=== PATIENT | male | born 1950 | race Caucasian/White ===

== ENCOUNTER 2019-09-28 06:20 | Day surgery (SDC) | payer MEDICARE, SELFPAY | END 2019-09-28 09:30 | disposition home or self-care (01) | LOC: CHSSURGERY 06:24 | PROVIDERS: PCP Family Medicine; Visit Provider Surgery | DX: Z12.11 Encounter for screening for malignant neoplasm of colon (principal); Z86.010 Personal history of colon polyps; D12.5 Benign neoplasm of sigmoid colon; K57.90 Diverticulosis of intestine, part unspecified, without perforation or abscess without bleeding | CPT/HCPCS: 45385; 812; 88305; J2370; J2704; J7120 ==

== ENCOUNTER 2019-10-30 07:08 | Outpatient (CLI) | payer MEDICARE, SELFPAY ==
[2019-10-30 07:25] LABS: Basophils Absolute Auto 0.02 K/mm3 (0.00-0.10); Basophils Percent Auto 0.5 % (0.0-1.0); Eosinophils Absolute Auto 0.07 K/mm3 (0.02-0.50); Eosinophils Percent Auto 1.6 % (1.0-6.0); Hematocrit 42.8 % (37.0-46.0); Immature Granulocyte Absolute 0.01 K/mm3 (0.00-0.00); Immature Granulocyte Percent A 0.2 % (0.0-0.0); Lymphocytes Absolute Auto 1.52 K/mm3 (1.10-4.50); Lymphocytes Percent Auto 34.5 % (18.0-42.0); Mean Corpuscular Hemoglobin 32.3 pg (27.0-31.0); Mean Corpuscular Volume 92.2 fL (78.0-102.0); Mean Platelet Volume 10.4 fl (8.7-11.0); Monocytes Absolute Auto 0.46 K/mm3 (0.10-0.90); Monocytes Percent Auto 10.5 % (2.0-11.0); Neutrophils Absolute Auto 2.3 K/mm3 (1.7-7.2); Neutrophils Percent Auto 52.7 % (50.0-70.0); Platelet Count Result 164 K/mm3 (150-420); Red Blood Count 4.64 M/mm3 (4.70-6.10); Red Cell Distribution Width 13.2 % (11.6-14.4); White Blood Count 4.4 K/mm3 (4.8-10.8)
[2019-10-30 08:24] LABS: Albumin Level 3.8 g/dL (3.4-5.0); Anion Gap 11.9 mmol/L (7-16); Blood Urea Nitrogen 24 mg/dL (7-18); Calcium 8.7 mg/dL (8.5-10.1); Carbon Dioxide 29 mmol/L (21-32); Chloride 106 mmol/L (98-108); Estimated Glomerular Filt Rate 55; Glucose 98 mg/dL (70-99); Osmolality Calculated 300 mOsm/kg (285-295); Potassium 3.9 mmol/L (3.5-5.1); Sodium 143 mmol/L (136-145)
[2019-10-30 08:34] LABS: Phosphorus 3.4 mg/dL (2.6-4.7)
[2019-11-01 11:46] LABS: Parathyroid Intact 49 pg/mL (14-64)
[2019-11-01 19:09] LABS: Vitamin D 25 Hydroxy 38 ng/mL (30-100)
== END 2019-10-30 07:09 | disposition home or self-care (01) ==
PROVIDERS: PCP Family Medicine
DX: N18.3 Chronic kidney disease, stage 3 (moderate) (principal)
CPT/HCPCS: 36415; 80069; 82306; 83970; 85025

== ENCOUNTER 2020-06-07 08:38 | Outpatient (CLI) | payer MEDICARE, SELFPAY ==
--- NOTE | ~2020-06-07 | XR_ITS ---
EXAMINATION: XR lumbar spine 2-3V DATE: 06/07/2020 09:17 INDICATION: Dorsalgia. TECHNIQUE: 3 views of lumbar spine were obtained. COMPARISON: None. FINDINGS: There is 8 degrees levocurvature of lumbar spine. There are bilateral L5 pars defects. Ther e is 7 mm anterolisthesis of L5 on S1. Vertebral body heights are normal. There is mildly decreased d isc at L5-S1. There are endplate osteophytes at all levels. IMPRESSION: 1. Bilateral L5 pars defects with grade 1 anterolisthesis of L5 on S1. 2. Mild lumbar spondylosis. Reviewed, dictated and finalized at location A.
--- NOTE | ~2020-06-07 | XR_ITS ---
EXAMINATION: XR thoracic spine 3V DATE: 06/07/2020 09:18 INDICATION: Dorsalgia. TECHNIQUE: 3 views of thoracic spine were obtained. COMPARISON: Chest 2 views 06/09/2012 FINDINGS: Bone alignment is normal. Vertebral body heights and intervertebral disc heights are normal . There are endplate osteophytes at most levels. Median sternotomy wires are noted. IMPRESSION: 1. Mild thoracic spondylosis. Reviewed, dictated and finalized at location A.
== END 2020-06-07 08:39 | disposition home or self-care (01) ==
PROVIDERS: PCP Family Medicine; Visit Provider Family Medicine
DX: M54.6 Pain in thoracic spine (principal); M54.5 Low back pain
CPT/HCPCS: 72072; 72100

== ENCOUNTER 2020-06-11 12:50 | Outpatient (RCR) | payer MEDICARE, SELFPAY ==
--- NOTE | 2020-06-11 14:04 | PTOPEVAL ---
Thank you for referring Daniel Tatum to [facility].? The patient is scheduled to be seen for therapy? ____x/week for ___ weeks. Please review, sign, date and return this plan of care ANA. I agree with and certify that the following plan of care is medically necessary. Referring Physician Date Admitting Provider: Attending Provider: William Vicente MD Referring Provider: *PT Outpatient Evaluation Start: 06/11/20 13:05 Freq: Status: Active Protocol: Document 06/11/20 13:10 [facility] (Rec: 06/11/20 14:04 [facility] [id number]) Therapy Assessment Status Assessment Status Assessment Status Evaluation Outpatient Past Medical History Past Medical History Source of Past Medical History Patient Other Source of Past Medical History see patient intake form Evaluation Information Problem Diagnosis low back pain Onset 06/07/20 Additional Evaluation Detail oswestry = 58% functionally declined Subjective Information patient reports he is having Query Text:As Reported By Patient/ pain in the back. he reports Family he hurt his back several times in the past. however, he reports his most recent injury was about 2-3 weeks ago. he reports pain was only for about 24-48 hours. 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 he reports the pain was from his back to his navel. he reports he had x-rays of the lumbar spine and was given oral steroids. he reports these helped him a ton. he reports he is much better, but he has increased stiffness with sitting, twisting activities, avoiding lifting. he reports no NTB down the legs. he reports however, initially he did have burning from back to his navel. he reports majority of this sensation is gone. Prior Level of Function Comments Additional Prior Level of Function he reports prior to injury, he Comments was pretty active. he reports he is in the middle of building a house and may
== END 2020-06-20 13:47 | disposition home or self-care (01) ==
LOC: CHSPT 12:50
PROVIDERS: PCP Family Medicine; Visit Provider Family Medicine
DX: M54.9 Dorsalgia, unspecified (principal)
CPT/HCPCS: 97014; 97110; 97140; 97161; G0283

== ENCOUNTER 2020-10-07 08:01 | Outpatient (CLI) | payer MEDICARE, SELFPAY ==
[2020-10-07 08:19] LABS: Basophils Absolute Auto 0.04 K/mm3 (0.00-0.10); Basophils Percent Auto 0.8 % (0.0-1.0); Eosinophils Absolute Auto 0.12 K/mm3 (0.02-0.50); Eosinophils Percent Auto 2.4 % (1.0-6.0); Hematocrit 42.8 % (37.0-46.0); Hemoglobin 14.8 g/dL (12.4-15.3); Immature Granulocyte Absolute 0.01 K/mm3 (0.00-0.00); Immature Granulocyte Percent A 0.2 % (0.0-0.0); Lymphocytes Absolute Auto 1.32 K/mm3 (1.10-4.50); Lymphocytes Percent Auto 26.3 % (18.0-42.0); Mean Corpuscular HGB Conc 34.6 g/dL (32.0-36.0); Mean Corpuscular Hemoglobin 32.2 pg (27.0-31.0); Mean Platelet Volume 10.7 fl (8.7-11.0); Monocytes Absolute Auto 0.42 K/mm3 (0.10-0.90); Monocytes Percent Auto 8.4 % (2.0-11.0); Neutrophils Absolute Auto 3.1 K/mm3 (1.7-7.2); Neutrophils Percent Auto 61.9 % (50.0-70.0); Platelet Count Result 157 K/mm3 (150-420); Red Cell Distribution Width 13.3 % (11.6-14.4)
[2020-10-07 08:23] LABS: Creatinine Urine 194.28 mg/dL (40-278); Total Protein Urine Random 25.3 mg/dL (0.0-11.9); Ur Ttl Prot Creatinine Ratio 0.13 mg/mg (0-0.20)
[2020-10-07 08:24] LABS: Add Urine Microscopic? NO; Appearance Urine Clear (Clear); Bilirubin Urine Negative (Negative); Blood Urine Negative (Negative); Color Urine Yellow (Yellow); Glucose Urine UA Negative (Negative); Ketones Urine Negative (Negative); Leukocyte Esterase Ur Negative (Negative); Nitrate Urine Negative (Negative); Protein Urine Negative (Negative); Specific Grav Ur 1.025 (1.010-1.020); Urobilinogen Urine 0.2 mg/dL (0.2-1.0)
[2020-10-07 08:46] LABS: Albumin Level 3.7 g/dL (3.4-5.0); Anion Gap 8 mmol/L (8-16); Blood Urea Nitrogen 20 mg/dL (7-18); Calcium 9.6 mg/dL (8.5-10.1); Carbon Dioxide 30 mmol/L (21-32); Chloride 105 mmol/L (98-108); Estimated Glomerular Filt Rate 51; Glucose 107 mg/dL (70-99); Osmolality Calculated 298 mOsm/kg (285-295); Phosphorus 3.4 mg/dL (2.6-4.7); Potassium 3.9 mmol/L (3.5-5.1); Sodium 143 mmol/L (136-145)
[2020-10-09 12:22] LABS: Parathyroid Intact 34 pg/mL (14-64)
== END 2020-10-07 08:02 | disposition home or self-care (01) ==
PROVIDERS: PCP Family Medicine
DX: N18.30 Chronic kidney disease, stage 3 unspecified (principal)
CPT/HCPCS: 36415; 80069; 81003; 82570; 83970; 84156; 85025

== ENCOUNTER 2020-10-15 07:36 | Outpatient (CLI) | payer MEDICARE, SELFPAY ==
[2020-10-15 07:45] LABS: Basophils Absolute Auto 0.02 K/mm3 (0.00-0.10); Basophils Percent Auto 0.5 % (0.0-1.0); Eosinophils Absolute Auto 0.08 K/mm3 (0.02-0.50); Hematocrit 43.8 % (37.0-46.0); Hemoglobin 14.9 g/dL (12.4-15.3); Immature Granulocyte Absolute 0.01 K/mm3 (0.00-0.00); Immature Granulocyte Percent A 0.2 % (0.0-0.0); Lymphocytes Absolute Auto 1.27 K/mm3 (1.10-4.50); Mean Corpuscular Hemoglobin 31.7 pg (27.0-31.0); Mean Corpuscular Volume 93.2 fL (78.0-102.0); Mean Platelet Volume 10.5 fl (8.7-11.0); Monocytes Absolute Auto 0.41 K/mm3 (0.10-0.90); Neutrophils Absolute Auto 2.3 K/mm3 (1.7-7.2); Neutrophils Percent Auto 56.3 % (50.0-70.0); Platelet Count Result 164 K/mm3 (150-420); Red Cell Distribution Width 13.2 % (11.6-14.4); White Blood Count 4.1 K/mm3 (4.8-10.8)
[2020-10-15 08:08] LABS: Anion Gap 6 mmol/L (8-16); Blood Urea Nitrogen 17 mg/dL (7-18); Calcium 8.8 mg/dL (8.5-10.1); Carbon Dioxide 31 mmol/L (21-32); Chloride 104 mmol/L (98-108); Estimated Glomerular Filt Rate 52; Glucose 118 mg/dL (70-99); Osmolality Calculated 294 mOsm/kg (285-295); Sodium 141 mmol/L (136-145)
[2020-10-15 14:32] LABS: Hemoglobin A1C 5.7 % (<5.7)
== END 2020-10-15 07:37 | disposition home or self-care (01) ==
LOC: CHSLAB 07:37
PROVIDERS: PCP Family Medicine; Visit Provider Family Medicine
DX: I10 Essential (primary) hypertension (principal); R73.9 Hyperglycemia, unspecified
CPT/HCPCS: 36415; 80048; 83036; 85025

== ENCOUNTER 2021-03-31 14:52 | Outpatient (CLI) | payer MEDICARE, SELFPAY ==
[2021-03-31 15:40] LABS: SARS-CoV-2 Ag Negative (Negative)
== END 2021-03-31 14:53 | disposition home or self-care (01) ==
LOC: CHSIMG 14:54
PROVIDERS: PCP Family Medicine; Visit Provider Family Medicine
DX: J00 Acute nasopharyngitis [common cold] (principal); Z20.822 Contact with and (suspected) exposure to COVID-19
CPT/HCPCS: 87426; C9803

== ENCOUNTER 2021-04-17 07:00 | Outpatient (CLI) | payer MEDICARE, SELFPAY ==
[2021-04-17 08:36] LABS: Alanine Aminotransferase 33 U/L (16-63); Albumin Level 3.5 g/dL (3.4-5.0); Alkaline Phosphatase 78 U/L (46-116); Anion Gap 8 mmol/L (8-16); Aspartate Amino Transferase 17 U/L (15-37); Bilirubin,Total 0.8 mg/dL (0.00-1.00); Blood Urea Nitrogen 16 mg/dL (7-18); Calcium 8.9 mg/dL (8.5-10.1); Carbon Dioxide 29 mmol/L (21-32); Chloride 106 mmol/L (98-108); Cholesterol 132 mg/dL (0-200); Estimated Glomerular Filt Rate 59; Glucose 108 mg/dL (70-99); HDL Direct 50 mg/dL (40-60); LDL Cholesterol Calculated 67 mg/dL (<130); Osmolality Calculated 298 mOsm/kg (285-295); Potassium 3.8 mmol/L (3.5-5.1); Prostate Specific Antigen 2.5 ng/mL (< OR = 4.0); Sodium 143 mmol/L (136-145); Thyroid Stimulating Hormone 1.48 uIU/mL (0.36-3.74); Total Protein 7.1 g/dL (6.4-8.2); Triglycerides 75 mg/dL (0-150)
== END 2021-04-17 07:01 | disposition home or self-care (01) ==
LOC: CHSLAB 07:01
PROVIDERS: PCP Family Medicine; Visit Provider Family Medicine
DX: I10 Essential (primary) hypertension (principal); E78.2 Mixed hyperlipidemia; Z12.5 Encounter for screening for malignant neoplasm of prostate
CPT/HCPCS: 36415; 80053; 80061; 84153; 84443; G0103

== ENCOUNTER 2021-10-13 07:04 | Outpatient (CLI) | payer MEDICARE, SELFPAY ==
[2021-10-13 07:43] LABS: Basophils Absolute Auto 0.03 K/mm3 (0.00-0.10); Basophils Percent Auto 0.7 % (0.0-1.0); Eosinophils Absolute Auto 0.18 K/mm3 (0.02-0.50); Eosinophils Percent Auto 4.3 % (1.0-6.0); Hematocrit 45.7 % (37.0-46.0); Hemoglobin 15.6 g/dL (12.4-15.3); Immature Granulocyte Absolute 0.01 K/mm3 (0.00-0.00); Immature Granulocyte Percent A 0.2 % (0.0-0.0); Lymphocytes Absolute Auto 1.22 K/mm3 (1.10-4.50); Lymphocytes Percent Auto 29.4 % (18.0-42.0); Mean Corpuscular HGB Conc 34.1 g/dL (32.0-36.0); Mean Corpuscular Hemoglobin 32.2 pg (27.0-31.0); Mean Corpuscular Volume 94.2 fL (78.0-102.0); Monocytes Absolute Auto 0.38 K/mm3 (0.10-0.90); Monocytes Percent Auto 9.2 % (2.0-11.0); Neutrophils Absolute Auto 2.3 K/mm3 (1.7-7.2); Neutrophils Percent Auto 56.2 % (50.0-70.0); Platelet Count Result 174 K/mm3 (150-420); Red Blood Count 4.85 M/mm3 (4.70-6.10); Red Cell Distribution Width 13.2 % (11.6-14.4); White Blood Count 4.2 K/mm3 (4.8-10.8)
[2021-10-13 09:04] LABS: Creatinine Urine 128.34 mg/dL (40-278); MALB Creatinine Ratio 15.5 mg/g (0-30); Microalbumin Urine Random 19.9 mg/L; Total Protein Urine Random 22.3 mg/dL (0.0-11.9); Ur Ttl Prot Creatinine Ratio 0.17 mg/mg (0-0.20)
[2021-10-13 09:16] LABS: Alanine Aminotransferase 27 U/L (16-63); Albumin Level 3.7 g/dL (3.4-5.0); Alkaline Phosphatase 76 U/L (46-116); Anion Gap 10 mmol/L (8-16); Aspartate Amino Transferase 18 U/L (15-37); Bilirubin,Total 0.7 mg/dL (0.00-1.00); Blood Urea Nitrogen 16 mg/dL (7-18); Calcium 8.9 mg/dL (8.5-10.1); Carbon Dioxide 29 mmol/L (21-32); Chloride 105 mmol/L (98-108); Estimated Glomerular Filt Rate 53; Glucose 108 mg/dL (70-99); Osmolality Calculated 300 mOsm/kg (285-295); Phosphorus 3.1 mg/dL (2.6-4.7); Potassium 4.1 mmol/L (3.5-5.1); Prostate Specific Antigen 1.9 ng/mL (< OR = 4.0); Sodium 144 mmol/L (136-145); Total Protein 7.4 g/dL (6.4-8.2)
[2021-10-13 16:49] LABS: Add Urine Microscopic? NO; Appearance Urine Clear (Clear); Bilirubin Urine Negative (Negative); Blood Urine Negative (Negative); Color Urine Light Yellow (Yellow); Glucose Urine UA Negative (Negative); Ketones Urine Negative (Negative); Leukocyte Esterase Ur Negative (Negative); Nitrate Urine Negative (Negative); Protein Urine Negative (Negative); Urobilinogen Urine 0.2 mg/dL (0.2-1.0); pH Urine 7.5 (5.0-8.0)
== END 2021-10-13 07:05 | disposition home or self-care (01) ==
LOC: CHSLAB 07:10
PROVIDERS: PCP Family Medicine
DX: E78.2 Mixed hyperlipidemia (principal); I10 Essential (primary) hypertension; Z12.5 Encounter for screening for malignant neoplasm of prostate; N18.30 Chronic kidney disease, stage 3 unspecified
CPT/HCPCS: 36415; 80053; 81003; 82043; 82570; 84100; 84153; 84156; 85025; G0103

== ENCOUNTER 2022-04-24 07:16 | Outpatient (CLI) | payer MEDICARE, SELFPAY ==
[2022-04-24 07:26] LABS: Basophils Absolute Auto 0.04 K/mm3 (0.00-0.10); Basophils Percent Auto 0.9 % (0.0-1.0); Eosinophils Absolute Auto 0.19 K/mm3 (0.02-0.50); Eosinophils Percent Auto 4.3 % (1.0-6.0); Hematocrit 43.2 % (37.0-46.0); Hemoglobin 14.7 g/dL (12.4-15.3); Immature Granulocyte Absolute 0.01 K/mm3 (0.00-0.00); Immature Granulocyte Percent A 0.2 % (0.0-0.0); Lymphocytes Absolute Auto 1.35 K/mm3 (1.10-4.50); Lymphocytes Percent Auto 30.5 % (18.0-42.0); Mean Corpuscular Hemoglobin 31.7 pg (27.0-31.0); Mean Corpuscular Volume 93.3 fL (78.0-102.0); Mean Platelet Volume 10.8 fl (8.7-11.0); Monocytes Absolute Auto 0.45 K/mm3 (0.10-0.90); Monocytes Percent Auto 10.2 % (2.0-11.0); Neutrophils Absolute Auto 2.4 K/mm3 (1.7-7.2); Neutrophils Percent Auto 53.9 % (50.0-70.0); Platelet Count Result 154 K/mm3 (150-420); Red Blood Count 4.63 M/mm3 (4.70-6.10); Red Cell Distribution Width 13.7 % (11.6-14.4); White Blood Count 4.4 K/mm3 (4.8-10.8)
[2022-04-24 07:43] LABS: Alanine Aminotransferase 25 U/L (16-63); Albumin Level 3.7 g/dL (3.4-5.0); Alkaline Phosphatase 86 U/L (46-116); Anion Gap 9 mmol/L (8-16); Aspartate Amino Transferase 19 U/L (15-37); Bilirubin,Total 0.7 mg/dL (0.00-1.00); Blood Urea Nitrogen 15 mg/dL (7-18); Calcium 8.8 mg/dL (8.5-10.1); Carbon Dioxide 27 mmol/L (21-32); Chloride 102 mmol/L (98-108); Estimated Glomerular Filt Rate 51; Glucose 113 mg/dL (70-99); Osmolality Calculated 287 mOsm/kg (285-295); Potassium 3.5 mmol/L (3.5-5.1); Sodium 138 mmol/L (136-145); Total Protein 7.3 g/dL (6.4-8.2)
== END 2022-04-24 07:17 | disposition home or self-care (01) ==
LOC: CHSLAB 07:18
PROVIDERS: PCP Family Medicine; Visit Provider Family Medicine
DX: I10 Essential (primary) hypertension (principal)
CPT/HCPCS: 36415; 80053; 85025

== ENCOUNTER 2022-10-23 07:20 | Outpatient (CLI) | payer MEDICARE, SELFPAY ==
[2022-10-23 07:49] LABS: Appearance Urine Clear (Clear); Bilirubin Urine Negative (Negative); Blood Urine Negative (Negative); Color Urine Light Yellow (Yellow); Glucose Urine UA Negative (Negative); Ketones Urine Negative (Negative); Leukocyte Esterase Ur Negative (Negative); Nitrate Urine Negative (Negative); Protein Urine Negative (Negative); Specific Grav Ur <= 1.005 (1.010-1.020); Urobilinogen Urine 0.2 mg/dL (0.2-1.0); pH Urine 6.5 (5.0-8.0)
[2022-10-23 07:50] LABS: Basophils Absolute Auto 0.02 K/mm3 (0.00-0.10); Basophils Percent Auto 0.5 % (0.0-1.0); Eosinophils Absolute Auto 0.08 K/mm3 (0.02-0.50); Eosinophils Percent Auto 1.8 % (1.0-6.0); Hematocrit 47.5 % (37.0-46.0); Hemoglobin 16.5 g/dL (12.4-15.3); Immature Granulocyte Absolute 0.01 K/mm3 (0.00-0.00); Immature Granulocyte Percent A 0.2 % (0.0-0.0); Lymphocytes Absolute Auto 1.63 K/mm3 (1.10-4.50); Lymphocytes Percent Auto 37.1 % (18.0-42.0); Mean Corpuscular HGB Conc 34.7 g/dL (32.0-36.0); Mean Corpuscular Hemoglobin 32.5 pg (27.0-31.0); Mean Corpuscular Volume 93.7 fL (78.0-102.0); Monocytes Percent Auto 9.1 % (2.0-11.0); Neutrophils Absolute Auto 2.3 K/mm3 (1.7-7.2); Neutrophils Percent Auto 51.3 % (50.0-70.0); Platelet Count Result 157 K/mm3 (150-420); Red Blood Count 5.07 M/mm3 (4.70-6.10); Red Cell Distribution Width 13.2 % (11.6-14.4); White Blood Count 4.4 K/mm3 (4.8-10.8)
[2022-10-23 07:54] LABS: Add Urine Microscopic? NO
[2022-10-23 09:05] LABS: Creatinine Urine 24.03 mg/dL (40-278); Microalbumin Urine Random < 13.0 mg/L; Total Protein Urine Random < 6.0 mg/dL (0.0-11.9); Ur Ttl Prot Creatinine Ratio 0.25 mg/mg (0-0.20)
[2022-10-23 09:20] LABS: Albumin Level 4.1 g/dL (3.4-5.0); Alkaline Phosphatase 96 U/L (46-116); Anion Gap 13 mmol/L (8-16); Aspartate Amino Transferase 24 U/L (15-37); Bilirubin,Total 0.8 mg/dL (0.00-1.00); Blood Urea Nitrogen 15 mg/dL (7-18); Carbon Dioxide 26 mmol/L (21-32); Chloride 101 mmol/L (98-108); Osmolality Calculated 285 mOsm/kg (285-295); Phosphorus 3.8 mg/dL (2.6-4.7); Potassium 4.1 mmol/L (3.5-5.1); Sodium 140 mmol/L (136-145)
[2022-10-23 09:30] LABS: Alanine Aminotransferase 40 U/L (16-63); Calcium 9.7 mg/dL (8.5-10.1); Estimated Glomerular Filt Rate 49
[2022-10-23 09:53] LABS: Glucose 113 mg/dL (70-99); Thyroid Stimulating Hormone 1.35 uIU/mL (0.36-3.74)
== END 2022-10-23 07:21 | disposition home or self-care (01) ==
LOC: CHSLAB 07:26
PROVIDERS: PCP Family Medicine
DX: I10 Essential (primary) hypertension (principal); N18.30 Chronic kidney disease, stage 3 unspecified
CPT/HCPCS: 36415; 80053; 81003; 82043; 82570; 84100; 84156; 84443; 85025

== ENCOUNTER 2023-03-18 07:18 | Outpatient (CLI) | payer MEDICARE, SELFPAY ==
--- NOTE | ~2023-03-18 | MR_ITS ---
EXAMINATION: MR abdomen wo/w con DATE: 03/18/2023 09:03 INDICATION: Kidney mass. TECHNIQUE: Magnetic resonance imaging (MRI) of the abdomen was performed without and with 20 mL Multi Pawan intravenous contrast. COMPARISON: None. FINDINGS: The liver is normal. Calcifications in the spleen are consistent with old granulomatous disease. Ther e is a gallstone in the gallbladder, which is normal in size. The pancreas and adrenal glands are nor mal. There are cysts in the kidneys measuring up to 11 mm on the left. There are no dilated loops of bowel. There are no pathologically enlarged lymph nodes. There is no free intraperitoneal fluid. IMPRESSION: 1. Benign cysts in the kidneys. Reviewed, dictated and finalized at location L.
== END 2023-03-18 07:19 | disposition home or self-care (01) ==
LOC: CHSIMG 07:22
PROVIDERS: PCP Family Medicine
DX: N28.89 Other specified disorders of kidney and ureter (principal)
CPT/HCPCS: 74183; A9577

== ENCOUNTER 2023-04-26 07:17 | Outpatient (CLI) | payer MEDICARE, SELFPAY ==
[2023-04-26 07:35] LABS: Basophils Absolute Auto 0.03 K/mm3 (0.00-0.10); Basophils Percent Auto 0.7 % (0.0-1.0); Eosinophils Absolute Auto 0.11 K/mm3 (0.02-0.50); Eosinophils Percent Auto 2.5 % (1.0-6.0); Hematocrit 43.6 % (37.0-46.0); Hemoglobin 14.8 g/dL (12.4-15.3); Immature Granulocyte Absolute 0.01 K/mm3 (0.00-0.00); Immature Granulocyte Percent A 0.2 % (0.0-0.0); Lymphocytes Percent Auto 29.7 % (18.0-42.0); Mean Corpuscular HGB Conc 33.9 g/dL (32.0-36.0); Mean Corpuscular Hemoglobin 32.1 pg (27.0-31.0); Mean Corpuscular Volume 94.6 fL (78.0-102.0); Mean Platelet Volume 10.6 fl (8.7-11.0); Monocytes Absolute Auto 0.35 K/mm3 (0.10-0.90); Neutrophils Absolute Auto 2.6 K/mm3 (1.7-7.2); Neutrophils Percent Auto 58.9 % (50.0-70.0); Platelet Count Result 157 K/mm3 (150-420); Red Blood Count 4.61 M/mm3 (4.70-6.10); Red Cell Distribution Width 13.4 % (11.6-14.4); White Blood Count 4.4 K/mm3 (4.8-10.8)
[2023-04-26 08:36] LABS: Alanine Aminotransferase 25 U/L (16-63); Albumin Level 3.8 g/dL (3.4-5.0); Alkaline Phosphatase 86 U/L (46-116); Anion Gap 8 mmol/L (8-16); Aspartate Amino Transferase 26 U/L (15-37); Bilirubin,Total 0.8 mg/dL (0.00-1.00); Blood Urea Nitrogen 18 mg/dL (7-18); Calcium 9.1 mg/dL (8.5-10.1); Carbon Dioxide 28 mmol/L (21-32); Chloride 105 mmol/L (98-108); Cholesterol 159 mg/dL (0-200); Estimated Glomerular Filt Rate 50; Glucose 113 mg/dL (70-99); HDL Direct 55 mg/dL (40-60); LDL Cholesterol Calculated 63 mg/dL (<130); Osmolality Calculated 294 mOsm/kg (285-295); Potassium 4.1 mmol/L (3.5-5.1); Sodium 141 mmol/L (136-145); Thyroid Stimulating Hormone 1.89 uIU/mL (0.36-3.74); Total Protein 7.2 g/dL (6.4-8.2); Triglycerides 203 mg/dL (0-150); Uric Acid 5.5 mg/dL (3.5-7.2)
== END 2023-04-26 07:18 | disposition home or self-care (01) ==
LOC: CHSLAB 07:20
PROVIDERS: PCP Family Medicine; Visit Provider Family Medicine
DX: I10 Essential (primary) hypertension (principal); E78.2 Mixed hyperlipidemia
CPT/HCPCS: 36415; 80053; 80061; 84443; 84550; 85025

== ENCOUNTER 2023-07-12 07:12 | Outpatient (CLI) | payer MEDICARE, SELFPAY ==
[2023-07-12 07:42] LABS: Appearance Urine Clear (Clear); Bilirubin Urine Negative (Negative); Blood Urine Negative (Negative); Color Urine Yellow (Yellow); Glucose Urine UA Negative (Negative); Ketones Urine Negative (Negative); Leukocyte Esterase Ur Negative (Negative); Nitrate Urine Negative (Negative); Protein Urine Negative (Negative); Specific Grav Ur 1.015 (1.010-1.020); Urobilinogen Urine 0.2 mg/dL (0.2-1.0)
[2023-07-12 07:43] LABS: Basophils Absolute Auto 0.03 K/mm3 (0.00-0.10); Basophils Percent Auto 0.7 % (0.0-1.0); Eosinophils Absolute Auto 0.09 K/mm3 (0.02-0.50); Eosinophils Percent Auto 2.2 % (1.0-6.0); Hematocrit 43.6 % (37.0-46.0); Hemoglobin 14.6 g/dL (12.4-15.3); Immature Granulocyte Absolute 0.01 K/mm3 (0.00-0.00); Immature Granulocyte Percent A 0.2 % (0.0-0.0); Lymphocytes Percent Auto 29.1 % (18.0-42.0); Mean Corpuscular HGB Conc 33.5 g/dL (32.0-36.0); Mean Corpuscular Hemoglobin 31.9 pg (27.0-31.0); Mean Corpuscular Volume 95.4 fL (78.0-102.0); Monocytes Absolute Auto 0.35 K/mm3 (0.10-0.90); Monocytes Percent Auto 8.5 % (2.0-11.0); Neutrophils Absolute Auto 2.4 K/mm3 (1.7-7.2); Neutrophils Percent Auto 59.3 % (50.0-70.0); Platelet Count Result 157 K/mm3 (150-420); Red Blood Count 4.57 M/mm3 (4.70-6.10); Red Cell Distribution Width 13.3 % (11.6-14.4); White Blood Count 4.1 K/mm3 (4.8-10.8)
[2023-07-12 07:49] LABS: Creatinine Urine 112.38 mg/dL (40-278); Total Protein Urine Random 20.3 mg/dL (0.0-11.9); Ur Ttl Prot Creatinine Ratio 0.18 mg/mg (0-0.20)
[2023-07-12 07:51] LABS: Add Urine Microscopic? NO
[2023-07-12 08:33] LABS: Alanine Aminotransferase 31 U/L (16-63); Albumin Level 3.5 g/dL (3.4-5.0); Alkaline Phosphatase 88 U/L (46-116); Anion Gap 5 mmol/L (8-16); Aspartate Amino Transferase 13 U/L (15-37); Bilirubin,Total 0.6 mg/dL (0.00-1.00); Blood Urea Nitrogen 19 mg/dL (7-18); Calcium 8.8 mg/dL (8.5-10.1); Carbon Dioxide 32 mmol/L (21-32); Chloride 104 mmol/L (98-108); Creatine Kinase 61 U/L (39-308); Estimated Glomerular Filt Rate 55; Glucose 107 mg/dL (70-99); Iron 98 ug/dL (65-175); Magnesium 1.9 mg/dL (1.8-2.4); Osmolality Calculated 294 mOsm/kg (285-295); Percent Iron Saturation 32 % (12-57); Phosphorus 3.4 mg/dL (2.6-4.7); Potassium 4.3 mmol/L (3.5-5.1); Sodium 141 mmol/L (136-145); Total Protein 7.2 g/dL (6.4-8.2); Uric Acid 4.9 mg/dL (3.5-7.2)
[2023-07-13 10:16] LABS: Ferritin 108 ng/mL (26-388)
[2023-07-14 18:06] LABS: Parathyroid Intact 52 pg/mL (14-64)
[2023-07-16 12:41] LABS: Vitamin D 25 Hydroxy 32 ng/mL (30-100)
[2023-07-17 00:19] LABS: Creatinine, Random Urine 109 mg/dL (20-320); Total Protein/Creatinine Ratio 110 mg/g creat (25-148)
== END 2023-07-12 07:13 | disposition home or self-care (01) ==
PROVIDERS: PCP Family Medicine
DX: N18.2 Chronic kidney disease, stage 2 (mild) (principal); E55.9 Vitamin D deficiency, unspecified
CPT/HCPCS: 36415; 80053; 81003; 82306; 82550; 82570; 82728; 83540; 83550; 83735; 83970; 84100; 84156; 84166; 84550; 85025

== ENCOUNTER 2023-09-02 09:44 | Outpatient (CLI) | payer MEDICARE, SELFPAY ==
--- NOTE | ~2023-09-02 | XR_ITS ---
XR ankle RT min 3V DATE: 09/02/2023 09:58 INDICATION: Injury one week ago. Medial ankle pain TECHNIQUE: 3 views COMPARISON: None FINDINGS: There is prominent plantar calcaneal enthesopathy without erosive change or periostitis. Th ere is very prominent calcification at the distal Achilles tendon. There is mild medial soft tissue swelling. No fracture or dislocation of the ankle or disruption of t he ankle mortise is detected. IMPRESSION: Mild medial soft tissue swelling; no fracture or dislocation Plantar calcaneal enthesopathy Very prominent distal Achilles tendon calcification Reviewed, dictated and finalized at location L. ICATIONS SALES REPRESENTATIVE
== END 2023-09-02 09:45 | disposition home or self-care (01) ==
LOC: CHSIMG 09:46
PROVIDERS: PCP Family Medicine; Visit Provider Family Medicine
DX: M25.571 Pain in right ankle and joints of right foot (principal); M79.89 Other specified soft tissue disorders; M77.31 Calcaneal spur, right foot
CPT/HCPCS: 73610

== ENCOUNTER 2023-10-26 08:57 | Outpatient (CLI) | payer MEDICARE, SELFPAY ==
[2023-10-26 09:20] LABS: Basophils Absolute Auto 0.03 K/mm3 (0.00-0.10); Basophils Percent Auto 0.7 % (0.0-1.0); Eosinophils Percent Auto 2.3 % (1.0-6.0); Hemoglobin 14.7 g/dL (12.4-15.3); Lymphocytes Absolute Auto 1.49 K/mm3 (1.10-4.50); Lymphocytes Percent Auto 33.6 % (18.0-42.0); Mean Corpuscular HGB Conc 33.4 g/dL (32.0-36.0); Mean Corpuscular Hemoglobin 30.8 pg (27.0-31.0); Mean Corpuscular Volume 92.2 fL (78.0-102.0); Mean Platelet Volume 10.2 fl (8.7-11.0); Monocytes Absolute Auto 0.39 K/mm3 (0.10-0.90); Monocytes Percent Auto 8.8 % (2.0-11.0); Neutrophils Absolute Auto 2.4 K/mm3 (1.7-7.2); Neutrophils Percent Auto 54.6 % (50.0-70.0); Platelet Count Result 169 K/mm3 (150-420); Red Blood Count 4.77 M/mm3 (4.70-6.10); Red Cell Distribution Width 13.1 % (11.6-14.4); White Blood Count 4.4 K/mm3 (4.8-10.8)
[2023-10-26 10:21] LABS: Alanine Aminotransferase 31 U/L (16-63); Albumin Level 3.6 g/dL (3.4-5.0); Alkaline Phosphatase 85 U/L (46-116); Anion Gap 8 mmol/L (8-16); Aspartate Amino Transferase 16 U/L (15-37); Bilirubin,Total 0.7 mg/dL (0.00-1.00); Blood Urea Nitrogen 13 mg/dL (7-18); Calcium 8.7 mg/dL (8.5-10.1); Carbon Dioxide 29 mmol/L (21-32); Chloride 105 mmol/L (98-108); Estimated Glomerular Filt Rate > 60; Glucose 103 mg/dL (70-99); Osmolality Calculated 294 mOsm/kg (285-295); Potassium 4.4 mmol/L (3.5-5.1); Sodium 142 mmol/L (136-145); Total Protein 7.2 g/dL (6.4-8.2); Uric Acid 4.9 mg/dL (3.5-7.2)
[2023-10-26 11:11] LABS: Thyroid Stimulating Hormone 1.16 uIU/mL (0.36-3.74)
== END 2023-10-26 08:58 | disposition home or self-care (01) ==
LOC: CHSLAB 09:00
PROVIDERS: PCP Family Medicine; Visit Provider Family Medicine
DX: I10 Essential (primary) hypertension (principal)
CPT/HCPCS: 36415; 80053; 84443; 84550; 85025

== ENCOUNTER 2023-12-13 07:13 | Outpatient (CLI) | payer MEDICARE, SELFPAY ==
[2023-12-13 07:32] LABS: Basophils Absolute Auto 0.04 K/mm3 (0.00-0.10); Eosinophils Absolute Auto 0.11 K/mm3 (0.02-0.50); Eosinophils Percent Auto 2.7 % (1.0-6.0); Hematocrit 43.1 % (37.0-46.0); Hemoglobin 14.8 g/dL (12.4-15.3); Immature Granulocyte Absolute 0.01 K/mm3 (0.00-0.00); Immature Granulocyte Percent A 0.2 % (0.0-0.0); Lymphocytes Absolute Auto 1.26 K/mm3 (1.10-4.50); Lymphocytes Percent Auto 30.6 % (18.0-42.0); Mean Corpuscular HGB Conc 34.3 g/dL (32-36); Mean Corpuscular Hemoglobin 31.4 pg (27.0-31.0); Mean Corpuscular Volume 91.3 fL (78.0-102.0); Mean Platelet Volume 9.8 fl (8.7-11.0); Monocytes Absolute Auto 0.28 K/mm3 (0.10-0.90); Monocytes Percent Auto 6.8 % (2.0-11.0); Neutrophils Absolute Auto 2.42 K/mm3 (1.70-7.20); Neutrophils Percent Auto 58.7 % (50.0-70.0); Platelet Count Result 164 K/mm3 (150-420); Red Blood Count 4.72 M/mm3 (4.70-6.10); Red Cell Distribution Width 13.7 % (11.6-14.4); White Blood Count 4.1 K/mm3 (4.8-10.8)
[2023-12-13 08:40] LABS: Alanine Aminotransferase 34 U/L (16-63); Albumin Level 3.6 g/dL (3.4-5.0); Alkaline Phosphatase 76 U/L (46-116); Anion Gap 9 mmol/L (4-12); Aspartate Amino Transferase 20 U/L (15-37); Bilirubin,Total 0.8 mg/dL (0.00-1.00); Blood Urea Nitrogen 18 mg/dL (7-18); Calcium 9.1 mg/dL (8.5-10.1); Carbon Dioxide 29 mmol/L (21-32); Chloride 105 mmol/L (98-108); Creatine Kinase 64 U/L (39-308); Estimated Glomerular Filt Rate 47; Ferritin 104 ng/mL (26-388); Glucose 120 mg/dL (70-99); Iron 115 ug/dL (65-175); Magnesium 1.9 mg/dL (1.8-2.4); Osmolality Calculated 298 mOsm/kg (285-295); Percent Iron Saturation 41 % (12-57); Phosphorus 3.3 mg/dL (2.6-4.7); Potassium 3.9 mmol/L (3.5-5.1); Sodium 143 mmol/L (136-145); Total Protein 6.8 g/dL (6.4-8.2); Uric Acid 5.7 mg/dL (3.5-7.2)
[2023-12-14 16:23] LABS: Parathyroid Intact 31 pg/mL (16-77)
[2023-12-15 00:37] LABS: Vitamin D 25 Hydroxy 38 ng/mL (30-100)
== END 2023-12-13 07:14 | disposition home or self-care (01) ==
LOC: CHSLAB 07:17
PROVIDERS: PCP Family Medicine
DX: N18.30 Chronic kidney disease, stage 3 unspecified (principal); E55.9 Vitamin D deficiency, unspecified; D64.9 Anemia, unspecified
CPT/HCPCS: 36415; 80053; 82306; 82550; 82728; 83540; 83550; 83735; 83970; 84100; 84550; 85025

== ENCOUNTER 2024-04-24 07:15 | Outpatient (CLI) | payer MEDICARE, SELFPAY ==
[2024-04-24 07:42] LABS: Basophils Absolute Auto 0.04 K/mm3 (0.00-0.10); Basophils Percent Auto 0.9 % (0.0-1.0); Eosinophils Absolute Auto 0.09 K/mm3 (0.02-0.50); Hematocrit 43.7 % (37.0-46.0); Hemoglobin 15.2 g/dL (12.4-15.3); Immature Granulocyte Absolute 0.01 K/mm3 (0.00-0.00); Immature Granulocyte Percent A 0.2 % (0.0-0.0); Lymphocytes Absolute Auto 1.57 K/mm3 (1.10-4.50); Lymphocytes Percent Auto 34.8 % (18.0-42.0); Mean Corpuscular HGB Conc 34.8 g/dL (32-36); Mean Corpuscular Hemoglobin 31.7 pg (27.0-31.0); Mean Corpuscular Volume 91.2 fL (78.0-102.0); Monocytes Absolute Auto 0.38 K/mm3 (0.10-0.90); Monocytes Percent Auto 8.4 % (2.0-11.0); Neutrophils Absolute Auto 2.42 K/mm3 (1.70-7.20); Neutrophils Percent Auto 53.7 % (50.0-70.0); Platelet Count Result 156 K/mm3 (150-420); Red Blood Count 4.79 M/mm3 (4.70-6.10); Red Cell Distribution Width 13.3 % (11.6-14.4); White Blood Count 4.5 K/mm3 (4.8-10.8)
[2024-04-24 16:52] LABS: Alanine Aminotransferase 40 U/L (16-63); Albumin Level 3.6 g/dL (3.4-5.0); Alkaline Phosphatase 90 U/L (46-116); Anion Gap 7 mmol/L (4-12); Aspartate Amino Transferase 14 U/L (15-37); Bilirubin,Total 0.7 mg/dL (0.00-1.00); Blood Urea Nitrogen 17 mg/dL (7-18); Carbon Dioxide 31 mmol/L (21-32); Chloride 104 mmol/L (98-108); Cholesterol 167 mg/dL (0-200); Estimated Glomerular Filt Rate 57; Glucose 114 mg/dL (70-99); HDL Direct 55 mg/dL (40-60); LDL Cholesterol Calculated 74 mg/dL (<130); Osmolality Calculated 296 mOsm/kg (285-295); Potassium 4.2 mmol/L (3.5-5.1); Sodium 142 mmol/L (136-145); Thyroid Stimulating Hormone 1.64 uIU/mL (0.36-3.74); Total Protein 7.2 g/dL (6.4-8.2); Triglycerides 191 mg/dL (0-150)
[2024-04-24 16:55] LABS: Creatinine Urine 168.61 mg/dL (40-278); MALB Creatinine Ratio 15.1 mg/g (0-30); Microalbumin Urine Random 25.5 mg/L
== END 2024-04-24 07:16 | disposition home or self-care (01) ==
LOC: CHSLAB 07:18
PROVIDERS: PCP Family Medicine; Visit Provider Family Medicine
DX: I10 Essential (primary) hypertension (principal); E78.2 Mixed hyperlipidemia
CPT/HCPCS: 36415; 80053; 80061; 82043; 84443; 85025

== ENCOUNTER 2024-08-28 07:01 | Outpatient (CLI) | payer MEDICARE, SELFPAY ==
[2024-08-28 07:28] LABS: Add Urine Microscopic? YES; Appearance Urine Clear (Clear); Bilirubin Urine Negative (Negative); Blood Urine Negative (Negative); Color Urine Yellow (Yellow); Glucose Urine UA Negative (Negative); Hematocrit 42.5 % (37.0-46.0); Hemoglobin 14.5 g/dL (12.4-15.3); Ketones Urine Negative (Negative); Leukocyte Esterase Ur Negative (Negative); Mean Corpuscular HGB Conc 34.1 g/dL (32-36); Mean Corpuscular Hemoglobin 31.1 pg (27.0-31.0); Mean Corpuscular Volume 91.2 fL (78.0-102.0); Mean Platelet Volume 10.3 fl (8.7-11.0); Nitrate Urine Negative (Negative); Platelet Count Result 154 K/mm3 (150-420); Protein Urine Trace (Negative); Red Blood Count 4.66 M/mm3 (4.70-6.10); Red Cell Distribution Width 13.6 % (11.6-14.4); Urobilinogen Urine 0.2 mg/dL (0.2-1.0); White Blood Count 4.6 K/mm3 (4.8-10.8); pH Urine 6.5 (5.0-8.0)
[2024-08-28 07:39] LABS: Bacteria Urine Rare /hpf; Other Sediment Urine Spermatazoa /hpf; RBC Urine None seen /hpf (0-2); WBC Urine None seen /hpf (0-3)
[2024-08-28 07:50] LABS: Creatinine Urine 213.37 mg/dL (40-278); Total Protein Urine Random 29.3 mg/dL (0.0-11.9); Ur Ttl Prot Creatinine Ratio 0.14 mg/mg (0-0.20)
[2024-08-28 08:15] LABS: Albumin Level 3.6 g/dL (3.4-5.0); Anion Gap 12 mmol/L (4-12); Blood Urea Nitrogen 15 mg/dL (7-18); Calcium 8.7 mg/dL (8.5-10.1); Carbon Dioxide 26 mmol/L (21-32); Chloride 104 mmol/L (98-108); Estimated Glomerular Filt Rate 52; Glucose 126 mg/dL (70-99); Osmolality Calculated 296 mOsm/kg (285-295); Phosphorus 2.9 mg/dL (2.6-4.7); Potassium 3.9 mmol/L (3.5-5.1); Sodium 142 mmol/L (136-145)
== END 2024-08-28 07:02 | disposition home or self-care (01) ==
LOC: CHSLAB 07:06
PROVIDERS: PCP Family Medicine
DX: N18.30 Chronic kidney disease, stage 3 unspecified (principal); I12.9 Hypertensive chronic kidney disease with stage 1 through stage 4 chronic kidney disease, or unspecified chronic kidney disease
CPT/HCPCS: 36415; 80069; 81001; 82570; 83970; 84156; 85027

== ENCOUNTER 2024-10-30 07:02 | Outpatient (CLI) | payer MEDICARE, SELFPAY ==
--- OUTSIDE RECORDS SUMMARY | 2024-10-30 07:06 | XMS_ITS | CONTINUITY OF CARE DOCUMENT ---
Author Name renee duran Address Unknown Organization [facility] Address [id number] [place] [address] [address] [place] [address] Phone [phone] Care Team Providers Care Practice Representative Name Role Phone Sanjeev MCELROY, Jermaine Unavailable [phone] GRACIE PEREZ MD Unavailable GRACIE PEREZ MD Unavailable [phone] PROBLEMS Condition Status Date Provider Notes HTN essential active Antwan Arcos MD BPH (benign prostatic hypertrophy) active Antwan Arcos MD HIV positive active Antwan Arcos MD Chest pain active Antwan Arcos MD FAMILY HISTORY OF HEART DISEASE completed - Jermaine Pace MD CAD - S/P CABG - MARTINEZ to LAD, GHAZAL to RCA, SVG to D1, SVG to OM3/2 active Jermaine Pace MD Hyperlipidemia active Jermaine Pace MD Cardiomyopathy - EF 40% echo 08/2021 active Jermaine Pace MD Cardiology examination active Ragini neri MILITARY ADMINISTRATIVE TECHNICIAN ENCOUNTERS Date Type Provider Location Encounter Diag nosis - In-person encounter Office Visit Jermaine Pace MD [facility] - In-person encounter Office Visit Jermaine Pace MD [facility] Cardiology examination - In-person encounter Office Visit Jermaine Pace MD [facility] - In-person encounter Office Visit Jermaine Pace MD [facility] - In-person encounter Office Visit Jermaine Pace MD [facility] Cardiomyopathy - EF 40% echo 08/2021 - In-person encounter Office Visit Jermaine Pace MD [facility] Cardiomyopathy - EF 40% echo 08/2021 - In-person encounter Office Visit Jermaine Pace MD [facility] Hyperlipidemia - In-person encounter Office Visit Jermaine Pace MD [facility] Cardiomyopathy - EF 40% echo 08/2021 - In-person encounter Office Visit Jermaine Pace MD [facility] Hyperlipidemia - In-person encounter Office Visit Jermaine Pace MD [facility] Cardiomyopathy - EF 40% echo 08/2021 - In-person encounter Office Visit Jermaine Pace MD [facility] - In-person encounter Office Visit Jermaine Pace MD [facility] FAMILY HISTORY OF HEART DISEASECAD - S/P CABG - MARTINEZ to LAD, GHAZAL to RCA, SVG to D1, SVG to OM3/2HyperlipidemiaCar diomyopathy - EF 40% echo 08/2021 - In-person encounter Office Visit Antwan Arcos MD [facility] HTN essentialBPH (benign prostatic hypertrophy)HIV positiveChest pain VITAL SIGNS Date Observation Value Provider Body Mass Index (Ratio) 30.34 kg/m2 Laura Pace MD blood pressure, diastolic 70 mm[Hg] Azucena Nolasco blood pressure, systolic 108 mm[Hg] Sandie Nolasco oxygen saturation, oximetry 97 % Lizy Nolasco pulse rate 62 /min Lizy [place] respiratory rate E&M 12 /min Lizy [place] weight E&M 230 [lb_av] [facility] [in_i] [facility] blood pressure, cuff size regular [facility] Body Mass Index (Ratio) 30.08 kg/m2 Laura Pace MD blood pressure, diastolic 71 mm[Hg] [facility], systolic 122 mm[Hg] Sandie [facility] saturation, oximetry 98 % [facility] pulse rate 57 /min [facility] respiratory rate E&M 12 /min [facility] weight E&M 228 [lb_av] [facility] height E&M 73 [in_i] [facility] blood pressure, cuff size regular Azucena [facility] Body Mass Index (Ratio) 29.95 kg/m2 Laura Pace MD blood pressure, diastolic 72 mm[Hg] Sarai nkLogic blood pressure, systolic 120 mm[Hg] Mariella kLogic blood pressure, cuff size regular Milton rret blood pressure, diastolic 72 mm[Hg] Milton rret blood pressure, systolic 120 mm[Hg] Jar ret pulse rate 55 /min Ricci oxygen saturation, oximetry 95 % Rcici respiratory rate E&M 12 /min Ricci weight E&M 227 [lb_av] Ricci y height E&M 73 [in_i] Ricci y Body Mass Index (Ratio) 29.81 kg/m2 Og dotson Nacht blood pressure, diastolic 74 mm[Hg] Ke rri Gruenenfelder blood pressure, systolic 115 mm[Hg] Ker ri Gruenenfelder blood pressure, cuff size large Ke rri Gruenenfelder oxygen saturation, oximetry 98 % Ashley Grtcnenfelder respiratory rate E&M 16 /min Ashley G ruenenfelder pulse rate 54 /min Ashley Grtcnenfe lder weight E&M 226 [lb_av] Ashley Gruenenfe lder height E&M 73 [in_i] Ashley Gruenenfe er Body Mass Index (Ratio) 30.87 kg/m2 Laura Pace MD blood pressure, diastolic 76 mm[Hg] Li nkLog blood pressure, systolic 126 mm[Hg] Mariella kLog blood pressure, diastolic 76 mm[Hg] La kal [place] blood pressure, systolic 126 mm[Hg] Damion helle [place] blood pressure, cuff size large La kal [place] oxygen saturation, oximetry 98 % Tanya Ojeda respiratory rate E&M 18 /min Patricia Ojeda pulse rate 63 /min Tanya moreno weight E&M 234 [lb_av] Tanya moreno height E&M 73 [in_i] Tanya moreno Body Mass Index (Ratio) 30.74 kg/m2 Antoine Kim oxygen saturation, oximetry 96 % Carmel Avina respiratory rate E&M 16 /min Carmel Avina blood pressure, diastolic 69 mm[Hg] Cy alexx Avina blood pressure, systolic 109 mm[Hg] Rama loreto Avina pulse rate 16 /min Carmel chakraborty blood pressure, cuff size regular Cy ntsusan Avina weight E&M 233 [lb_av] Carmel chakraborty height E&M 73 [in_i] Carmel chakraborty Body Mass Index (Ratio) 31.66 kg/m2 Laura Pace MD respiratory rate E&M 16 /min [facility] pulse rate 62 /min [facility] blood pressure, systolic 130 mm[Hg] Ton [facility] blood pressure, diastolic 70 mm[Hg] To [facility] oxygen saturation, oximetry 97 % [facility] blood pressure, resting Yes [facility] weight E&M 240 [lb_av] [facility] height E&M 73 [in_i] [facility] Body Mass Index (Ratio) 29.29 kg/m2 Laura Pace MD blood pressure, diastolic 70 mm[Hg] Da elgin [place] blood pressure, systolic 112 mm[Hg] Dac ia Ingrid oxygen saturation, oximetry 98 % Jennifer Ingrid respiratory rate E&M 16 /min Jennifer V oss pulse rate 65 /min Jennifer Ingrid weight E&M 222 [lb_av] Jennifer Ingrid height E&M 73 [in_i] Jennifer Ingrid Body Mass Index (Ratio) 30.47 kg/m2 Noemi servando Bui blood pressure, cuff size large Ke rri Katya blood pressure, diastolic 80 mm[Hg] Ke rri Maceldnathaniel blood pressure, systolic 110 mm[Hg] Rafaela Aldana oxygen saturation, oximetry 98 % Ashley Aldana respiratory rate E&M 18 /min Ashley champagne pulse rate 77 /min Ashley Farley er weight E&M 231 [lb_av] Ashley Farley er height E&M 73 [in_i] Ashley Farley er Body Mass Index (Ratio) 30.02 kg/m2 Laura Pace MD blood pressure, diastolic 77 mm[Hg] Tito Mora blood pressure, systolic 134 mm[Hg] Keesha Mora oxygen saturation, oximetry 98 % Baldomero Mora respiratory rate E&M 18 /min Nayeli Mora pulse rate 81 /min Baldomero Maguire saltyheladio weight E&M 227.6 [lb_av] Baldomero max height E&M 73 [in_i] Baldomero Maguire saltyheladio blood pressure, diastolic 76 mm[Hg] Tito Mora blood pressure, systolic 116 mm[Hg] Keesha Mora pulse rate 74 /min Baldomero preciado oxygen saturation, oximetry 99 % Baldomero Mora respiratory rate E&M 16 /min Nayeli Mora Body Mass Index (Ratio) 29.52 kg/m2 Monika Mora weight E&M 223.8 [lb_av] Baldomero max blood pressure, diastolic 80 mm[Hg] Flavio Pace MD blood pressure, systolic 136 mm[Hg] Melany Pace MD pulse rate 88 /min Jermaine Pace MD oxygen saturation, oximetry 99 % Jermaine Pace MD respiratory rate E&M 16 /min Vale Pace MD Body Mass Index (Ratio) 27.31 kg/m2 Laura Pace MD weight E&M 207 [lb_av] Jermaine Pace MD blood pressure, diastolic 100 mm[Hg] Us veronica Arcos MD blood pressure, systolic 142 mm[Hg] Jaylene Arcos MD pulse rate 70 /min Antwan Arcos MD oxygen saturation, oximetry 99 % Antwan Arcos MD respiratory rate E&M 16 /min Antwan hernández MD Body Mass Index (Ratio) 26.38 kg/m2 Pino Arcos MD weight E&M 200 [lb_av] Antwan Arcos MD height E&M 73 [in_i] Antwan Arcos MD ALLERGIES No Known Drug Allergies HISTORY OF MEDICATION USE Medication Status Instructions Dates Provider Indications Com ments vitamin B complex tablet extended release active 1 tablet by mouth once a day Ragini Loera MILITARY ADMINISTRATIVE TECHNICIAN lisinopril-hydro chlorothiazide 20-12.5 mg tablet active Take 1 tablet by mouth once a day Ashley Aldana Daily Fiber 0.52 gram capsule active Take 1 tablet once a day Carmel Avina ZINC CAPSULE active Take 1 tablet once a day Carmel Avina CRANBERRY CAPSULE active Take 1 tablet once a day Carmel Avina LIBIDO - MAX active once a day Ashley Aldana VITAMIN D TABLET active Take 1 once a day Ashley Aldana MULTIVITAMINS ORAL CAPSULE active 1 tablet once a day Ashley Aldana aspirin 81 mg tablet,delayed release (DR/EC) active 1 tablet by mouth once a day Ashley Aldana amlodipine 10 mg tablet active Take 1 once a day Ashley Aldana Tivicay 50 mg tablet active Take 1 once a day Ashley Aldana ASPIR-81 81 MG ORAL TABLET DELAYED RELEASE completed one tablet daily - Ivan Kyte Lipitor 40 mg tablet active 1 tablet once a day Ashleyemmanuel Alonzonathaniel Coreg 12.5 mg tablet active 1 tablet twice a day Yunior Elena RN Triumeq 600-50-300 mg tablet active Antwan Arcos MD quinapril-hydroc hlorothiazide 20-12.5 mg tablet completed - Ashley Aldana AMLODIPINE BESYLATE 10 MG ORAL TABLET completed ONE TAB. DAILY - Yunior Elena RN OMEPRAZOLE 40 MG ORAL CAPSULE DELAYED RELEASE completed - Ashley Aldana SOCIAL HISTORY Date Observation Value Provider personal history of marijuana use no Ragini Ventimiglia [facility] drug use no Ragini Ventimig sathish [facility] alcohol use, average drinks per day social Ragini Ventimiglia [facility] alcohol use yes Ragini Ventimig sathish [facility] smoking status Never smoker Ragini Ventim iglia [facility] personal history of marijuana use no Ragini Ventimiglia [facility] drug use no Ragini Ventimig sathish [facility] alcohol use, average drinks per day social Ragini Ventimiglia [facility] alcohol use yes Ragini Ventimig sathish [facility] smoking status Never smoker Ragini Ventim iglia [facility] smoking status Never smoker Jermaine chew MD social history E&M 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 Smoking History: Chuck gold has never smoked. 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 Smoking History: P atient has never smoked. 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 Smoking History: P atient has never smoked. 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 Smoking History: P atient has never smoked. 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 Smoking History: P atient has never smoked. 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 Smoking History: P atient has never smoked. 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 Smoking History: P atient has never smoked. Jermaine Pace MD social history reviewed E&M revi ewed - no changes required Jermaine Pace MD social history E&M Occupation: R etired psychologist P asif has never smoked. Smoking History: P asif has never smoked. 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 Smoking History: P asif has never smoked. Antwan Arcos MD FUNCTIONAL STATUS Date Observation Value Provider HRA, CV Assess/Plan, Angina (inactive) Management Plan continue current therapy Raginidomitila Weeksmiglia MILITARY ADMINISTRATIVE TECHNICIAN HRA, CV Assess/Plan, Angina (inactive) Management Plan continue current therapy Ragini BAEZAP HRA, CV Assess/Plan, Angina (inactive) Management Plan continue current therapy Jermaine Pace MD HRA, CV Assess/Plan, Angina (inactive) Management Plan continue current therapy Jermaine Pace MD HRA, CV Assess/Plan, Angina (inactive) Management Plan continue current therapy Jermaine Pace MD HRA, CV Assess/Plan, Angina (inactive) Management Plan continue current therapy Ivan Kim HRA, CV Assess/Plan, Angina (inactive) Management Plan continue current therapy Jermaine Pace MD HRA, CV Assess/Plan, Angina (inactive) Management Plan continue current therapy Jermaine Pace MD FAMILY HISTORY Family Member Condition Uncle Family History of Co ronary Artery Disease: Father Family History of Co ronary Artery Disease: INSURANCE PROVIDERS Payer name Policy type / Coverage type [place] [employer] party ID [employer] MEDICARE LAURA PPO Medicare [id number] ADVANCE DIRECTIVES Name Date DISCUSSED - NO DECISION MADE TREATMENT PLAN Date Name Performer [id number],C, M ost recent known LDL 71. He continues on Lipitor. We aim for an LDL <70. We will request his most recent labwork from your office. Jermaine Pace MD [id number],C, C hest pain free. Continues on ASA 81mg daily for life. Last stress test was in 2014 before CABG. As his HIV medications increase his cardiovascular risk, he would certainly benefit from a stress test after the next visit. Jermaine Pace MD [id number],C, B lood pressure control is satisfactory. Jermaine Pace MD [id number],S, N o recurrence. Jermaine Pace MD [id number],C, O n medications. Follows [facility] with Dr. Ramirez. Reports his most recent viral load was <20 copies. Jermaine Pace MD [id number],C, C linically stable. Previous echo showed EF 40%. He continues on Coreg. Jermaine Pace MD [id number],S, M ost recent LDL 71. He continues on Lipitor. We aim for an LDL <70. He is due to have repeat labs at [facility] next week. Jermaine Pace MD [id number],S, C linically stable. Echo today showed EF 40%. He continues on Coreg. Jermaine Pace MD [id number],S, C linically stable. Echo today shows EF 40%. He continues on Coreg. Jermaine Pace MD [id number],S, C hest pain free. Continues on ASA 81mg daily for life. Last stress test was in 2014 before CABG. Will repeat his stress test at the next visit and his HIV medications increase his cardiovascular risk. Jermaine Pace MD [id number],S, B lood pressure control is satisfactory. Jermaine Pace MD [id number],S, O n medications. Follows [facility]. Reports his most recent viral load was <20 copies. J[facility]aine Pace [facility] H is updated medication list for this problem includes: Lipitor 40 Mg Tablet (Atorvastatin) ..... 1 tablet once a day Cotulla Lucianaroger [facility] Cardiology:BP at goa l continue present medication regimen H is updated medication list for this problem includes: Lisinopril-hydrochlorothiazide 20-12.5 Mg Tablet (Lisinopril-hydrochlorothiazide) ..... Take 1 tablet by mouth once a day Aspirin 81 Mg Tablet,delayed Release (dr/ec) (Aspirin) ..... 1 tablet by mouth once a day Coreg 12.5 Mg Tablet (Carvedilol) ..... 1 tablet twice a day Amlodipine 10 Mg Tablet (Amlodipine) ..... Take 1 once a day [facility] Cardiology:EF of 45% unchanged m ild MR, mild to mod AR and mod TR c ontinue current medication regimen H is updated medication list for this problem includes: Lisinopril-hydrochlorothiazide 20-12.5 Mg Tablet (Lisinopril-hydrochlorothiazide) ..... Take 1 tablet by mouth once a day Aspirin 81 Mg Tablet,delayed Release (dr/ec) (Aspirin) ..... 1 tablet by mouth once a day Coreg 12.5 Mg Tablet (Carvedilol) ..... 1 tablet twice a day Amlodipine 10 Mg Tablet (Amlodipine) ..... Take 1 once a day [facility] Cardiology:no report s of chest pain or SOB r ecent PET/CT negative for ischemia W ill continue present medication regimen H is updated medication list for this problem includes: Lisinopril-hydrochlorothiazide 20-12.5 Mg Tablet (Lisinopril-hydrochlorothiazide) ..... Take 1 tablet by mouth once a day Aspirin 81 Mg Tablet,delayed Release (dr/ec) (Aspirin) ..... 1 tablet by mouth once a day Coreg 12.5 Mg Tablet (Carvedilol) ..... 1 tablet twice a day Amlodipine 10 Mg Tablet (Amlodipine) ..... Take 1 once a day [facility] Cardiology:no new SO B or decompensation w ill update echo c ontinue present medicatio regimen H is updated medication list for this problem includes: Lisinopril-hydrochlorothiazide 20-12.5 Mg Tablet (Lisinopril-hydrochlorothiazide) ..... Take 1 tablet by mouth once a day Aspirin 81 Mg Tablet,delayed Release (dr/ec) (Aspirin) ..... 1 tablet by mouth once a day Coreg 12.5 Mg Tablet (Carvedilol) ..... 1 tablet twice a day Amlodipine 10 Mg Tablet (Amlodipine) ..... Take 1 once a day [facility] Cardiology [facility] Cardiology:Will get recent lipid panel A djust meds based on numbers H is updated medication list for this problem includes: Lipitor 40 Mg Tablet (Atorvastatin) ..... 1 tablet once a day [facility] Cardiology:BP contro lled c pepe present medication regimen H is updated medication list for this problem includes: Lisinopril-hydrochlorothiazide 20-12.5 Mg Tablet (Lisinopril-hydrochlorothiazide) ..... Take 1 tablet by mouth once a day Aspirin 81 Mg Tablet,delayed Release (dr/ec) (Aspirin) ..... 1 tablet by mouth once a day Coreg 12.5 Mg Tablet (Carvedilol) ..... 1 tablet twice a day Amlodipine 10 Mg Tablet (Amlodipine) ..... Take 1 once a day [facility] Cardiology:Patient w ith history of CAD and CABG in 2016 C ontinued HFmeF despite revasularization H e remains on HIV antiviral therapy and last labs in 10/2023 showed elevated triglycerides of 458 and LDL of 84 H e had follow up labs with PCP and we will obtain R ecommend we do PET/CT stress to r/o new ischemia and update echo as well H is updated medication list for this problem includes: Lisinopril-hydrochlorothiazide 20-12.5 Mg Tablet (Lisinopril-hydrochlorothiazide) ..... Take 1 tablet by mouth once a day Aspirin 81 Mg Tablet,delayed Release (dr/ec) (Aspirin) ..... 1 tablet by mouth once a day Coreg 12.5 Mg Tablet (Carvedilol) ..... 1 tablet twice a day Amlodipine 10 Mg Tablet (Amlodipine) ..... Take 1 once a day Ragini Loera [facility] Cardiology: Follows [facility] with Dr. Ramirez. Most recent HIV viral load was 0. Jermaine Pace MD Cardiology: H is updated medication list for this problem includes: Lipitor 40 Mg Tablet (Atorvastatin) ..... 1 tablet once a day Jermaine Pace MD Cardiology:Blood pre ssure control is satisfactory. BP today: 120/72 P rior BP: 115/74 (07/23/2022) His updated medication list for this problem includes: Lisinopril-hydrochlorothiazide 20-12.5 Mg Tablet (Lisinopril-hydrochlorothiazide) ..... Take 1 tablet by mouth once a day Aspirin 81 Mg Tablet,delayed Release (dr/ec) (Aspirin) ..... 1 tablet by mouth once a day Coreg 12.5 Mg Tablet (Carvedilol) ..... 1 tablet twice a day Amlodipine 10 Mg Tablet (Amlodipine) ..... Take 1 once a day Jermaine Pace MD Cardiology: N o recurrence. Jermaine Pace MD Cardiology: C linically stable. Previous echo showed EF 40%. Jermaine Pace MD Cardiology: C hest pain free. Continues on ASA 81mg daily for life Jermaine Pace MD Cardiology: M ost recent known LDL 71. He continues on Lipitor. We aim for an LDL <70. We will request his most recent labwork from your office. Jermaine Pace MD Cardiology: C hest pain free. Continues on ASA 81mg daily for life. Last stress test was in 2014 before CABG. As his HIV medications increase his cardiovascular risk, he would certainly benefit from a stress test after the next visit. Jermaine Pace MD Cardiology: B lood pressure control is satisfactory. Jermaine Pace MD Cardiology: N o recurrence. Jermaine Pace MD Cardiology: O n medications. Follows [facility] with Dr. Ramirez. Reports his most recent viral load was <20 copies. Jermaine Pace MD Cardiology: C linically stable. Previous echo showed EF 40%. He continues on Coreg. Jermaine Pace MD Cardiology: M ost recent LDL 71. He continues on Lipitor. We aim for an LDL <70. He is due to have repeat labs at [facility] next week. Jermaine Pace MD Cardiology: C linically stable. Echo today showed EF 40%. He continues on Coreg. Jermaine Pace MD Cardiology: C linically stable. Echo today shows EF 40%. He continues on Coreg. Jermaine Pace MD Cardiology: C hest pain free. Continues on ASA 81mg daily for life. Last stress test was in 2014 before CABG. Will repeat his stress test at the next visit and his HIV medications increase his cardiovascular risk. Jermaine Pace MD Cardiology: B lood pressure control is satisfactory. Jermaine Pace MD Cardiology: O n medications. Follows [facility]. Reports his most recent viral load was <20 copies. Jermaine Pace MD Cardiology follow up :Blood pressure control is satisfactory. Ivan Kim Cardiology follow up :On medications. Follows [facility]. Reports his viral load is 0. Ivan Kim Cardiology follow up :Most recent LDL 54. He continues on Lipitor. Will request recent labs. We aim for an LDL <70. Ivan Kyte Cardiology follow up :Chest pain free. Continues on ASA 81mg daily for life. Ivan Kyte Cardiology follow up :Clinically stable. Will repeat echo. He continues on Coreg. Ivan Kim Cardiology:On medica tions. Follows [facility]. His viral load is low and being monitored. Medications recently changed. Jermaine Pace MD Cardiology:Most rece nt LDL 54. He continues on Lipitor. Jermaine Pace MD Cardiology:Blood pressure contro l is satisfactory. Jermaine Pace MD Cardiology:Chest lindsey n free. Continues on ASA 81mg daily for life. Jermaine Pace MD Cardiology:Clinically stable. Ec ho results pending. Jermaine Pace MD Cardiology follow up :On medications. Follows [facility]. His viral load is undetectable. Jermaine Pace MD Cardiology follow up :Continues on Atorvastatin 10mg. Jermaine Pace MD Cardiology follow up :Most recent EF 40%. He continues on Coreg. He will undergo an echocardiogram before his next visit. Jermaine Pace MD Cardiology follow up :Blood pressure control is satisfactory. Jermaine Pace MD Cardiology follow up :Chest pain free. Continues on ASA 81mg daily for life. Jermaine Pace MD Cardiology Follow up :Remains asymptomatic. Effort tolerance remains stable. Will recheck echo. Jermaine Pace MD Cardiology Follow up :On triple therapy. Follows ID at [facility]. His viral load was negative and CD 4 was greater than 500. Jermaine Pace MD Cardiology Follow up :Last lipid panel in January was satisfactory with LDL of 55 Jermaine Pace MD Cardiology Follow up :Blood pressure control is satisfactory. Amlodipine has been resumed due to elevated blood pressure and he is now on Coreg, quinapril, HCTZ, and amlodipine. Jermaine Pace MD Cardiology Follow up :Chest pain free. Effort tolerance stable. Continues on ASA 81mg, quinapril, and amlodipine. Jermaine Pace MD Cardiology-//:No recurrence. Melany Pace MD Cardiology-//:Clinically compens ated. Jermaine Pace MD Cardiology-//:Continues on Lipit or. Jermaine Pace MD Cardiology-//:Blood pressure control is satisfactory. Jermaine Pace MD Cardiology-//:Chest pain free. Continues on Aspirin. Effort tolerance is stable. No shortness of breath or limitation. He is able to walk 2 miles. His echo shows an EF of 30%. Will increase his Coreg to 12.5mg twice daily. He will cotninue on Quinapril HCTZ and discontinue his Amlodipine. Jermaine Pace MD Cardiology:follows i nfectious disease at [facility]. He continues on antiretroviral therapy. Jermaine Pace MD Cardiology:Related t o CAD, will arrange an echo post revascularization at his next visit. Jermaine Pace MD Cardiology:Chest lindsey n free. Effort tolerance has significantly improved. The sternal incision, radial incision are well healed. He continues on aspirin once a day. Jermaine aPce MD Cardiology:Blood pre ssure control is satisfactory. He is on quinapril hctc 20/12.5 once a day and amlodapine once a day. Jermaine Pace MD Cardiology:Will chec k an echocardiogram at his next visit. Continues on coreg and MAURILIO inhibitor. Jermaine Pace MD Cardiology:On Triumeq once a day . Jermaine Pace MD Cardiology:On lipitor. Jermaine Pace MD Cardiology:Chest lindsey n free. Incision site has healed. Ambulant and able to walk half a mile. Will arrange for him to have cardiac rehab. He continues on aspirin 81 mg daily. Jermaine Pace MD Cardiology:On amlodi pine, quinapril HCTZ, and coreg. Jermaine Pace MD Cardiology New Patient:BP 142/10 0 Antwan Arcos MD Date Name myocardial blood dalia w (PET) Stress Cardiac PET-C T Complete Echo Carotid Duplex Bilat eral Complete Echo Complete Echo Complete Echo Complete Echo Complete Echo LIPID PANEL Complete Echo STR - Nuclear HISTORY OF PROCEDURES Procedure Date Procedure Name Provider Procedure Notes S tatus EKG Jermaine Pace MD complet ed EKG Jermaine Pace MD [ - aleshia] APPROVED [ 08/07/2024 - vonda] completed EKG Jermaine Pace MD complet ed EKG Jermaine Pace MD complet ed EKG Jermaine Pace MD complet ed EKG Jermaine Pace MD complet ed EKG Jermaine Pace MD complet ed EKG Jermaine Pace MD complet ed EKG Jermaine Pace MD complet ed SNOMED-CT: 662703438405924 Current Medications Documented Jermaine Pace MD completed SNOMED-CT: 66205691 Physical Exam, Performed: Pulse Exam of Foot Jermaine Pace MD completed BILL Pace MD complet ed SNOMED-CT: 695450586180779 Current Medications Documented Jermaine Pace MD completed SNOMED-CT: 712184159596768 Current Medications Documented Jermaine Pace MD completed SNOMED-CT: 466433834462686 Current Medications Documented Jermaine Pace MD completed SNOMED-CT: 226762246 Smoking Cessation Counseling Jermaine Pace MD completed SNOMED-CT: 75700520 Physical Exam, Performed: Pulse Exam of Foot Jermaine Pace MD completed SNOMED-CT: [id number] Current Medications Documented Antwan Arcos MD completed SNOMED-CT: 56750327 Physical Exam, Performed: Pulse Exam of Foot Antwan Arcos MD completed
--- OUTSIDE RECORDS SUMMARY | 2024-10-30 07:06 | XMS_ITS | Referral Summary ---
Author Organization [facility] Address [address] [place] [address] Care Team Providers Care Life Agent Name Role Phone William Vicente MD Primary Care Provide r Allergies No known active allergies Medications aspirin 81 mg tablet daily. 6 Active atorvastatin (LIPITOR) 40 mg tablet 8 Active carvedilol (COREG) 12.5 mg tablet 8 Active amLODIPine (NORVASC) 10 mg tablet Take 1 tablet (10 mg total) by mouth daily 9 Active cranberry 405 mg capsule CRANBERRY CAPSULE 0 Active zinc gluconate-zinc picolinate 30 mg capsule ZINC CAPSULE 0 Active magnesium citrate 100 mg tablet Take 500 % by mouth Active cyanocobalamin (Vitamin B-12) 500 mcg tabletIndicati ons:Prevention of Vitamin B12 Deficiency Take 1 tablet (500 mcg total) by mouth daily Active ergocalciferol , vitamin D2, 10 mcg (400 unit) tablet Take by mouth Act gladis cranberry 400 mg capsule CRANBERRY CAPSULE 0 Active multivitamin capsule MULTIVITAMINS ORAL CAPSULE 7 Active cholecalcifero l (VITAMIN D-3) 400 unit capsule VITAMIN D TABLET 7 Active zinc acetate 25 mg (zinc) capsule ZINC CAPSULE 0 Active lisinopril-hyd roCHLOROthiazi de (ZESTORETIC) 20-12.5 mg per tablet Take 1 tablet by mouth daily 0 Active Tivicay 50 mg tablet TAKE 1 TABLET BY MOUTH 1 TIME A DAY 90 tablet 2 4 Active Descovy 200-25 mg tablet TAKE 1 TABLET BY MOUTH 1 TIME A DAY 90 tablet 2 5 Active Active Problems Problem Noted Date Diagnosed Date 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 Currently on medication 2. Continue Lipitor and ASA 3. Checked lipids 4. Advised low fat diet and exercise 5. Advised maintenance of healthy weight 6. Advised good BP control Assessment & Plan (08/29/2021 2:11 PM CHIEF OPHTHALMIC TECHNICIAN): 1. Currently on medication 2. Continue Lipitor per cardiology 3. Checked lipids 4. Advised low fat diet and exercise 5. Advised continued smoking cessation 6. Advised good BP control History of coronary artery bypass surgery 2015 Benign prostatic hyperplasia 08/05/2015 Gastroesophageal reflux disease 05/13/2015 High risk medication use 01/02/2013 Hypertension 08/05/2012 Overview (02/28/2023): Managed on medications Follows with cardiology History of CABG Non-smoker BMI 29 BP today is 93/55 Scr 1.37 in 08/2022 Assessment & Plan (02/28/2023 5:20 PM CDT): 1. Well controlled 2. Continue Norvasc, Coreg, and Lisinopril/HCTZ 3. Checked CMP and UA to assess renal function and proteinuria 4. Discussed (-) effects of alcohol on BP 5. Advised continued follow up with PMD and cardiology Assessment & Plan (08/29/2021 2:14 PM CHIEF OPHTHALMIC TECHNICIAN): 1. Well controlled 2. Continue Norvasc, Coreg and Quinapril/HCTZ 3. Checked CMP and UA to assess renal function and proteinuria 4. Discussed (-) effects of alcohol on BP 5. Advised continued smoking cessation 6. Advised continued follow up with cardiology Human immunodeficiency virus (HIV) infection 10/2011 Overview (11/07/2023): Diagnosed in 2011 Genotype:T69T/A, V118I, M36I/M, L63P, & V77I. HLA B5701 (-) G6PD Normal Date: 2011 CMV IgG Positive Date: 2012 Toxo IgG Negative Date: 2014 Hepatitis B status: Immune Date: 2011 Hepatitis A: Non immune Date: dose #1 in 01/2015 HCV AB (-) 08/2022 Tspot (-) 08/2022 Previously on Truvada plus Tivicay with labs from February 2019 noting CD4 of 657 (36%) with a viral load of less than 20 copies. Discussed change to Descovy/Tivicay versus Biktarvy, but repored having 6 month supply of medications at home and did not want to waste them. However in April 2019, the patient called requesting transition to Descovy plus Tivicay change was made. The patient's most recent labs from February 2023 noted a viral load of less than 20 copies. Previous labs from August 2022 noted a CD4 of 767 (52%) with a viral load of less than 20 copies. Labs from February 2022 noted a CD4 of 644 (42%) with a viral load of less than 20 copies. Labs from August 2021 noted a CD4 of 701 (46%) with a viral load of less than 20 copies. The patient has consistently had strong immune system and suppressed virus. Assessment & Plan (11/07/2023 3:20 PM CDT): 1. Continue Descovy plus Tivicay 2. Advised 100% adherence 3. Checked labs to assess for effectiveness and toxicity. Annual labs checked 4. Reminded of undetectable = untransmittable 5. Reminded that condoms are effective barrier against STDS Assessment & Plan (02/28/2023 5:22 PM CDT): 1. Continue Descovy plus Tivicay 2. Advised 100% adherence 3. Checked labs to assess for effectiveness and toxicity 4. Reminded undetectable = untransmittable 5. Reminded that condoms are effective barrier against STDS 6. Advised to monitor site of tick for target-like rash. Would provide Doxycycline if present. Assessment & Plan (08/31/2022 3:51 PM CHIEF OPHTHALMIC TECHNICIAN): 1. Continue Descovy plus Tivicay 2. Advised 100% adherence 3. Checked labs to assess for effectiveness and toxicity. Annual labs checked 4. Aware of undetectable = untransmittable 5. Aware that condoms are effective barrier against STDS 6. Scr slightly elevated at last visit. Rechecked. Descovy is still safe with CrCl 60. Assessment & Plan (02/28/2022 2:24 PM CDT): 1. Continue Descovy plus Tivicay 2. Advised 100% adherence 3. Checked labs to assess for effectiveness and toxicity 4. Discussed undetectable = untransmittable 5. Reminded that condoms are effective barrier against STDS 6. Completed Moderna. COVID vaccine and booster Assessment & Plan (08/29/2021 2:08 PM CHIEF OPHTHALMIC TECHNICIAN): 1. Continue Descovy plus Tivicay 2. Advised 100% adherence 3. Checked labs to assess for effectiveness and toxicity. Annual labs checked 4. Discussed undetectable = untransmittable 5. Reminded that condoms are effective barrier against STDS 6. Completed Moderna COVID vaccine series and booster 7. Reports receiving Flu vaccine in Fall 2020 Assessment & Plan (03/02/2021 12:59 PM CDT): 1. Continue Descovy plus Tivicay 2. Advised 100% adherence 3. Checked labs to assess for effectiveness and toxicity 4. Discussed undetectable = untransmittable 5. Reminded that condoms are effective barrier against STDS Assessment & Plan (02/26/2020 4:17 PM CDT): 1. Continue Descovy plus Tivicay 2. Advised 100% adherence 3. Checked labs to assess for effectiveness and toxicity 4. Discussed undetectable = untransmittable 5. Reminded that condoms are effective barrier against STDS 6. Discussed life expectancy of persons living with HIV along with HIV dementia. Reassured that he is doing very well in terms of his HIV infection. Assessment & Plan (09/04/2019 1:48 PM CHIEF OPHTHALMIC TECHNICIAN): 1. Continue Descovy plus Tivicay 2. Advised 100% adherence 3. Checked labs to assess for effectiveness and toxicity. Annual labs sent 4. Discussed undetectable = untransmittable 5. Reminded that condoms are effective barrier against STDS Assessment & Plan (03/14/2019 1:30 PM CDT): 1. Continue Truvada plus Tivicay 2. Advised 100% adherence 3. Checked labs to assess for effectiveness and toxicity 4. Discussed undetectable = untransmittable 5. Reminded that condoms are effective barrier against STDS Assessment & Plan (09/04/2018 6:28 PM CHIEF OPHTHALMIC TECHNICIAN): 1. Continue Truvada plus Tivicay. 2. Advised 100% adherence 3. Checked labs to assess for effectiveness and toxicity. Also checked annual screening labs. 4. Discussed undetectable = untransmittable 5. Reminded that condoms are effective barrier against STDS. Denies sexual activity. Immunizations Immunization Administration Dates Next Due Hep A, Adult 11/04/2015,01/28/2015,01/02/2013 Hep A, Unspecified 11/04/2015,01/28/2015, 013 Influenza, Quadrivalent, Spl it, Intramuscular 06/03/2017 Influenza, Quadrivalent, Spl it, Preservative Free, Intramuscular 07/07/2019,05/10/2018 Influenza, Trivalent, IM (MDV) 4,06/13/2013,06/27/2012,06/11 Influenza, Trivalent, Preser vative Free, Intramuscular 07/20/2016,05/13/2015 Moderna SARS-CoV-2 Monovalen t Vaccination (12+ YRS) 06/11/2021,11/01/2020,10/14/2020 Pneumococcal Conjugate PCV 13 08/02/2014, 014 Pneumococcal Polysaccharide PPV23 11/13/2013, Tdap 12/22/2011 Social History Tobacco Use Types Packs/Day Years Used Date Smoking Tobacco: Never Smokeless Tobacco: Never Tobacco Cessation:Counseling Given: Not Answered PHQ-2 Answer Date Recorded PHQ-2 Total Score (If total score is 3 or more points, staff should administer the PHQ-9) 0 02/14/2020 Sex and Gender Information Value Date Recorded Sex Assigned at Male 03/14/2019 1:20 PM CDT Legal Sex Male 9:26 PM CHIEF OPHTHALMIC TECHNICIAN Gender Identity Male 03/14/2019 1:20 PM CDT Sexual Orientation Jiang 03/14/2019 1: 20 PM CDT Last Filed Vital Signs Vital Sign Reading Time Taken Comments Blood Pressure 104/63 05/08/2024 10:06 AM CDT Pulse 72 05/08/2024 10:06 AM CDT Temperature 36.7 C (98 F) 11/01/2023 9:41 AM CDT Respiratory Rate 18 05/08/2024 10:0 6 AM CDT Oxygen Saturation 97% 05/08/2024 10: 06 AM CDT Inhaled Oxygen Concentration - - Weight 102.5 kg (225 lb 14.4 oz) 2023 10:06 AM CDT Height 185.4 cm (6' 0.99 ) 11/01/2023 9:41 AM CD T Body Mass Index 29.81 11/01/2023 9:41 AM CDT Plan of Treatment Not on file Procedures Procedure Name Priority Date/Time Associated Diagnosis Comments HEPATITIS C ANTIBODY Routine 11/01/2023 10:16 AM CDT Symptomatic HIV infection (HCC) Human immunodeficiency virus (HIV) disease (HCC) HEMOGLOBIN A1C Routine 11/01/2023 10:16 AM CDT Symptomatic HIV infection (HCC) Human immunodeficiency virus (HIV) disease (HCC) Other press tender long goods (current) drug therapy LIPID PANEL Routine 11/01/2023 10:16 AM CDT Symptomatic HIV infection (HCC) Human immunodeficiency virus (HIV) disease (HCC) T-SPOT.TB Routine 11/01/2023 10:16 AM CDT Symptomatic HIV infection (HCC) Human immunodeficiency virus (HIV) disease (HCC) RPR Routine 11/01/2023 10:16 AM CDT Symptomatic HIV infection (HCC) Human immunodeficiency virus (HIV) disease (HCC) URINALYSIS AND REFLEX TO MICROSCOPIC AND CULTURE Routine 08/24/2022 10:56 AM CHIEF OPHTHALMIC TECHNICIAN Symptomatic HIV infection (HCC) from Last 3 Months or Most Recently Relevant to Health Maintenance Results * T-SPOT.TB Blood (11/01/2023 10:16 AM CDT) T-SPOT.TB Negative SeeBelow Comment: Normal Value: Negative A negative test result does not exclude the possibility of exposure to or infection with Mycobacterium tuberculosis (M. tuberculosis). Patients with recent exposure to TB infected individuals exhibiting a negative T-SPOT.TB result should be considered for retesting within 6 weeks or if other relevant clinical symptoms indicate. Results from T-SPOT.TB testing must be used in conjunction with each individual's epidemiological history, current medical status, and results of other diagnostic evaluations. The T-SPOT.TB test is qualitative and results are reported as positive, borderline or negative, given that the test controls perform as expected. In line with the Centers for Disease Control and Prevention's 2010 recommendation to report quantitative measurements alongside the qualitative result, the laboratory provides spot counts for informational purposes only. The T-SPOT.TB test should not be interpreted as a quantitative test. T-SPOT.TB Panel A Spot Count 0 [facility] T-SPOT.TB Panel B Spot Count 0 [facility] T-SPOT.TB Negative Control Passed [facility] T-SPOT.TB Positive Control Passed [facility] Comment: Test Performed at: [facility] [address] [place] [id number] MINI GEORGE,PHD Blood 11/01/2023 10:1 6 AM CDT 11/01/2023 12:21 PM CDT us Dianne Santizo NP LAB MICROBIOLOGY - GENERAL JEFFREY JOYCE Final Result [facility] Department [place] [address] * Hepatitis C antibody Blood (11/01/2023 10:16 AM CDT) Pathologist [facility] Hep C Ab Nonreactive Nonreactive Comment:Antibodies to HCV no t detected. Does NOT exclude the possibility of recent exposure to HCV. Current interpretive data was last revised on 22 Blood 11/01/2023 10:1 6 AM CDT 11/01/2023 12:21 PM CDT Dianne Santizo PUBLIC POLICY COORDINATOR LAB MICROBIOLOGY - GENERAL ORDE RABLES Final Result Performing Organization Address [facility] de Phone Number [facility] [place] [address] * RPR Blood (11/01/2023 10:16 AM CDT) RPR Nonreactive Nonreactive Blood 11/01/2023 10:1 6 AM CDT 11/01/2023 12:21 PM CDT Result [facility] Dianne Santizo PUBLIC POLICY COORDINATOR LAB MICROBIOLOGY - GENERAL ORDE RABLES Final Result Performing Organization Address [facility] de Phone Number [facility] [place] [address] * (ABNORMAL) Hemoglobin A1c (11/01/2023 10:16 AM CDT) Hgb A1C 5.8(H) 4.0 - 5.6 % Estimated Average Glucose 120 mg/dL [facility] Comment: The ADA recommends reporting an estimated Average Glucose (eAG) with all Hemoglobin A1c results using the equation derived from a study of 507 normal and diabetic adults. Minority populations were underrepresented and children were not included. (Diabetes Care 2020; 43(S1): S66-S76). The eAG is not equivalent to a fasting glucose. Blood 11/01/2023 10:1 6 AM CDT 11/01/2023 12:21 PM CDT Result [facility] Dianne Santizo PUBLIC POLICY COORDINATOR LAB BLOOD ORDERABLES Final Resu lt Performing Organization Address [facility] Co de Phone Number [facility] [place] [address] * (ABNORMAL) Lipid panel (11/01/2023 10:16 AM CDT) Cholesterol 192 30 - 199 mg/dL Comment: Interpretive Data Ages < or = 19 years Acceptable: <170 mg/dL Borderline high: 170-199 mg/dL High: >or= 200 mg/dL Ages > or = 20 years Desirable: <200 mg/dL Borderline high: 200-239 mg/dL High: >or= 240 mg/dL Literature References: 1. Expert Panel on Integrated Guidelines for Cardiovascular Health and Risk Reduction in Children and Adolescents. Pediatrics 2011;128:S213 2. NCEP Expert Panel. Circulation 2004;110:227 Current Interpretive Data was last revised on 2018. Triglycerides 458(H) <=149 mg/dL [facility] Comment: Interpretive Data Ages < or = 9 years Acceptable: <75 mg/dL Borderline high: 75-99 mg/dL High: >or= 100 mg/dL Ages 10 to 20 years Acceptable: <90 mg/dL Borderline high: 90-129 mg/dL High: >or= 130 mg/dL Ages > or = 20 years Desirable: <150 mg/dL Borderline high: 150-199 mg/dL High: 200-499 mg/dL Very high: >or= 499 mg/dL Literature References: 1. Expert Panel on Integrated Guidelines for Cardiovascular Health and Risk Reduction in Children and Adolescents. Pediatrics 2011;128:S213 2. NCEP Expert Panel. Circulation 2004;110:227 Current Interpretive Data was last revised on 2018. HDL 48 >=40 mg/dL [facility] Comment: Interpretive Data Ages < or = 19 years Acceptable: >45 mg/dL Borderline low: 40-45 mg/dL Low: <40 mg/dL Ages > or = 20 years Desirable: >or= 60 mg/dL Low: <40 mg/dL Literature References: 1. Expert Panel on Integrated Guidelines for Cardiovascular Health and Risk Reduction in Children and Adolescents. Pediatrics 2011;128:S213 2. NCEP Expert Panel. Circulation 2004;110:227 Current Interpretive Data was last revised on 2018. LDL, calculated See Comment <=129 [facility] Comment: Unable to calculate LDL due to elevated triglyceride. Interpretive Data Ages < or = 19 years Acceptable: <110 mg/dL Borderline high: 110-129 mg/dL High: >or= 130 mg/dL Ages > or = 20 years Optimal: <100 mg/dL Near optimal: 100-129 mg/dL Borderline high: 130-159 mg/dL High: >160 mg/dL Literature References: 1. Expert Panel on Integrated Guidelines for Cardiovascular Health and Risk Reduction in Children and Adolescents. Pediatrics 2011;128:S213 2. NCEP Expert Panel. Circulation 2004;110:227 Current Interpretive Data was last revised on 2018. Non-HDL Cholesterol 144 mg/dL [facility] Comment: Interpretive Data Ages < or = 19 years Acceptable: <120 mg/dL Borderline high: 120-144 mg/dL High: >145 mg/dL Ages > or = 20 years When triglycerides are >200 mg/dL, Non-HDL cholesterol is a secondary target of therapy with treatment goals that are 30 mg/dL greater than the LDL cholesterol target. Literature References: 1. Expert Panel on Integrated Guidelines for Cardiovascular Health and Risk Reduction in Children and Adolescents. Pediatrics 2011;128:S213 2. NCEP Expert Panel. Circulation 2004;110:227 Current Interpretive Data was last revised on 2018. Chol/HDL ratio 4 [facility] Blood 11/01/2023 10:1 6 AM CDT 11/01/2023 12:21 PM CDT us Dianne Santizo NP LAB BLOOD ORDERABLES Final Resu lt [facility] Department [place] [address] * Urinalysis reflex to microscopic and culture Urine (08/24/2022 10:56 AM CHIEF OPHTHALMIC TECHNICIAN) Color, ur Yellow Yellow [facility] Clarity, ur Clear Clear [facility] Specific gravity, ur 1.022 1.003 - 1.030 [facility] pH, urine 6.0 [facility] Protein, ur ql Trace Negative [facility] Glucose, ur ql Negative Negative [facility] Ketones, ur Negative Negative [facility] Bilirubin, ur Negative Negative [facility] Blood, ur Negative Negative [facility] Urobilinogen, ur <2.0 <2.0 mg/dL [facility] Nitrite, ur Negative Negative [facility] Leukocyte esterase, ur Negative Negative [facility] UA reflex comment Reflex conditions for microscopic UA and culture not met. [facility] Urine 08/24/2022 10:5 6 AM CHIEF OPHTHALMIC TECHNICIAN 08/24/2022 4:00 PM CHIEF OPHTHALMIC TECHNICIAN Narrative [facility] - 08/24/2022 4:29 PM CHIEF OPHTHALMIC TECHNICIAN Urine pH is affected by diet, medications, systemic acid-base disturbances, and renal tubular function. pH may affect urinary stone formation. For example, urine pH below 6.0 may help reduce the tendency for calcium phosphate stones and pH greater than 6.0 may reduce the tendency for uric acid stone formation. Source: [employer]. Last revised 08-26-2017 us Dianne Santizo NP LAB MICROBIOLOGY - GENERAL JEFFREY JOYCE Final Result [facility] Department [place] [address] from Last 3 Months or Most Recently Relevant to Health Maintenance Insurance FORMERLY [facility] MEDICARE [facility] MEDICARE Address: [facility] [id number] [place] [address] MEDICARE MEDICARE SOLUTIONS T MEDICARE [facility] MEDICARE Address: [address] [place] [address] Care Teams Life Agent Relationship Specialty Start Date End Date William Vicente MD [address] [place], [place] [id number] PCP - General 01/18/17
--- OUTSIDE RECORDS SUMMARY | 2024-10-30 07:06 | XMS_ITS | Clinical Summary ---
Author Organization [facility] Address [address] [place] [address] Care Team Providers Care User Experience Analyst Name Role Phone William Vicente MD Primary [...] Diagnosed Date Atherosclerotic heart diseas e of [place] coronary artery without angina pectoris 10/08/2015 Cardiomyopathy, [...] control Assessment & Plan (08/29/2021 2:11 PM MASSAGE OPERATOR): 1. Currently on medication 2. Continue Lipitor [...] cardiology Assessment & Plan (08/29/2021 2:14 PM MASSAGE OPERATOR): 1. Well controlled 2. Continue Norvasc, Coreg [...] present. Assessment & Plan (08/31/2022 3:51 PM MASSAGE OPERATOR): 1. Continue Descovy plus Tivicay 2. Advised [...] booster Assessment & Plan (08/29/2021 2:08 PM MASSAGE OPERATOR): 1. Continue Descovy plus Tivicay 2. Advised [...] infection. Assessment & Plan (09/04/2019 1:48 PM MASSAGE OPERATOR): 1. Continue Descovy plus Tivicay 2. Advised [...] STDS Assessment & Plan (09/04/2018 6:28 PM MASSAGE OPERATOR): 1. Continue Truvada plus Tivicay. 2. Advised [...] 014 Pneumococcal Polysaccharide PPV23 11/13/2013, Tdap 12/22/2011 Family History Medical History Relation Name Comments Coronary artery disease Father CAD (coronary artery disease) - (Added by TW Conv) Heart attack Other Family history of myocardial infarction - Relation: Uncle (Added by TW Conv) Lung cancer Other Carcinoma Of Th e Lung - (Added by TW Conv) Relation Name Status Comments Father Other Social History Tobacco Use Types Packs/Day Years Used Date Smoking Tobacco: Never Smokeless Tobacco: Never Tobacco Cessation:Counseling Given: Not Answered PHQ-2 Answer Date Recorded PHQ-2 Total Score (If total score is 3 or more points, staff should administer the PHQ-9) 0 02/14/2020 Sex and Gender Information Value Date Recorded Sex Assigned at Male 03/14/2019 1:20 PM CDT Legal Sex Male 9:26 PM MASSAGE OPERATOR Gender Identity Male 03/14/2019 1:20 PM CDT Sexual Orientation Jiang 03/14/2019 1: 20 PM CDT Obstetrics History Last Filed Vital Signs Vital Sign Reading [...] 11/01/2023 9:41 AM CDT Plan of Treatment Health Maintenance Due Date Last Done Comments Colon Cancer Screening-Colonoscopy 1950 Fall Risk Assessment 1950 HLA B 5701 Typing 1950 HIV+ Chlamydia and Gonorrhea Screening (Rectal) 01/17/1963 HIV+ Chlamydia and Gonorrhea Screening (Throat) 01/17/1965 G6PD 01/17/1970 Hepatitis B Screening 01/17/1970 Zoster Vaccine (1 of 2) 01/17/1971 Osteoporosis Screening-Bone Density Scan 01/17/2002 Hepatitis B Vaccines (1 of 3 - Risk 3-dose series) 2012 Well Visit 65+ 01/17/2017 Pneumococcal vaccine 65+ (4 of 4 - PCV20 or PCV21) 08/02/2019 08/02/2014, 11/13/2013, 11/13/2013, Additional history exists Depression Screening 02/13/2021 02/14/2020 DTaP/Tdap/Td Vaccine (2 - Td or Tdap) 12/21/2021 12/22/2011 Proteinuria screening Urinalysis (UA) 08/24/2023 08/24/2022, 08/25/2021, 08/26/2020, Additional history exists Covid-19 Vaccine (2023-2 5 season) 2024 06/11/2021, 11/01/2020, 10/14/2020 Influenza Vaccine (#1) 2024 9, 05/10/2018, 06/03/2017, Additional history exists Hemoglobin A1C 10/31/2024 11/01/2023, 04/2023, 08/25/2021, Additional history exists Hepatitis C Screening 10/31/2024 11/01/2023 , 08/24/2022, 08/25/2021, Additional history exists Lipid Panel 10/31/2024 11/01/2023, 07/1 , 08/25/2021, Additional history exists RPR Screening 10/31/2024 11/01/2023, 04/2023, 08/25/2021, Additional history exists T Spot (quantiferon gold) 10/31/20242023, 08/24/2022, 08/25/2021, Additional history exists HIV + Chlamydia and Gonorrhe a Screening (Urine) 11/01/2024 11/02/2023 Hepatitis A Vaccines Completed 11/04/2015, 11/04/2015, 01/28/2015, Additional history exists Procedures Procedure Name Priority Date/Time Associated Diagnosis Comments HEPATITIS C ANTIBODY Routine 11/01/2023 10:16 AM CDT Symptomatic HIV infection (HCC) Human immunodeficiency virus (HIV) disease (HCC) HEMOGLOBIN A1C Routine 11/01/2023 10:16 AM CDT Symptomatic HIV infection (HCC) Human immunodeficiency virus (HIV) disease (HCC) Other chcf (current) drug therapy LIPID PANEL Routine 11/01/2023 10:16 AM CDT Symptomatic HIV infection (HCC) Human immunodeficiency virus (HIV) disease (HCC) T-SPOT.TB Routine 11/01/2023 10:16 AM CDT Symptomatic HIV infection (HCC) Human immunodeficiency virus (HIV) disease (HCC) RPR Routine 11/01/2023 10:16 AM CDT Symptomatic HIV infection (HCC) Human immunodeficiency virus (HIV) disease (HCC) URINALYSIS AND REFLEX TO MICROSCOPIC AND CULTURE Routine 08/24/2022 10:56 AM MASSAGE OPERATOR Symptomatic HIV infection (HCC) from Last 3 Months or Most Recently Relevant to Health Maintenance Results * T-SPOT.TB Blood (11/01/2023 10:16 AM CDT) [facility] T-SPOT.TB Negative SeeBelow Comment: Normal Value: Negative [...] test. T-SPOT.TB Panel A Spot Count [address] [facility] T-SPOT.TB Panel B Spot Count 0 [facility] T-SPOT.TB Negative Control Passed [facility] T-SPOT.TB Positive Control Passed [facility] Comment: Test Performed at: [email or web address] [address] [place] [id number] MINI GEORGE,PHD Blood 11/01/2023 10:1 6 AM CDT 11/01/2023 12:21 PM CDT Dianne L. Gase TRANSPORTATION AIDE LAB MICROBIOLOGY - GENERAL ORDE RABLES Final Result Performing Organization Address [facility] [place] [address] * Hepatitis C antibody Blood (11/01/2023 10:16 AM CDT) Pathologist [facility] Hep C Ab Nonreactive Nonreactive Comment:Antibodies to HCV no t detected. Does NOT exclude the possibility of recent exposure to HCV. Current interpretive data was last revised on 22 Blood 11/01/2023 10:1 6 AM CDT 11/01/2023 12:21 PM CDT Dianne Santizo TRANSPORTATION AIDE LAB MICROBIOLOGY - GENERAL ORDE RABLES Final Result Performing Organization Address [facility] [place] [address] * RPR Blood (11/01/2023 10:16 AM CDT) Pathologist [facility] RPR Nonreactive Nonreactive Blood 11/01/2023 10:1 6 AM CDT 11/01/2023 12:21 PM CDT Dianne Santizo TRANSPORTATION AIDE LAB MICROBIOLOGY - GENERAL ORDE RABLES Final Result Performing Organization Address [facility] de Phone Number [facility] [place] [address] * (ABNORMAL) Hemoglobin A1c (11/01/2023 10:16 AM CDT) Pathologist [facility] Hgb A1C 5.8(H) 4.0 - 5.6 % Estimated Average Glucose 120 mg/dL [facility] Comment: The ADA recommends reporting an estimated [...] NP LAB BLOOD ORDERABLES Final Resu lt [facility] Department [place] [address] * (ABNORMAL) Lipid panel (11/01/2023 10:16 AM [...] revised on 2018. Triglycerides 458(H) <=149 mg/dL [facility] Comment: Interpretive Data Ages < or [...] on 2018. HDL 48 >=40 mg/dL [facility] Comment: Interpretive Data Ages < or [...] on 2018. LDL, calculated See Comment <=[address] [facility] Comment: Unable to calculate LDL due to [...] revised on 2018. Non-HDL Cholesterol 144 mg/dL [facility] Comment: Interpretive Data Ages < or [...] last revised on 2018. Chol/HDL ratio [address] [facility] Blood 11/01/2023 10:1 6 AM CDT 11/01/2023 12:21 PM CDT us Dianne Santizo TRANSPORTATION AIDE LAB BLOOD ORDERABLES Final Resu lt [facility] [place] [address] * Urinalysis reflex to microscopic and culture Urine (08/24/2022 10:56 AM MASSAGE OPERATOR) Color, ur Yellow Yellow [facility] Clarity, ur Clear Clear [facility] Specific gravity, ur 1.022 1.003 - 1.030 [facility] [place] [facility] pH, urine 6.[address] [facility] Protein, ur ql Trace Negative [facility] [place] Glucose, ur ql Negative Negative [facility] Ketones, ur Negative Negative [facility] [place] Bilirubin, ur Negative Negative [facility] Blood, ur Negative Negative [facility] [place] Urobilinogen, ur <2.0 <2.0 mg/dL [facility] Nitrite, ur Negative Negative [facility] [place] [facility] Leukocyte esterase, ur Negative Negative [facility] UA reflex comment Reflex conditions for microscopic UA and culture not met. [facility] Urine 08/24/2022 10:5 6 AM MASSAGE OPERATOR 08/24/2022 4:00 PM MASSAGE OPERATOR Narrative [facility] - 08/24/2022 4:29 PM MASSAGE OPERATOR Urine pH is affected by diet, medications, systemic acid-base disturbances, and renal tubular function. pH may affect urinary stone formation. For example, urine pH below 6.0 may help reduce the tendency for calcium phosphate stones and pH greater than 6.0 may reduce the tendency for uric acid stone formation. Source: [employer]. Last revised 08-26-2017 us Dianne Santizo NP LAB MICROBIOLOGY - GENERAL JEFFREY JOYCE Final Result [facility] [place] [address] from Last 3 Months or Most Recently Relevant to Health Maintenance Insurance [employer] MEDICARE MEDICARE MEDICARE [facility] MEDICARE Address: [address] [address] [place] [address] [facility] MEDICARE Care Teams User Experience Analyst Relationship Specialty Start Date End Date William Vicente MD [address] [place] [address] PCP - General 01/18/17
--- OUTSIDE RECORDS SUMMARY | 2024-10-30 07:06 | XMS_ITS | Clinical Summary ---
Author Organization [facility] Address [facility] [place] [address] Care Team Providers Care Square Shear Operator Name Role Phone William Vicente MD Primary Care Provider Medications amLODIPine (NORVASC) 10 MG tablet Take 10 mg by mouth daily. 09/21/2022 Active atorvastatin (LIPITOR) 40 MG tablet Take 40 mg by mouth daily. 09/24/2022 Active carvedilol (COREG) 12.5 MG tablet Take 12.5 mg by mouth 2 (two) times daily. 09/24/2022 Active quinapril-hydro CHLOROthiazide (ACCURETIC) 20-12.5 MG tablet 02/05/2022 Active dolutegravir (TIVICAY) 50 MG tablet Take 50 mg by mouth daily. Active Emtricitabine-T enofovir AF (DESCOVY) 200-25 MG tablet Take 1 tablet by mouth daily. Active Multiple Vitamins-Minera ls (MULTIVIT/MULTI MINERAL ADULT OR) Take 1 tablet by mouth daily. Active vitamin D3, cholecalciferol , 1.25 mg capsule Take 1.25 mg by mouth daily. Active Cyanocobalamin (B-12) 50 MCG Tab Take 50 mcg by mouth daily. Active aspirin EC (ECOTRIN) 81 MG tablet Take 81 mg by mouth daily. Active cranberry 500 MG Cap Take 1 capsule by mouth 3 (three) times daily. Active zinc gluconate 50 MG Tab Take 1 tablet by mouth daily. Active polycarbophil (FIBER) 625 MG tablet Take 625 mg by mouth daily. Active magnesium oxide (MAG-OX) 250 MG tablet Take 250 mg by mouth daily. Active Active Problems Problem Noted Date Diagnosed Date Renal lesion 02/08/2023 Vitamin D deficiency, unspecified 2023 Iron deficiency anemia, unsp ecified iron deficiency anemia type 2023 Hypomagnesemia 11/12/2022 Stage 3a chronic kidney disease (CKD) 11/02/2022 Hypertension, essential 11/02/2022 HIV infection, unspecified symptom status (CMS/H CC HHS/HCC) 11/02/2022 Urinary frequency 11/02/2022 Benign prostatic hyperplasia without lower urinary tract symptoms 11/02/2022 Encounters Date Type Department Care Team Description 09/07/2024 Orders Only [facility] [address] [place] [id number] Natalia Orozco MD 09/04/2024 9:00 AM STORE ADMINISTRATOR Office Visit [facility] [address] [address] Natalia Orozco MD CKD Follow-up 09/04/2024 Travel 08/28/2024 Scan [facility] [address] [place] [phone] Scanned, Doc [facility] (SCAN) from Last 3 Months Social History Tobacco Use Types Packs/Day Years Used Date Smoking Tobacco: Former Smokeless Tobacco: Never Sex and Gender Information Value Date Recorded Sex Assigned at Not on file Legal Sex Male 11:14 PM STORE ADMINISTRATOR Gender Identity Not on file Sexual Orientation Not on file Last Filed Vital Signs Vital Sign Reading Time Taken Comments Blood Pressure 135/66 09/04/2024 8:54 AM STORE ADMINISTRATOR Pulse 63 09/04/2024 8:54 AM STORE ADMINISTRATOR Temperature - - Respiratory Rate - - Oxygen Saturation - - Inhaled Oxygen Concentration - - Weight 102.1 kg (225 lb) 09/04/2024 8:54 AM STORE ADMINISTRATOR Height 185.4 cm (6' 1 ) 09/04/2024 8:54 AM STORE ADMINISTRATOR Body Mass Index 29.69 09/04/2024 8:54 AM STORE ADMINISTRATOR Plan of Treatment Upcoming Encounters Date Type Department Care Team (Late st Contact Info) Description 03/26/2025 9:30 AM CDT Office Visit [facility] [address] [address] Juan Moscoso MD [address] [place] [id number] Health Maintenance Due Date Last Done Comments Colorectal Cancer Screening Colonoscopy (10 Years) 1950 Meningococcal Vaccine (1 - Risk 2-dose series) 01/17/1954 Hepatitis C 01/17/1970 Zoster Vaccines (1 of 2) 01/17/1971 RSV Immunization or 60+ Years (1 - Risk 60-74 years 1-dose series) 2012 Annual Medicare Wellness Visit 01/17/2017 Pneumococcal Vaccine: 65+ Years (4 of 4 - PPSV23 or PCV20) 11/13/2018 08/02/2014, 11/13/2013, 01/02/2013 DTaP, Tdap and Td Vaccines (2 - Td or Tdap) 12/21/2021 12/22/2011 COVID-19 Vaccine (4 - season) 2024 06/11/2021, 11/01/2020, 10/14/2020 Influenza Adult (#1) 2024 07/07/2019, 05/10/2018, 06/03/2017, Additional history exists Meningococcal B Vaccine Aged Out No l onger eligible based on patient's age to complete this topic RSV Immunizations Under 20 Months Aged Out No longer eligible based on patient's age to complete this topic Procedures Procedure Name Priority Date/Time Associated Diagnosis Comments OUTSIDE LAB (SCAN ORDER) Routine 08/28/2024 from Last 3 Months Results * OUTSIDE LAB (08/28/2024) 08/28/2024 us Doc [facility] Scanned SCANNING Final Result [facility] from Last 3 Months Insurance [employer] Care Teams Square Shear Operator Relationship Specialty Start Date End Date William Vicente MD [address] [place] [address] PCP - General FAMILY PRACTICE 11/02/19
[2024-10-30 07:22] LABS: Basophils Absolute Auto 0.04 K/mm3 (0.00-0.10); Basophils Percent Auto 0.7 % (0.0-1.0); Eosinophils Absolute Auto 0.13 K/mm3 (0.02-0.50); Eosinophils Percent Auto 2.1 % (1.0-6.0); Hematocrit 43.6 % (37.0-46.0); Hemoglobin 14.7 g/dL (12.4-15.3); Immature Granulocyte Absolute 0.02 K/mm3 (0.00-0.00); Immature Granulocyte Percent A 0.3 % (0.0-0.0); Lymphocytes Absolute Auto 1.52 K/mm3 (1.10-4.50); Lymphocytes Percent Auto 24.8 % (18.0-42.0); Mean Corpuscular HGB Conc 33.7 g/dL (32-36); Mean Corpuscular Hemoglobin 30.9 pg (27.0-31.0); Mean Corpuscular Volume 91.8 fL (78.0-102.0); Mean Platelet Volume 10.5 fl (8.7-11.0); Monocytes Absolute Auto 0.47 K/mm3 (0.10-0.90); Monocytes Percent Auto 7.7 % (2.0-11.0); Neutrophils Absolute Auto 3.94 K/mm3 (1.70-7.20); Neutrophils Percent Auto 64.4 % (50.0-70.0); Platelet Count Result 155 K/mm3 (150-420); Red Blood Count 4.75 M/mm3 (4.70-6.10); Red Cell Distribution Width 13.4 % (11.6-14.4); White Blood Count 6.1 K/mm3 (4.8-10.8)
[2024-10-30 08:28] LABS: Alanine Aminotransferase 28 U/L (16-63); Albumin Level 3.7 g/dL (3.4-5.0); Alkaline Phosphatase 97 U/L (46-116); Anion Gap 7 mmol/L (4-12); Aspartate Amino Transferase 17 U/L (15-37); Bilirubin,Total 0.9 mg/dL (0.00-1.00); Blood Urea Nitrogen 12 mg/dL (7-18); Calcium 9.2 mg/dL (8.5-10.1); Carbon Dioxide 29 mmol/L (21-32); Chloride 105 mmol/L (98-108); Estimated Glomerular Filt Rate 56; Glucose 116 mg/dL (70-99); Osmolality Calculated 292 mOsm/kg (285-295); Potassium 3.8 mmol/L (3.5-5.1); Sodium 141 mmol/L (136-145); Thyroid Stimulating Hormone 1.83 uIU/mL (0.36-3.74); Total Protein 7.2 g/dL (6.4-8.2)
== END 2024-10-30 07:03 | disposition home or self-care (01) ==
LOC: CHSLAB 07:04
PROVIDERS: PCP Family Medicine; Visit Provider Family Medicine
DX: I10 Essential (primary) hypertension (principal)
CPT/HCPCS: 36415; 80053; 84443; 85025

== ENCOUNTER 2024-11-14 01:36 | Day surgery (SDC) | payer MEDICARE, SELFPAY ==
[2024-11-03 12:24] VITALS: BMI 28.3
--- NOTE | 2024-11-13 13:38 | P.PNAN_ITS ---
Anes - Initial Pre Proc Eval Procedure: Operation Date: 11/14/24 09:00 Proposed Procedures p Screening Colonoscopy - Liam Broussard DO Date/Time: 11/13/24 13:38 Surgeon: Liam Broussard DO Pre Op Diagnosis: Prior history of colon polyps Patient Data Age: 74 Gender: M Height: 1.85 m Weight: 97.6 kg Allergies Allergy/AdvReac Type Severity Reaction Status Date / Time No Known Allergies Allergy Verified 11/14/24 07:43 Home Medications ?Medication ?Instructions ?Recorded ?Confirmed ?Type amlodipine 10 mg tablet 10 mg PO DAILY 11/03/24 11/14/24 History atorvastatin 40 mg tablet 40 mg PO DAILY 11/03/24 11/14/24 History carvedilol 12.5 mg tablet 12.5 mg PO BID 11/03/24 11/14/24 History dolutegravir 50 mg tablet (Tivicay) 50 mg PO DAILY 11/03/24 11/14/24 History emtricitabine 200 mg-tenofovir 1 tablet PO DAILY 11/03/24 11/14/24 History alafenamide fumarate 25 mg tablet (Descovy) lisinopril 20 1 tablet PO DAILY 11/03/24 11/14/24 History mg-hydrochlorothiazide 12.5 mg tablet Patient hx anesthesia problems: none Family hx anesthesia problems: none Results Review: All pre-operative results and documents have been reviewed as part of the pre- operative evaluation. [facility] Past Medical History Medical History (Updated 11/13/24 @ 13:39 by Sam Pena DO) HIV (human immunodeficiency virus infection) Hyperlipidemia Hypertension Surgical History Surgical History (Updated 11/13/24 @ 13:39 by Sam Pena DO) Hx of CABG 2016 Social History Social History Smoking status: Never smoker Substance use type: does not use Living arrangements: alone Spiritual care concerns: No Anes - Eval Final PreProcedure Day of Procedure 11/13/24 13:38 Patient weight: overweight Heart: regular rate and rhythm Lungs: clear to auscultation Airway: Mallampati scale class II Neurological: alert and oriented Last oral intake: >/= 8 hours ASA classification: III Emergent: no Anesthetic plan: proceed Anesthesia type and monitoring: general GIVS and standard monitoring Results Review: All pre-operative results and documents have been reviewed as part of the pre- operative evaluation. Informed Consent: The patient's anesthetic plan and its attendant risks and benefits were discussed with the patient/family/POA. Questions were solicited and answers provided to the satisfaction of the patient/family/POA.
--- OUTSIDE RECORDS SUMMARY | 2024-11-14 01:39 | XMS_ITS | Referral Summary ---
Author Organization [facility] Address [address] [place] [address] Care Team Providers Care Center Director Lead Teacher Name Role Phone William Vicente MD Primary Care Provide r Encounters Date Type Department Care Team Description 11/06/2024 10:28 AM CDT - 11/06/2024 11:59 PM CDT Hospital Encounter [facility] [address] [place] [address] Discharge Disposition: Discharge to home or self care 11/06/2024 10:00 AM CDT Office Visit [facility] Infectious Diseases [address] [place] [address] Dianne Santizo NP Symptomatic HIV infection (HCC) (Primary Dx); Primary hypertension; High risk medication use; Mixed hyperlipidemia from Last 3 Months Allergies No known active allergies Medications aspirin [...] Diagnosed Date 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 Currently on medication 2. Continue Lipitor and ASA 3. Checked lipids 4. Advised low fat diet and exercise 5. Denies smoking or alcohol use. 6. Advised good BP control Assessment & Plan (02/28/2023 5:16 PM CDT): 1. Currently on medication 2. Continue Lipitor and ASA 3. Checked lipids 4. Advised low fat diet and exercise 5. Advised maintenance of healthy weight 6. Advised good BP control Assessment & Plan (08/29/2021 2:11 PM WOOL DYER): 1. Currently on medication 2. Continue Lipitor per cardiology 3. Checked lipids 4. Advised low fat diet and exercise 5. Advised continued smoking cessation 6. Advised good BP control History of coronary artery bypass surgery 2015 Benign prostatic hyperplasia 08/05/2015 Gastroesophageal reflux disease 05/13/2015 High risk medication use 01/02/2013 Hypertension 08/05/2012 Overview (11/12/2024): Managed on medications Follows with cardiology History of CABG Non-smoker BMI 29 BP today is 119/63 Scr 1.34 in 04/2024 Assessment & Plan (11/12/2024 5:48 PM CDT): 1. Well controlled 2. Continue Lisinopril/HCTZ , Norvasc, and Coreg 3. Checked CMP and UA to assess renal function and proteinuria 4. Discussed (-) effects of alcohol on BP. Denies use 5. Advised to continue not to smoke Assessment & Plan (02/28/2023 5:20 PM CDT): 1. Well controlled 2. Continue Norvasc, Coreg, and Lisinopril/HCTZ 3. Checked CMP and UA to assess renal function and proteinuria 4. Discussed (-) effects of alcohol on BP 5. Advised continued follow up with PMD and cardiology Assessment & Plan (08/29/2021 2:14 PM WOOL DYER): 1. Well controlled 2. Continue Norvasc, Coreg and Quinapril/HCTZ 3. Checked CMP and UA to assess renal function and proteinuria 4. Discussed (-) effects of alcohol on BP 5. Advised continued smoking cessation 6. Advised continued follow up with cardiology Human immunodeficiency virus (HIV) infection 10/2011 Overview (11/12/2024): Diagnosed in 2011 Genotype:T69T/A, V118I, M36I/M, L63P, & V77I. HLA B5701 (-) G6PD Normal Date: 2011 CMV IgG Positive Date: 2012 Toxo IgG Negative Date: 2014 Hepatitis B status: Immune Date: 2011 Hepatitis A: Non immune Date: dose #1 in 01/2015 HCV AB (-) 10/2023 Tspot (-) 10/2023 Previously on Truvada plus Tivicay with labs [...] made. The patient's most recent labs from April 2024 noted CD4 739 (46%) with a viral load of less than 20 copies. Previous labs from October 2023 CD4 564 (47%). Labs from February 2023 noted a viral load [...] system and suppressed virus. Assessment & Plan (11/12/2024 5:46 PM CDT): 1. Continue Descovy plus Tivicay 2. Advised 100% adherence 3. Checked labs to assess for effectiveness and toxicity. Annual labs checked 4. Reminded of undetectable = untransmittable 5. Reminded that condoms are effective barrier against STDS 6. Discussed Prevnar 21 today, but feels that he may have gotten it. Will check with PMD. Assessment & Plan (11/07/2023 3:20 PM CDT): [...] present. Assessment & Plan (08/31/2022 3:51 PM WOOL DYER): 1. Continue Descovy plus Tivicay 2. Advised [...] booster Assessment & Plan (08/29/2021 2:08 PM WOOL DYER): 1. Continue Descovy plus Tivicay 2. Advised [...] infection. Assessment & Plan (09/04/2019 1:48 PM WOOL DYER): 1. Continue Descovy plus Tivicay 2. Advised [...] STDS Assessment & Plan (09/04/2018 6:28 PM WOOL DYER): 1. Continue Truvada plus Tivicay. 2. Advised 100% adherence 3. Checked labs to assess for effectiveness and toxicity. Also checked annual screening labs. 4. Discussed undetectable = untransmittable 5. Reminded that condoms are effective barrier against STDS. Denies sexual activity. Immunizations Immunization Administration Dates Next Due COVID-19 MRNA (MODERNA) .5 M L (50 MCG) VACCINE (12 YEARS AND UP) 05/16/2024 Hep A, Adult 11/04/2015,01/28/2015,01/02/2013 Hep A, Unspecified 11/04/2015,01/28/2015, 013 Influenza, Quadrivalent, Spl it, Intramuscular 06/03/2017 Influenza, Quadrivalent, Spl it, Preservative Free, Intramuscular 07/07/2019,05/10/2018 Influenza, Trivalent, IM (MDV) 4,06/13/2013,06/27/2012,06/11 Influenza, Trivalent, Preser vative Free, Intramuscular 07/20/2016,05/13/2015 Moderna SARS-CoV-2 Monovalen t Vaccination (12+ YRS) 06/11/2021,11/01/2020,10/14/2020 Pneumococcal Conjugate PCV 13 08/02/2014, 014 Pneumococcal Polysaccharide PPV23 11/13/2013, RSV Vaccine, Pref, Recombina nt, Subunit, Adjuvanted, PF, IM (Arexvy) 05/16/2024 Tdap 12/22/2011 Social History Tobacco Use Types [...] PM CDT Legal Sex Male 9:26 PM WOOL DYER Gender Identity Male 03/14/2019 1:20 PM CDT Sexual Orientation Jiang 03/14/2019 1: 20 PM CDT Last Filed Vital Signs Vital Sign Reading Time Taken Comments Blood Pressure 119/72 11/06/2024 9:49 AM CDT Pulse 62 11/06/2024 9:49 AM CDT Temperature 36.9 C (98.4 F) 11/06/2024 9:49 AM CDT Respiratory Rate 18 05/08/2024 10:06 AM CDT Oxygen Saturation 98% 11/06/2024 9:49 AM CDT Inhaled Oxygen Concentration - - Weight 100.7 kg (222 lb) 11/06/2024 9:49 AM CDT Height 185 cm (6' 0.84 ) 11/06/2024 9:49 AM CDT Body Mass Index 29.42 11/06/2024 9:49 AM CDT Plan of Treatment Not on file Procedures Procedure Name Priority Date/Time Associated Diagnosis Comments EGFR Routine 11/06/2024 10:28 AM CDT Symptomatic HIV infection (HCC) Primary hypertension High risk medication use Mixed hyperlipidemia DIFFERENTIAL AUTO Routine 11/06/2024 10: 28 AM CDT Symptomatic HIV infection (HCC) Primary hypertension High risk medication use Mixed hyperlipidemia GLUCOSE, RANDOM (OUTREACH) Routine 11/06/2024 10:28 AM CDT Symptomatic HIV infection (HCC) Primary hypertension High risk medication use Mixed hyperlipidemia COMPREHENSIVE METABOLIC PANEL WITHOUT GLUCOSE (OUTREACH) Routine 11/06/2024 10:28 AM CDT Symptomatic HIV infection (HCC) Primary hypertension High risk medication use Mixed hyperlipidemia CBC WITH AUTO DIFFERENTIAL Routine 11/06/2024 10:28 AM CDT Symptomatic HIV infection (HCC) Primary hypertension High risk medication use Mixed hyperlipidemia COMPREHENSIVE METABOLIC PANEL (OUTREACH) Routine 11/06/2024 10:28 AM CDT Symptomatic HIV infection (HCC) Primary hypertension High risk medication use Mixed hyperlipidemia HEMOGLOBIN A1C Routine 11/06/2024 10:28 AM CDT Symptomatic HIV infection (HCC) Primary hypertension High risk medication use Mixed hyperlipidemia LIPID PANEL Routine 11/06/2024 10:28 AM CDT Symptomatic HIV infection (HCC) Primary hypertension High risk medication use Mixed hyperlipidemia PSA SCREEN Routine 11/06/2024 10:28 AM CDT Symptomatic HIV infection (HCC) Primary hypertension High risk medication use Mixed hyperlipidemia HEPATITIS C ANTIBODY Routine 11/06/2024 10:28 AM CDT Symptomatic HIV infection (HCC) Primary hypertension High risk medication use Mixed hyperlipidemia HIV-1 RNA, QUANTITATIVE, PCR Routine 11/06/2024 10:28 AM CDT Symptomatic HIV infection (HCC) Primary hypertension High risk medication use Mixed hyperlipidemia N. GONORRHOEAE/C. TRACHOMATIS AMPLIFICATION Routine 11/06/2024 10:28 AM CDT Symptomatic HIV infection (HCC) Primary hypertension High risk medication use Mixed hyperlipidemia RPR Routine 11/06/2024 10:28 AM CDT Symptomatic HIV infection (HCC) Primary hypertension High risk medication use Mixed hyperlipidemia T-SPOT.TB Routine 11/06/2024 10:28 AM CDT Symptomatic HIV infection (HCC) Primary hypertension High risk medication use Mixed hyperlipidemia URINALYSIS AND REFLEX TO MICROSCOPIC AND CULTURE Routine 08/24/2022 10:56 AM WOOL DYER Symptomatic HIV infection (HCC) from Last 3 Months or Most Recently Relevant to Health Maintenance Results * N. gonorrhoeae/C. trachomatis Amplification Urine (11/06/2024 10:28 AM CDT) Pathologist [facility] C. trachomatis Not Detected [facility] N. gonorrhoeae Not Detected [facility] Comment: Interpretive Data This assay detects Chlamydia trachomatis and Neisseria gonorrhoeae by nucleic acid amplification testing (NAAT). This assay has been cleared by the [place] Food and Drug administration. The performance characteristics of this test have been verified by the [facility] Molecular Infectious Disease laboratory. The performance characteristics of this test have not been evaluated in individuals less than 14 years of age. Current Interpretive Data was last revised on 2023. Urine (None) 11/06/2024 10:2 8 AM CDT 11/06/2024 1:02 PM CDT Dianne Santizo NP LAB MICROBIOLOGY - GENERAL ORDGabi JOYCE Final Result [facility] Department [place] [address] [facility] * T-SPOT.TB Blood (11/06/2024 10:28 AM CDT) [facility] T-SPOT.TB Negative SeeBelow Comment: Normal Value: [...] test. T-SPOT.TB Panel A Spot Count 0 [facility] T-SPOT.TB Panel B Spot Count 1 [facility] T-SPOT.TB Negative Control Passed [facility] T-SPOT.TB Positive Control Passed [facility] Comment: Test Performed at: [facility] [address] [place] [address] MINI GEORGE,PHD Blood 11/06/2024 10:2 8 AM CDT 11/06/2024 12:59 PM CDT us Dianne Santizo CIVIL STRUCTURAL ENGINEER LAB MICROBIOLOGY - GENERAL ORDE ISIAH Final Result Performing Organization Address [facility] Co de Phone Number [facility] Department [place] [address] * Glucose, random (Outreach) (11/06/2024 10:28 AM CDT) Glucose 100 70 - 199 mg/dL Comment: Interpretive Data Fasting glucose >/= 126 mg/dl is diagnostic for diabetes. Fasting is defined as no caloric intake for at least 8 hours. Fasting glucose between 100 mg/dl to 125 mg/dl is diagnostic of prediabetes. In a patient with classic symptoms of hyperglycemia or hyperglycemic crisis, a random glucose >/= 200 mg/dl is diagnostic for diabetes. In the absence of unequivocal hyperglycemia, results should be confirmed by repeat testing. The classification and Diagnosis of Diabetes Diabetes Care 2021; 46: S19-S40. Current interpretive data was last revised 2022. Blood 11/06/2024 10:2 8 AM CDT 11/06/2024 12:49 PM CDT us Dianne Santizo CIVIL STRUCTURAL ENGINEER LAB BLOOD ORDERABLES Final Resu lt Performing Organization Address [facility] Co de Phone Number [facility] Department [place] [address] * (ABNORMAL) eGFR (11/06/2024 10:28 AM CDT) eGFR 59(L) >=60 mL/min/1. 73 m2 Comment: Interpretive Data Reference Interval Normal >/= 90 mL/min/1.73m2 Mildly decreased* 60 - 89 mL/min/1.73m2 Mildly to moderately decreased 45 - 59 mL/min/1.73m2 Moderately to severely decreased 30 - 44 mL/min/1.73m2 Severely decreased 15 - 29 mL/min/1.73m2 Kidney Failure < 15 mL/min/1.73m2 *Relative to young adult level Estimated glomerular filtration rate is determined by the 2021 CKD-EPI equation recommended by the National Kidney Foundation (A Unifying Approach to GFR Estimation: Recommendations of the NKF-ASK Task Force on Reassessing the Inclusion of Race in Diagnosing Kidney Disease, JASN 202). The CKD-EPI equation should not be used for patients with unstable renal function and has not been validated in children and those over 70. Current interpretive data was last reviewed 2021. Blood 11/06/2024 10:2 8 AM CDT 11/06/2024 12:51 PM CDT us Dianne Santizo NP LAB BLOOD ORDERABLES Final Resu lt [facility] Department [place] [address] * Differential, auto (11/06/2024 10:28 AM CDT) Neutrophil abs 2.7 1.5 - 6.5 K/cumm Imm gran abs 0.0 0.0 - 0.1 K/cumm [facility] Lymphocyte abs 1.7 0.8 - 3.3 K/cumm [facility] Monocyte abs 0.4 0.2 - 0.8 K/cumm [facility] Eosinophil abs 0.1 0.0 - 0.5 K/cumm [facility] Basophil abs 0.0 0.0 - 0.1 K/cumm [facility] Neutrophil pct 54.0 % [facility] Comment: Interpretive Data Percent cell count reference ranges are not reported, since discordance with absolute values may lead to misinterpretation of CBC data. Current Interpretive Data was last revised on 2017. Imm gran pct 0.0 % [facility] Comment: Interpretive Data Percent cell count reference ranges are not reported, since discordance with absolute values may lead to misinterpretation of CBC data. Current Interpretive Data was last revised on 2017. Lymphocyte pct 34.7 % [facility] Comment: Interpretive Data Percent cell count reference ranges are not reported, since discordance with absolute values may lead to misinterpretation of CBC data. Current Interpretive Data was last revised on 2017. Monocyte pct 8.5 % [facility] Comment: Interpretive Data Percent cell count reference ranges are not reported, since discordance with absolute values may lead to misinterpretation of CBC data. Current Interpretive Data was last revised on 2017. Eosinophil pct 2.4 % [facility] Comment: Interpretive Data Percent cell count reference ranges are not reported, since discordance with absolute values may lead to misinterpretation of CBC data. Current Interpretive Data was last revised on 2017. Basophil pct 0.4 % [facility] Comment: Interpretive Data Percent cell count reference ranges are not reported, since discordance with absolute values may lead to misinterpretation of CBC data. Current Interpretive Data was last revised on 2017. Blood 11/06/2024 10:2 8 AM CDT 11/06/2024 12:49 PM CDT Dianne Santizo CIVIL STRUCTURAL ENGINEER LAB BLOOD ORDERABLES Final Resu lt Performing Organization Address [facility] de Phone Number [facility] Department [place] [address] * PSA screen (11/06/2024 10:28 AM CDT) PSA-Total 2.10 <=6.20 ng/mL Comment: Interpretive Data AGE SEX REFERENCE INTERVAL 0 minutes-150 years Female None 0 minutes-49 years Male None 50-59 years Male 0-3.90 60-69 years Male 0-5.40 70-79 years Male 0-6.20 80-150 years Male 0-6.20 The Ranjan PSA Total assay procedure was used. Results from different manufacturers or methods may not be comparable. Serial testing should be performed using the same method. Current interpretive data last revised 21. Blood 11/06/2024 10:2 8 AM CDT 11/06/2024 12:49 PM CDT Dianne Santizo CIVIL STRUCTURAL ENGINEER LAB BLOOD ORDERABLES Final Resu lt Performing Organization Address [facility] de Phone Number [facility] Department [place] [address] * Comprehensive metabolic panel, without glucose (Outreach) (11/06/2024 10:28 AM CDT) [facility] Sodium 140 135 - 145 mmol/L Potassium, pl 3.9 3.3 - 4.9 mmol/L [facility] Chloride 105 97 - 110 mmol/L [facility] CO2 26 22 - 32 mmol/L [facility] Anion gap 9 2 - 15 mmol/L [facility] BUN 16 6 - 25 mg/dL [facility] Creatinine 1.28 0.80 - 1.30 mg/dL [facility] Calcium 9.7 8.5 - 10.3 mg/dL [facility] Protein, pl 7.8 6.5 - 8.5 g/dL [facility] Albumin 4.1 3.5 - 5.0 g/dL [facility] Bilirubin, total 0.6 0.1 - 1.2 mg/dL [facility] Alk phos 98 40 - 130 Units/L [facility] AST 26 10 - 50 Units/L [facility] ALT 23 7 - 55 Units/L [facility] Blood 11/06/2024 10:2 8 AM CDT 11/06/2024 12:49 PM CDT us Dianne Santizo NP LAB BLOOD ORDERABLES Final Resu lt [facility] Department [place] [address] * CBC with auto differential (11/06/2024 10:28 AM CDT) [facility] WBC 4.9 3.8 - 9.9 K/cumm Hgb 15.7 13.0 - 17.5 g/dL [facility] Hct 44.2 38.9 - 50.3 % [facility] Plt 163 150 - 400 K/cumm [facility] MPV 11.4 9.1 - 12.3 fL [facility] RBC 4.94 4.30 - 5.80 M/cumm [facility] MCV 89.5 81.3 - 96.4 fL [facility] MCH 31.8 27.1 - 33.3 pg [facility] MCHC 35.5 32.3 - 35.7 g/dL [facility] RDW CV 13.6 11.1 - 14.9 % [facility] RDW SD 44.6 35.7 - 48.1 fL [facility] NRBC abs 0.00 0.00 - 0.01 K/cumm [facility] Blood 11/06/2024 10:2 8 AM CDT 11/06/2024 12:49 PM CDT Dianne Santizo NP LAB BLOOD ORDERABLES Final Resu lt Performing Organization Address City/[facility] Co de Phone Number [facility] Department [place] [address] * Hepatitis C antibody Blood (11/06/2024 10:28 AM CDT) [facility] Hep C Ab Nonreactive Nonreactive Comment:Antibodies to HCV no t detected. Does NOT exclude the possibility of recent exposure to HCV. Current interpretive data was last revised on 22 Blood 11/06/2024 10:2 8 AM CDT 11/06/2024 12:49 PM CDT us Dianne Santizo NP LAB MICROBIOLOGY - GENERAL ORDE RABLES Final Result Performing Organization Address [facility] Co de Phone Number [facility] [place] [address] * HIV-1 RNA PCR, quantitative Blood (11/06/2024 10:28 AM CDT) [facility] HIV-1 RNA Not Detected [facility] Comment: The quantifiable range of this assay is 20 copies/mL to 10,000,000 copies/mL (1.30 log copies/mL to 7.00 log copies/mL). Testing was performed by the TARA 6800 HIV-1 Test([employer] Testing performed at [facility] Current Interpretive Data was last revised on 2021. Blood 11/06/2024 10:2 8 AM CDT 11/06/2024 1:01 PM CDT Dianne Santizo CIVIL STRUCTURAL ENGINEER LAB MICROBIOLOGY - GENERAL ORDE RABLES Final Result Performing Organization Address [facility] Co de Phone Number [facility] [place] [address] [facility] * RPR Blood (11/06/2024 10:28 AM CDT) Pathologist [facility] RPR Nonreactive Nonreactive Blood 11/06/2024 10:2 8 AM CDT 11/06/2024 12:49 PM CDT Result [facility] Dianne Santizo CIVIL STRUCTURAL ENGINEER LAB MICROBIOLOGY - GENERAL ORDE RABLES Final Result Performing Organization Address [facility] Phone Number [facility] [place] [address] * (ABNORMAL) Hemoglobin A1c (11/06/2024 10:28 AM CDT) Pathologist [facility] Hgb A1C 5.7(H) 4.0 - 5.6 % Estimated Average Glucose 117 mg/dL [facility] Comment: The ADA recommends reporting an estimated Average Glucose (eAG) with all Hemoglobin A1c results using the equation derived from a study of 507 normal and diabetic adults. Minority populations were underrepresented and children were not included. (Diabetes Care 2020; 43(S1): S66-S76). The eAG is not equivalent to a fasting glucose. Blood 11/06/2024 10:2 8 AM CDT 11/06/2024 12:49 PM CDT Dianne Santizo CIVIL STRUCTURAL ENGINEER LAB BLOOD ORDERABLES Final Resu lt Performing Organization Address [facility] Co de Phone Number [facility] [place] [address] * (ABNORMAL) Lipid panel (11/06/2024 10:28 AM CDT) Cholesterol 154 30 - 199 mg/dL Comment: Interpretive Data [...] Data was last revised on 2018. Triglycerides 272(H) <=149 mg/dL [facility] Comment: Interpretive Data Ages < or = [...] Data was last revised on 2018. HDL 53 >=40 mg/dL [facility] Comment: Interpretive Data Ages < or = [...] was last revised on 2018. LDL, calculated 58 <=129 mg/dL [facility] Comment: Interpretive Data Ages < or = 19 years Acceptable: <110 mg/dL Borderline high: 110-129 mg/dL High: >or= 130 mg/dL Ages > or = 20 years Optimal: <100 mg/dL Near optimal: 100-129 mg/dL Borderline high: 130-159 mg/dL High: >160 mg/dL Calculated using the Damien LDL-C estimating equation. This equation was implemented on 2024. Prior to this date LDL-C was estimated using the Friedewald equation. Literature References: 1. Expert Panel on Integrated Guidelines for Cardiovascular Health and Risk Reduction in Children and Adolescents. Pediatrics 2011;128:S213 2. NCEP Expert Panel. Circulation 2004;110:227 3. Damien M et al. [place] Cardiol. 2019December 14;5(5):540-548. doi: 10.1001/jamacardio.2020.0013 Current Interpretive Data was last revised on 2024. Non-HDL Cholesterol 101 mg/dL [facility] Comment: Interpretive Data Ages < or = [...] was last revised on 2018. Chol/HDL ratio 3 [facility] Blood 11/06/2024 10:2 8 AM CDT 11/06/2024 12:49 PM CDT us Dianne Santizo CIVIL STRUCTURAL ENGINEER LAB BLOOD ORDERABLES Final Resu lt [facility] [place] [address] * Urinalysis reflex to microscopic and culture Urine (08/24/2022 10:56 AM WOOL DYER) Color, ur Yellow Yellow [facility] Clarity, ur Clear Clear [facility] Specific gravity, ur 1.022 1.003 - 1.030 [facility] pH, urine 6.0 [facility] Protein, ur ql Trace Negative [facility] Glucose, ur ql Negative Negative [facility] Ketones, ur Negative Negative [facility] Bilirubin, ur Negative Negative [facility] Blood, ur Negative Negative [facility] Urobilinogen, ur <2.0 <2.0 mg/dL [facility] Nitrite, ur Negative Negative [facility] Leukocyte esterase, ur Negative Negative [facility] UA reflex comment Reflex conditions for microscopic UA and culture not met. [facility] Urine 08/24/2022 10:5 6 AM WOOL DYER 08/24/2022 4:00 PM WOOL DYER Narrative [facility] - 08/24/2022 4:29 PM WOOL DYER Urine pH is affected by diet, medications, systemic acid-base disturbances, and renal tubular function. pH may affect urinary stone formation. For example, urine pH below 6.0 may help reduce the tendency for calcium phosphate stones and pH greater than 6.0 may reduce the tendency for uric acid stone formation. Source: [place] [employer]. Last revised 08-26-2017 us Dianne Santizo NP LAB MICROBIOLOGY - GENERAL JEFFREY JOYCE Final Result [facility] Department [place] [address] from Last 3 Months or Most Recently Relevant to Health Maintenance Insurance [facility] MEDICARE MEDICARE [facility] MEDICARE ADVANTAGE [facility] MEDICARE Care Teams Center Director Lead Teacher Relationship Specialty Start Date End Date William Vicente MD [address] [place] [address] [facility] - General 01/18/17
--- OUTSIDE RECORDS SUMMARY | 2024-11-14 01:39 | XMS_ITS | Clinical Summary ---
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 Currently on medication 2. Continue Lipitor [...] cardiology Assessment & Plan (08/29/2021 2:14 PM MAGISTRATE): 1. Well controlled 2. Continue Norvasc, Coreg [...] present. Assessment & Plan (08/31/2022 3:51 PM MAGISTRATE): 1. Continue Descovy plus Tivicay 2. Advised [...] booster Assessment & Plan (08/29/2021 2:08 PM MAGISTRATE): 1. Continue Descovy plus Tivicay 2. Advised [...] infection. Assessment & Plan (09/04/2019 1:48 PM MAGISTRATE): 1. Continue Descovy plus Tivicay 2. Advised [...] STDS Assessment & Plan (09/04/2018 6:28 PM MAGISTRATE): 1. Continue Truvada plus Tivicay. 2. Advised 100% adherence 3. Checked labs to assess for effectiveness and toxicity. Also checked annual screening labs. 4. Discussed undetectable = untransmittable 5. Reminded that condoms are effective barrier against STDS. Denies sexual activity. Encounters Date Type Department Care Team Description 11/06/2024 10:28 AM CDT - 11/06/2024 11:59 PM CDT Hospital Encounter [facility] [address] [place] [address] Discharge Disposition: Discharge to home or self care 11/06/2024 10:00 AM CDT Office Visit [facility] Infectious Diseases [address] [place] [address] Dianne Santizo NP Symptomatic HIV infection (HCC) (Primary Dx); Primary hypertension; High risk medication use; Mixed hyperlipidemia from Last 3 Months Immunizations Immunization Administration Dates Next Due COVID-19 [...] Adjuvanted, PF, IM (Arexvy) 05/16/2024 Tdap 12/22/2011 Family History Medical History Relation [...] PM CDT Legal Sex Male 9:26 PM MAGISTRATE Gender Identity Male 03/14/2019 1:20 PM CDT [...] 11/06/2024 9:49 AM CDT Plan of Treatment Health Maintenance [...] 08/24/2023 08/24/2022, 08/25/2021, 08/26/2020, Additional history exists Influenza Vaccine (#1) 2024 9, 05/10/2018, 06/03/2017, Additional history exists Covid-19 Vaccine (5 - Modern a risk ) 11/14/2024 05/16/2024, 06/11/2021, 11/01/2020, Additional history exists HIV + Chlamydia and Gonorrhe a Screening (Urine) 11/06/2025 11/06/2024 Hemoglobin A1C 11/06/2025 11/06/2024, 10/14, 08/24/2022, Additional history exists Hepatitis C Screening 11/06/2025 11/06/2024 , 11/01/2023, 08/24/2022, Additional history exists Lipid Panel 11/06/2025 11/06/2024, 10/14, 02/22/2023, Additional history exists RPR Screening 11/06/2025 11/06/2024, 10/14, 08/24/2022, Additional history exists T Spot (quantiferon gold) 11/06/20252024, 11/01/2023, 08/24/2022, Additional history exists Hepatitis A Vaccines Completed 11/04/2015, 11/04/2015, 01/28/2015, Additional history exists Prostate Cancer Screening-PSA Discontinued 11/06/2024 Procedures Procedure Name Priority Date/Time Associated Diagnosis [...] MICROSCOPIC AND CULTURE Routine 08/24/2022 10:56 AM MAGISTRATE Symptomatic HIV infection (HCC) from Last 3 Months or Most Recently Relevant to Health Maintenance Results * N. gonorrhoeae/C. trachomatis Amplification Urine (11/06/2024 10:28 AM CDT) Pathologist [facility] C. trachomatis Not Detected [facility] N. gonorrhoeae Not Detected [facility] Comment: Interpretive Data This assay detects Chlamydia trachomatis and Neisseria gonorrhoeae by nucleic acid amplification testing (NAAT). This assay has been cleared by the [place] Food and Drug administration. The performance characteristics of this test have been verified by the [facility] Molecular Infectious Disease laboratory. The performance characteristics of this test have not been evaluated in individuals less than 14 years of age. Current Interpretive Data was last revised on 2023. Urine (None) 11/06/2024 10:2 8 AM CDT 11/06/2024 1:02 PM CDT Dianne Santizo NP LAB MICROBIOLOGY - GENERAL JEFFREY JOYCE Final Result [facility] [place] [address] [facility] * T-SPOT.TB Blood (11/06/2024 10:28 AM CDT) Pathologist [facility] T-SPOT.TB Negative SeeBelow Comment: Normal Value: Negative [...] test. T-SPOT.TB Panel A Spot Count 0 [facility] T-SPOT.TB Panel B Spot Count 1 [facility] T-SPOT.TB Negative Control Passed [facility] T-SPOT.TB Positive Control Passed [facility] Comment: Test Performed at: [facility] [address] [place] [address] MINI GEORGE,PHD Blood 11/06/2024 10:2 8 AM CDT 11/06/2024 12:59 PM CDT us Dianne Santizo [facility] LAB MICROBIOLOGY - GENERAL ORDE RABLES Final Result Performing Organization Address City/[facility] Co de Phone Number [facility] Department [place] [address] * Glucose, random (Outreach) (11/06/2024 10:28 AM [...] 11/06/2024 12:49 PM CDT us Dianne Santizo [facility] PARAMEDIC LAB BLOOD ORDERABLES Final Resu lt Performing Organization Address [facility] Co de Phone Number [facility] Department [place] [address] * (ABNORMAL) eGFR (11/06/2024 10:28 AM CDT) [...] glomerular filtration rate is determined by the 2020 CKD-EPI equation recommended by the National Kidney Foundation (A Unifying Approach to GFR Estimation: Recommendations of the NKF-ASK Task Force on Reassessing the Inclusion of Race in Diagnosing Kidney Disease, JASN 2020). The CKD-EPI equation should not be used for patients with unstable renal function and has not been validated in children and those over 70. Current interpretive data was last reviewed 2021. Blood 11/06/2024 10:2 8 AM CDT 11/06/2024 12:51 PM CDT us Dianne Santizo NP LAB BLOOD ORDERABLES Final Resu lt [facility] Department [place] [address] * Differential, auto (11/06/2024 10:28 AM CDT) Pathologist [facility] Neutrophil abs 2.7 1.5 - 6.5 K/cumm Imm gran abs 0.0 0.0 - 0.1 K/cumm [facility] Lymphocyte abs 1.7 0.8 - 3.3 K/cumm [facility] Monocyte abs 0.4 0.2 - 0.8 K/cumm [facility] Eosinophil abs 0.1 0.0 - 0.5 K/cumm [facility] Basophil abs 0.0 0.0 - 0.1 K/cumm [facility] Neutrophil pct 54.0 % [facility] Comment: Interpretive Data Percent cell count reference ranges are not reported, since discordance with absolute values may lead to misinterpretation of CBC data. Current Interpretive Data was last revised on 2017. Imm gran pct 0.0 % [facility] Comment: Interpretive Data Percent cell count reference ranges are not reported, since discordance with absolute values may lead to misinterpretation of CBC data. Current Interpretive Data was last revised on 2017. Lymphocyte pct 34.7 % [facility] Comment: Interpretive Data Percent cell count reference ranges are not reported, since discordance with absolute values may lead to misinterpretation of CBC data. Current Interpretive Data was last revised on 2017. Monocyte pct 8.5 % [facility] Comment: Interpretive Data Percent cell count reference ranges are not reported, since discordance with absolute values may lead to misinterpretation of CBC data. Current Interpretive Data was last revised on 2017. Eosinophil pct 2.4 % [facility] Comment: Interpretive Data Percent cell count reference ranges are not reported, since discordance with absolute values may lead to misinterpretation of CBC data. Current Interpretive Data was last revised on 2017. Basophil pct 0.4 % [facility] Comment: Interpretive Data Percent cell count reference ranges are not reported, since discordance with absolute values may lead to misinterpretation of CBC data. Current Interpretive Data was last revised on 2017. Blood 11/06/2024 10:2 8 AM CDT 11/06/2024 12:49 PM CDT us Dianne Santizo NP LAB BLOOD ORDERABLES Final Resu lt [facility] [address] [facility] Department [place] [address] * PSA screen (11/06/2024 10:28 AM CDT) [...] CDT 11/06/2024 12:49 PM CDT Dianne Santizo [facility] LAB BLOOD ORDERABLES Final Resu lt Performing Organization Address [facility]/ZIP Co de Phone Number [facility] [place] [place] [address] * Comprehensive metabolic panel, without glucose (Outreach) (11/06/2024 10:28 AM CDT) Sodium 140 135 - 145 mmol/L Potassium, pl 3.9 3.3 - 4.9 mmol/L [facility] Chloride 105 97 - 110 mmol/L [facility] CO2 26 22 - 32 mmol/L [facility] Anion gap 9 2 - 15 mmol/L [facility] BUN 16 6 - 25 mg/dL [facility] Creatinine 1.28 0.80 - 1.30 mg/dL [facility] Calcium 9.7 8.5 - 10.3 mg/dL [facility] Protein, pl 7.8 6.5 - 8.5 g/dL [facility] Albumin 4.1 3.5 - 5.0 g/dL [facility] Bilirubin, total 0.6 0.1 - 1.2 mg/dL [facility] Alk phos 98 40 - 130 Units/L [facility] AST 26 10 - 50 Units/L [facility] ALT 23 7 - 55 Units/L [facility] Blood 11/06/2024 10:2 8 AM CDT 11/06/2024 12:49 PM CDT Dianne Santizo [facility] PARAM[facility]IC LAB BLOOD ORDERABLES Final Resu lt Performing Organization Address [facility]/ZIP Co de Phone Number [facility] Department [place] [address] * CBC with auto differential (11/06/2024 10:28 AM CDT) [facility] WBC 4.9 3.8 - 9.9 K/cumm Hgb 15.7 13.0 - 17.5 g/dL [facility] Hct 44.2 38.9 - 50.3 % [facility] Plt 163 150 - 400 K/cumm [facility] MPV 11.4 9.1 - 12.3 fL [facility] RBC 4.94 4.30 - 5.80 M/cumm [facility] MCV 89.5 81.3 - 96.4 fL [facility] MCH 31.8 27.1 - 33.3 pg [facility] MCHC 35.5 32.3 - 35.7 g/dL [facility] RDW CV 13.6 11.1 - 14.9 % [facility] RDW SD 44.6 35.7 - 48.1 fL [facility] NRBC abs 0.00 0.00 - 0.01 K/cumm [facility] Blood 11/06/2024 10:2 8 AM CDT 11/06/2024 12:49 PM CDT us Dianne Santizo [facility] PARAMEDIC LAB BLOOD ORDERABLES Final Resu lt Performing Organization Address [facility] Co de Phone Number [facility] Department [place] [address] * Hepatitis C antibody Blood (11/06/2024 10:28 AM CDT) [facility] Hep C Ab Nonreactive Nonreactive Comment:Antibodies to HCV no t detected. Does NOT exclude the possibility of recent exposure to HCV. Current interpretive data was last revised on 22 Blood 11/06/2024 10:2 8 AM CDT 11/06/2024 12:49 PM CDT us Dianne Santizo [facility] PARAMEDIC LAB MICROBIOLOGY - GENERAL ORDE RABLES Final Result Performing Organization Address [facility]/ZIP Co de Phone Number [facility] Department [place] [address] * HIV-1 RNA PCR, quantitative Blood (11/06/2024 10:28 AM CDT) [facility] HIV-1 RNA Not Detected [facility] Comment: The quantifiable range of this assay is 20 copies/mL to 10,000,000 copies/mL (1.30 log copies/mL to 7.00 log copies/mL). Testing was performed by the TARA 6800 HIV-1 Test([facility] Testing performed at [facility] Current Interpretive Data was last revised on 2021. Blood 11/06/2024 10:2 8 AM CDT 11/06/2024 1:01 PM CDT Dianne Santizo [facility] PARAMEDIC LAB MICROBIOLOGY - GENERAL [facility] Final Result Performing Organization Address [facility]/[place] [address] [facility] * RPR Blood (11/06/2024 10:28 AM CDT) [facility] RPR Nonreactive Nonreactive Blood 11/06/2024 10:2 8 AM CDT 11/06/2024 12:49 PM CDT Dianne Santizo [facility] PARAMEDIC LAB MICROBIOLOGY - GENERAL [facility] Final Result Performing Organization Address City/[facility] de Phone Number [facility] [place] [address] * (ABNORMAL) Hemoglobin A1c (11/06/2024 10:28 AM CDT) [facility] Hgb A1C 5.7(H) 4.0 - 5.6 % Estimated Average Glucose 117 mg/dL [facility] Comment: The ADA recommends reporting an [...] NP LAB BLOOD ORDERABLES Final Resu lt [facility] Department [place] [address] * (ABNORMAL) Lipid panel (11/06/2024 10:28 AM [...] revised on 2018. Triglycerides 272(H) <=149 mg/dL [facility] Comment: Interpretive Data Ages < or [...] on 2018. HDL 53 >=40 mg/dL [facility] Comment: Interpretive Data Ages [...] on 2018. LDL, calculated 58 <=129 mg/dL [facility] Comment: Interpretive Data Ages < or [...] revised on 2024. Non-HDL Cholesterol 101 mg/dL [facility] Comment: Interpretive Data Ages < or [...] last revised on 2018. Chol/HDL ratio 3 [facility] Blood 11/06/2024 10:2 8 AM CDT 11/06/2024 12:49 PM CDT us Dianne Santizo [facility] PARAM[facility]IC LAB BLOOD ORDERABLES Final Resu lt Performing Organization Address City/[facility]/ZIP Co de Phone Number [facility] [place] [address] * Urinalysis reflex to microscopic and culture Urine (08/24/2022 10:56 AM MAGISTRATE) Color, ur Yellow Yellow [facility] Clarity, ur Clear Clear [facility] Specific gravity, ur 1.022 1.003 - 1.030 [facility] pH, urine 6.0 [facility] Protein, ur ql Trace Negative [facility] Glucose, ur ql Negative Negative [facility] Ketones, ur Negative Negative [facility] Bilirubin, ur Negative Negative [facility] Blood, ur Negative Negative [facility] Urobilinogen, ur <2.0 <2.0 mg/dL [facility] Nitrite, ur Negative Negative [facility] Leukocyte esterase, ur Negative Negative [facility] UA reflex comment Reflex conditions for microscopic UA and culture not met. [facility] Urine 08/24/2022 10:5 6 AM MAGISTRATE 08/24/2022 4:00 PM MAGISTRATE Narrative [facility] - 08/24/2022 4:29 PM MAGISTRATE Urine pH is affected by diet, medications, systemic acid-base disturbances, and renal tubular function. pH may affect urinary stone formation. For example, urine pH below 6.0 may help reduce the tendency for calcium phosphate stones and pH greater than 6.0 may reduce the tendency for uric acid stone formation. Source: [employer]. Last revised 08-26-2017 us Dianne Santizo NP LAB MICROBIOLOGY - GENERAL ORDE ISIAH Final Result Performing Organization Address [facility]/ZIP Co de Phone Number [facility] [place] [address] from Last 3 Months or Most Recently Relevant to Health Maintenance Insurance AET MEDICARE MEDICARE [facility] MEDICARE ADVANTAGE AETNA MEDICARE Care Teams Balancing Machine Set Up Worker Relationship Specialty Start Date End Date William Vicente MD [address] [place] [address] PCP - General 01/18/17
--- OUTSIDE RECORDS SUMMARY | 2024-11-14 01:39 | XMS_ITS | Clinical Summary ---
Author Organization [facility] Address [facility] [place] [address] Care Team Providers Care Computer Technology Trainer Name Role Phone William Vicente MD Primary Care Provider [phone] Medications amLODIPine (NORVASC) 10 MG tablet Take [...] Department Care Team Description 09/07/2024 Orders Only [facility] [address] [place] [id number] Natalia Orozco MD 09/04/2024 9:00 AM DIMMER BOARD OPERATOR Office Visit [facility] [address] [address] Natalia Orozco MD CKD Follow-up 09/04/2024 Travel 08/28/2024 Scan [facility] [address] [place] [phone] Scanned, Doc [facility] (SCAN) from Last 3 Months Social History Tobacco Use Types Packs/Day Years Used Date Smoking Tobacco: Former Smokeless Tobacco: Never Sex and Gender Information Value Date Recorded Sex Assigned at Not on file Legal Sex Male 11:14 PM DIMMER BOARD OPERATOR Gender Identity Not on file Sexual Orientation Not on file Last Filed Vital Signs Vital Sign Reading Time Taken Comments Blood Pressure 135/66 09/04/2024 8:54 AM DIMMER BOARD OPERATOR Pulse 63 09/04/2024 8:54 AM DIMMER BOARD OPERATOR Temperature - - Respiratory Rate - - Oxygen Saturation - - Inhaled Oxygen Concentration - - Weight 102.1 kg (225 lb) 09/04/2024 8:54 AM DIMMER BOARD OPERATOR Height 185.4 cm (6' 1 ) 09/04/2024 8:54 AM DIMMER BOARD OPERATOR Body Mass Index 29.69 09/04/2024 8:54 AM DIMMER BOARD OPERATOR Plan of Treatment Upcoming Encounters Date Type Department Care Team (Late st Contact Info) Description 03/26/2025 9:30 AM CDT Office Visit [facility] [address] [address] Juan Moscoso MD [address] [place] [phone] Health Maintenance Due Date Last Done Comments [...] 11/13/2013, 01/02/2013 DTaP, Tdap and Td Vaccines ( 2 - Td or Tdap) 12/21/2021 12/22/2011 COVID-19 Vaccine (4 - 2023-2 5 season) 2024 06/11/2021, 11/01/2020, 10/14/2020 Meningococcal B Vaccine Aged Out No l onger eligible based on patient's age to complete this topic RSV Immunizations Under 20 Months Aged Out No longer eligible b ased on patient's age to complete this topic Procedures Procedure Name Priority Date/Time Associated Diagnosis Comments OUTSIDE LAB (SCAN ORDER) Routine 08/28/2024 from Last 3 Months Results * OUTSIDE LAB (08/28/2024) 08/28/2024 us Doc [facility] Scanned SCANNING Final Result [facility] from Last 3 Months Insurance AETNA AETNA Care Teams Computer Technology Trainer Relationship Specialty Start Date End Date William Vicente MD [address] [place] [address] PCP - General FAMILY PRACTICE 11/02/19
--- OUTSIDE RECORDS SUMMARY | 2024-11-14 01:40 | XMS_ITS | CONTINUITY OF CARE DOCUMENT ---
Author Name renee duran Address Unknown Organization [facility] Address [address] [place] [address] [address] [place] [address] Phone [phone] Care Team Providers Care Radioisotope Technologist Name Role Phone Sanjeev MCELROY, Jermaine Unavailable GRACIE PEREZ MD Unavailable [phone] GRACIE PEREZ MD Unavailable [phone] PROBLEMS Condition Status Date Provider Notes HTN [...] Pace MD Cardiology examination active Ragini neri ADVERTISING SUPERVISOR ENCOUNTERS Date Type Provider Location Encounter Diag nosis - In-person encounter Office Visit Jermaine Pace MD [place] [facility] - In-person encounter Office Visit Jermaine Pace MD [place] [facility] Cardiology examination - In-person encounter Office Visit Jermaine Pace MD [place] [facility] - In-person encounter Office Visit Jermaine Pace MD [place] [facility] - In-person encounter Office Visit Jermaine Pace MD [facility] Cardiomyopathy - EF 40% echo 08/2021 - In-person encounter Office Visit Jermaine Pace MD [place] [facility] Cardiomyopathy - EF 40% echo 08/2021 - In-person encounter Office Visit Jermaine Pace MD [facility] Hyperlipidemia - In-person encounter Office Visit Jermaine Pace MD [facility] Cardiomyopathy - EF 40% echo 08/2021 - In-person encounter Office Visit Jermaine Pace MD [place] [facility] Hyperlipidemia - In-person encounter Office Visit Jermaine Pace MD [facility] Cardiomyopathy - EF 40% echo 08/2021 - In-person encounter Office Visit Jermaine Pace MD [facility] - In-person encounter Office Visit Jermaine Pace MD [facility] FAMILY HISTORY OF HEART DISEASECAD - S/P CABG - MARTINEZ to LAD, GHAZAL to RCA, SVG to D1, SVG to OM3/2HyperlipidemiaCar diomyopathy - EF 40% echo 08/2021 - In-person encounter Office Visit Antwan Arcos MD [facility] HTN essentialBPH (benign prostatic hypertrophy)HIV positiveChest pain VITAL SIGNS Date Observation Value Provider Body Mass Index (Ratio) 30.34 kg/m2 Laura Pace MD blood pressure, diastolic 70 mm[Hg] Azucena Nolasco blood pressure, systolic 108 mm[Hg] Sandie Nolasco oxygen saturation, oximetry 97 % Lizy Nolasco pulse rate 62 /min Lizy Brimson respiratory rate E&M 12 /min Lizy Brimson weight E&M 230 [lb_av] [facility] 73 [in_i] [facility] blood pressure, cuff size regular [facility] Body Mass Index (Ratio) 30.08 kg/m2 Laura Pace MD blood pressure, diastolic 71 mm[Hg] [facility] pressure, systolic 122 mm[Hg] [facility] oxygen saturation, oximetry 98 % [facility] pulse rate 57 /min [facility] respiratory rate E&M 12 /min [facility] weight E&M 228 [lb_av] [facility] height E&M 73 [in_i] [facility] blood pressure, cuff size regular Azucena [facility] Body Mass Index (Ratio) 29.95 kg/m2 Laura Pace MD blood pressure, diastolic 72 mm[Hg] Sarai nkLogic blood pressure, systolic 120 mm[Hg] Mariella kLogic blood pressure, cuff size regular [place] rret blood pressure, diastolic 72 mm[Hg] Milton rret blood pressure, systolic 120 mm[Hg] Jar ret pulse rate 55 /min Ricci oxygen saturation, oximetry 95 % Ricci respiratory rate E&M 12 /min Ricci weight [...] Mariella kLog blood pressure, diastolic 76 mm[Hg] Tn kal [place] blood pressure, systolic 126 mm[Hg] [facility] helle [place] blood pressure, cuff size large Tn kal [place] oxygen saturation, oximetry 98 % Tanya Ojeda [...] Pace MD respiratory rate E&M 16 /min [facility] pulse rate 62 /min [facility] blood pressure, systolic 130 mm[Hg] Ton [facility] blood pressure, diastolic 70 mm[Hg] To [facility] oxygen saturation, oximetry 97 % [facility] blood pressure, resting Yes [facility] weight E&M 240 [lb_av] [facility] height E&M 73 [in_i] [facility] Body Mass Index (Ratio) 29.29 kg/m2 Laura Pace MD blood pressure, diastolic 70 mm[Hg] Da elgin Derwent blood pressure, systolic 112 mm[Hg] Dac ia [...] by mouth once a day Ragini Loera ADVERTISING SUPERVISOR lisinopril-hydro chlorothiazide 20-12.5 mg tablet active Take [...] history of marijuana use no Ragini Ventimiglia [facility] drug use no Ragini Ventimig sathish [facility] alcohol use, average drinks per day social Ragini Ventimiglia [facility] alcohol use yes Ragini Ventimig sathish [facility] smoking status Never smoker Ragini Ventim iglia [facility] personal history of marijuana use no Ragini Ventimiglia [facility] drug use no Ragini Ventimig sathish [facility] alcohol use, average drinks per day social Ragini Ventimiglia [facility] alcohol use yes Ragini Ventimig sathish [facility] smoking status Never smoker Ragini Ventim iglia [facility] smoking status Never smoker Jermaine chew MD social history E&M Occupation: R etired psychologist Chuck gold has never smoked. Smoking History: Chuck gold [...] Management Plan continue current therapy Raginidomitila Weeksmiglia ADVERTISING SUPERVISOR HRA, CV Assess/Plan, Angina (inactive) Management Plan [...] Payer name Policy type / Coverage type [place] [employer] party ID [employer] MED[employer]ARE [place]URA PPO Medicare [id number] 200 ADVANCE DIRECTIVES Name Date DISCUSSED - NO DECISION MADE TREATMENT PLAN Date Name Performer [id number],C, M ost recent known LDL 71. He continues on Lipitor. We aim for an LDL <70. We will request his most recent labwork from your office. Jermaine Pace MD [id number],C, C hest pain free. Continues on ASA 81mg daily for life. Last stress test was in 2014 before CABG. As his HIV medications increase his cardiovascular risk, he would certainly benefit from a stress test after the next visit. Jermaine Pace MD [id number],C, B lood pressure control is satisfactory. Jermaine Pace MD [id number],S, N o recurrence. Jermaine Pace MD [id number],C, O n medications. Follows [facility] with Dr. Ramirez. Reports his most recent viral load was <20 copies. Jermaine Pace MD [id number],C, C linically stable. Previous echo showed EF 40%. He continues on Coreg. Jermaine Pace MD [id number],S, M ost recent LDL 71. He continues on Lipitor. We aim for an LDL <70. He is due to have repeat labs at [place] next week. Jermaine Pace MD [id number],S, C linically stable. Echo today showed EF 40%. He continues on Coreg. Jermaine Pace MD [id number],S, C linically stable. Echo today shows EF 40%. He continues on Coreg. Jermaine Pace MD [id number],S, C hest pain free. Continues on ASA 81mg daily for life. Last stress test was in 2014 before CABG. Will repeat his stress test at the next visit and his HIV medications increase his cardiovascular risk. Jermaine Pace MD [id number],S, B lood pressure control is satisfactory. Jermaine Pace MD [id number],S, O n medications. Follows [place]. Reports his most recent viral load was <20 copies. [facility]ace [facility] Cardiology: H is updated medication list for this problem includes: Lipitor 40 Mg Tablet (Atorvastatin) ..... 1 tablet once a day Clinton Lucianaroger [facility] Cardiology:BP at goa l continue present medication [...] (Amlodipine) ..... Take 1 once a day [facility] Cardiology:EF of 45% unchanged m ild MR, [...] (Amlodipine) ..... Take 1 once a day [facility] Cardiology:no report s of chest pain or [...] (Amlodipine) ..... Take 1 once a day [facility] Cardiology:no new SO B or decompensation w [...] (Amlodipine) ..... Take 1 once a day [facility] Cardiology [facility] Cardiology:Will get recent lipid panel A djust meds based on numbers H is updated medication list for this problem includes: Lipitor 40 Mg Tablet (Atorvastatin) ..... 1 tablet once a day [facility] Cardiology:BP contro lled c pepe present medication [...] (Amlodipine) ..... Take 1 once a day [facility] Cardiology:Patient w ith history of CAD and [...] Take 1 once a day Ragini Loera [facility] Cardiology: Follows [facility] with Dr. Ramirez. Most [...] Jermaine Pace MD Cardiology: N o recurrence. eJrmaine Pace MD Cardiology: C linically stable. Previous [...] is due to have repeat labs at [place] next week. Jermaine Pace MD Cardiology: C [...] Coreg. Ivan Kim Cardiology:On medica tions. Follows [place]. His viral load is low and being [...] MD Cardiology follow up :On medications. Follows [place]. His viral load is undetectable. Jermaine Pace [...] up :On triple therapy. Follows ID at [place]. His viral load was negative and CD [...] recurrence. Melany Pace MD Cardiology-//:Clinically compens ated. eJrmaine Pace MD Cardiology-//:Continues on Lipit or. Jermaine [...] Pace MD Cardiology:[facility] i [facility]. He continues on antiretroviral therapy. Jermaine Pace MD Cardiology:Related t o CAD, will arrange an echo post revascularization at his next visit. Jermaine Pace MD Cardiology:Chest lindsey n free. Effort tolerance has significantly improved. The sternal incision, radial incision are well healed. He continues on aspirin once a day. Jermaine Pace MD Cardiology:Blood pre ssure control [...] [ - aleshia] APPROVED [ 08/07/2024 - vodna] completed EKG Jermaine Pace MD complet ed EKG Jermaine Pace MD complet ed EKG Jermaine Pace MD complet ed EKG Jermaine Pace MD complet ed EKG Jermaine Pace MD complet ed EKG Jermaine Pace MD complet ed EKG Jermaine Pace MD complet ed SNOMED-CT: 003610661502956 Current Medications Documented Jermaine Pace MD completed SNOMED-CT: 82351671 Physical Exam, Performed: Pulse Exam of Foot Jermaine Pace MD completed BILL Pace MD complet ed SNOMED-CT: 903087288588950 Current Medications Documented Jermaine Pace MD completed SNOMED-CT: 446657201035597 Current Medications Documented Jermaine Pace MD completed SNOMED-CT: 165700163889473 Current Medications Documented Jermaine Pace MD completed SNOMED-CT: 195907037 Smoking Cessation Counseling Jermaine Pace MD completed SNOMED-CT: 53378407 Physical Exam, Performed: Pulse Exam of Foot Jermaine Pace MD completed SNOMED-CT: 819061681701887 Current Medications Documented Antwan Arcos MD completed SNOMED-CT: 40613528 Physical Exam, Performed: Pulse Exam of Foot Antwan Arcos MD completed
[2024-11-14 07:45] VITALS: BP 142/76; PULSE 63; RESP 16; TEMP 36; O2SAT 99; BMI 28.8
[2024-11-14] MEDS: LACTATED RINGERS 1,000 ML 150 ML IV CONT (07:58)
--- NOTE | 2024-11-14 09:56 | PM.IMHP ---
H&P: HPI History of Present Illness Date/Time: 11/14/24 09:56 Chief Complaint: screening for colorectal cancer Narrative: this is a 74-year-old man who presents for colonoscopy. His last colonoscopy was 10 years ago. Two polyps were removed at that time. He denies any hematochezia or melena. He denies family history of colon cancer. Review of Systems Review of Systems: All systems reviewed & are unremarkable except as noted in HPI and below Constitutional: Constitutional: Denies chills, Denies fever(s), Denies headache(s) and Denies weight loss Eyes: Eyes: Denies change in vision ENT: Denies dizziness, Denies headache(s), Denies neck mass and Denies throat swelling Cardiovascular: Cardiovascular: Denies chest pain, Denies lightheadedness and Denies dyspnea Respiratory: Respiratory: Denies cough, Denies dyspnea and Denies wheezing Gastrointestinal: Gastrointestinal: Denies abdominal pain, Denies change in bowel habits, Denies nausea and Denies vomiting Genitourinary: Genitourinary: Denies hematuria and Denies dysuria Musculoskeletal: Musculoskeletal: Reports as per HPI Integumentary/Breasts: Skin/Breast: Reports as per HPI Neurologic: Denies dizziness and Denies headache(s) Allergic/Immunologic: Allergic/Immunologic: Denies throat swelling and Denies wheezing PMF Past Medical History Medical History (Updated 11/14/24 @ 09:56 by Liam Broussard DO) HIV (human immunodeficiency virus infection) Hyperlipidemia Hypertension Surgical History Surgical History (Updated 11/13/24 @ 13:39 by Sam Pena DO) Hx of CABG 2016 Social History Social History Smoking status: Never smoker Substance use type: does not use Living arrangements: alone Spiritual care concerns: No Meds Home Medications and Allergies Home Medications ?Medication ?Instructions ?Recorded ?Confirmed ?Type amlodipine 10 mg tablet 10 mg PO DAILY 11/03/24 11/14/24 History atorvastatin 40 mg tablet 40 mg PO DAILY 11/03/24 11/14/24 History carvedilol 12.5 mg tablet 12.5 mg PO BID 11/03/24 11/14/24 History dolutegravir 50 mg tablet (Tivicay) 50 mg PO DAILY 11/03/24 11/14/24 History emtricitabine 200 mg-tenofovir 1 tablet PO DAILY 11/03/24 11/14/24 History alafenamide fumarate 25 mg tablet (Descovy) lisinopril 20 1 tablet PO DAILY 11/03/24 11/14/24 History mg-hydrochlorothiazide 12.5 mg tablet Allergies Allergy/AdvReac Type Severity Reaction Status Date / Time No Known Allergies Allergy Verified 11/14/24 07:43 Vital Signs Vital Signs - 24 hr 11/14/24 07:45 Temperature 96.8 F L Pulse Rate 63 Respiratory Rate 16 Blood Pressure 142/76 H Pulse Oximetry 99 Oxygen Delivery Room Air Exam Const: General: no acute distress and alert Orientation/consciousness: patient oriented x3 HENMT: Head: normocephalic and atraumatic Ears: hearing grossly normal bilaterally Face/Nose/Sinus: Normal nares present Mouth: Yes Normal oral and palatal mucosa present Eyes: Periorbital: periorbital findings normal Sclera: sclerae normal EOM: EOMs intact bilaterally Neck: Neck: normal visual inspection, no lymphadenopathy and trachea midline Chest: Chest palpation & inspection: normal inspection of the chest Resp: Effort & Inspection: normal respiratory effort Auscultation: clear to auscultation bilaterally Cardio: Jugular venous distension: no JVD Rate: regular rate Rhythm: regular rhythm Heart sounds: S1 normal heart sound present and S2 normal heart sound present Peripheral pulses: Peripheral pulses 2+ throughout GI: Inspection: normal to inspection GI Palp: Yes Soft to palpation, No Tenderness to palpation present (GI), No Guarding due to palpation present (GI) and No Rebound tenderness present Percussion: Yes normal to percussion Auscultation: normal bowel sounds : General: Yes no CVA tenderness Back/Spine/Pelvis: Back: no CVA tenderness Neuro: General: patient oriented x3, no focal motor deficits and CN's II-XI intact bilaterally Cognition (Neuro): normal cognition Speech: normal speech Motor exam (neuro): 5/5 motor strength present throughout Extrem: General: capillary refill normal and no clubbing, cyanosis or edema Assessment and Plan Assessment and plan (1) Screening for colorectal cancer: Code(s): Z12.11 - Encounter for screening for malignant neoplasm of colon; Z12.12 - Encounter for screening for malignant neoplasm of rectum Status: Acute Assessment and Plan: I have recommended colonoscopy. I have discussed the procedure, risks, benefits, and alternatives. Questions were answered. Patient is agreeable to proceed.
[2024-11-14 10:23] VITALS: BP 87/51; PULSE 62; RESP 14; O2SAT 96
[2024-11-14 10:33] VITALS: BP 101/56; BP 113/69; PULSE 59; PULSE 63; RESP 16; RESP 17; O2SAT 100; O2SAT 99
== END 2024-11-14 10:58 | disposition home or self-care (01) ==
PROVIDERS: PCP Family Medicine; Visit Provider Surgery
PROC: 0DJD8ZZ Inspection of Lower Intestinal Tract, Via Natural or Artificial Opening Endoscopic (ICD-10-PCS; CPT 45378; principal; 2024-11-14 09:00)
DX: Z12.11 Encounter for screening for malignant neoplasm of colon (principal); K64.8 Other hemorrhoids; K57.30 Diverticulosis of large intestine without perforation or abscess without bleeding; E78.5 Hyperlipidemia, unspecified; I10 Essential (primary) hypertension; Z98.890 Other specified postprocedural states; Z95.1 Presence of aortocoronary bypass graft; Z21 Asymptomatic human immunodeficiency virus [HIV] infection status; Z86.0100 Personal history of colon polyps, unspecified
CPT/HCPCS: G0105; J2003; J2704; J7120

== ENCOUNTER 2025-02-08 13:10 | Outpatient (CLI) | payer MEDICARE, SELFPAY ==
--- NOTE | ~2025-02-08 | CT_ITS ---
EXAM: CT pelvis wo con - 02/08/2025 13:17 CDT History: 75 years old Male with lower abdominal pain with testicle pain 2 weeks TECHNIQUE: Multidetector CT of the pelvis without contrast. Coronal and sagittal reformats were also provided for review. Automatic exposure control was used for this study. COMPARISON: None Available. FINDINGS: URINARY BLADDER: Within normal limits. VISUALIZED BOWEL: Diffuse wall thickening and fat stranding around the rectum concerning for proctiti s. REPRODUCTIVE ORGANS: Within normal limits. MESENTERY/PERITONEAL CAVITY: No free fluid or pneumoperitoneum. LYMPH NODES: No abdominal or pelvic lymphadenopathy. ABDOMINAL WALL: Bilateral fat-containing inguinal hernias. VASCULATURE: Scattered atherosclerotic disease. MUSCULOSKELETAL: Multilevel degenerative changes of the spine. IMPRESSION: Diffuse wall thickening and fat stranding around the rectum concerning for proctitis. Reviewed, dictated and finalized at location A. IMPRESSION: Diffuse wall thickening and fat stranding around the rectum concerning for proc titis.
== END 2025-02-08 13:11 | disposition home or self-care (01) ==
LOC: CHSIMG 13:12
PROVIDERS: PCP Family Medicine; Visit Provider Family Medicine
DX: R10.30 Lower abdominal pain, unspecified (principal)
CPT/HCPCS: 72192

== ENCOUNTER 2025-02-13 08:52 | Outpatient (CLI) | payer MEDICARE, SELFPAY ==
--- OUTSIDE RECORDS SUMMARY | 2025-02-13 08:59 | XMS_ITS | Clinical Summary ---
Author Organization [facility] Address [address] [place] [address] Care Team Providers Care Battery Assembler Dry Cell Name Role Phone William Vicente MD Primary Care Provide r Allergies No known active allergies Medications aspirin 81 mg tablet daily. 09/09/19 16 Active atorvastatin (LIPITOR) 40 mg tablet 02/18/20 18 Active carvedilol (COREG) 12.5 mg tablet 02/06/20 18 Active amLODIPine (NORVASC) 10 mg tablet Take 1 tablet (10 mg total) by mouth daily 08/29/19 19 Active cranberry 405 mg capsule CRANBERRY CAPSULE 07/25/20 20 Active zinc gluconate-zin c picolinate 30 mg capsule ZINC CAPSULE 07/25/20 20 Active magnesium citrate 100 mg tablet Take 500 % by mouth Active cyanocobalami n (Vitamin B-12) 500 mcg tabletIndicat ions:Preventi on of Vitamin B12 Deficiency Take 1 tablet (500 mcg total) by mouth daily Active ergocalcifero l, vitamin D2, 10 mcg (400 unit) tablet Take by mouth Active cranberry 400 mg capsule CRANBERRY CAPSULE 07/25/20 20 Active multivitamin capsule MULTIVITAMINS ORAL CAPSULE 07/28/20 17 Active cholecalcifer ol (VITAMIN D-3) 400 unit capsule VITAMIN D TABLET 07/28/20 17 Active zinc acetate 25 mg (zinc) capsule ZINC CAPSULE 07/25/20 20 Active lisinopril-hy droCHLOROthia zide (ZESTORETIC) 20-12.5 mg per tablet Take 1 tablet by mouth daily 08/16/18 70 Active Descovy 200-25 mg tablet TAKE 1 TABLET BY MOUTH 1 TIME A DAY 90 tablet 2 08/31/19 25 Active Tivicay 50 mg tablet TAKE 1 TABLET BY MOUTH 1 TIME A DAY 90 tablet 2 02/14/20 25 Active Tivicay 50 mg tablet TAKE 1 TABLET BY MOUTH 1 TIME A DAY 90 tablet 2 06/07/20 24 025 Discontinued Active Problems Problem Noted Date Diagnosed Date Atherosclerotic heart diseas e of [place] coronary artery without angina pectoris 10/08/2015 Cardiomyopathy, [...] control Assessment & Plan (08/29/2021 2:11 PM ADJUSTMENT SUPERVISOR): 1. Currently on medication 2. Continue Lipitor [...] cardiology Assessment & Plan (08/29/2021 2:14 PM ADJUSTMENT SUPERVISOR): 1. Well controlled 2. Continue Norvasc, Coreg [...] present. Assessment & Plan (08/31/2022 3:51 PM ADJUSTMENT SUPERVISOR): 1. Continue Descovy plus Tivicay 2. Advised [...] booster Assessment & Plan (08/29/2021 2:08 PM ADJUSTMENT SUPERVISOR): 1. Continue Descovy plus Tivicay 2. Advised [...] infection. Assessment & Plan (09/04/2019 1:48 PM ADJUSTMENT SUPERVISOR): 1. Continue Descovy plus Tivicay 2. Advised [...] STDS Assessment & Plan (09/04/2018 6:28 PM ADJUSTMENT SUPERVISOR): 1. Continue Truvada plus Tivicay. 2. Advised [...] PM CDT Legal Sex Male 9:26 PM ADJUSTMENT SUPERVISOR Gender Identity Male 03/14/2019 1:20 PM CDT [...] 9:49 AM CDT Height 185 cm (6' 0.84) 11/06/2024 9:49 AM CDT Body Mass Index [...] 08/25/2021, 08/26/2020, Additional history exists Covid-19 Vaccine (5 - Modern a risk season) 2024 05/16/2024, 06/11/2021, 11/01/2020, Additional history exists Influenza Vaccine (#1) 2025 9, 05/10/2018, 06/03/2017, Additional history exists HIV + Chlamydia and [...] Associated Diagnosis Comments HEPATITIS C ANTIBODY Routine 11/06/2024 10:28 AM [...] MICROSCOPIC AND CULTURE Routine 08/24/2022 10:56 AM ADJUSTMENT SUPERVISOR Symptomatic HIV infection (HCC) from Last 3 Months or Most Recently Relevant to Health Maintenance Results * T-SPOT.TB Blood (11/06/2024 10:28 AM CDT) [facility] Signature T-SPOT.TB Negative SeeBelow Comment: Normal Value: Negative [...] test. T-SPOT.TB Panel A Spot Count 0 [facility] T-SPOT.TB Panel B Spot Count 1 [facility] T-SPOT.TB Negative Control Passed [facility] T-SPOT.TB Positive Control Passed [facility] Comment: Test Performed at: [facility], [employer] [address] [place] [phone] MINI GEORGE,PHD Blood 11/06/2024 10:2 8 AM CDT 11/06/2024 12:59 PM CDT us Dianne Santizo NP LAB MICROBIOLOGY - GENERAL JEFFREY JOYCE Final Result [facility] Department [place] [address] * PSA screen (11/06/2024 10:28 AM CDT) [...] 11/06/2024 12:49 PM CDT us Dianne Santizo INTERFACE ENGINEER LAB BLOOD ORDERABLES Final Resu lt Performing Organization Address [facility] Co de Phone Number [facility] Department [place] [place] [address] * Hepatitis C antibody Blood (11/06/2024 10:28 AM CDT) Pathologist [facility] Hep C Ab Nonreactive Nonreactive Comment:Antibodies to HCV no t detected. Does NOT exclude the possibility of recent exposure to HCV. Current interpretive data was last revised on 22 Blood 11/06/2024 10:2 8 AM CDT 11/06/2024 12:49 PM CDT us Dianne Santizo NP LAB MICROBIOLOGY - GENERAL ORDE RABLES Final Result Performing Organization Address City/[facility] Co de Phone Number [facility] [place] [employer] [place] [place] [address] * RPR Blood (11/06/2024 10:28 AM CDT) Pathologist [facility] RPR Nonreactive Nonreactive Blood 11/06/2024 10:2 8 AM CDT 11/06/2024 12:49 PM CDT us Dianne Santizo INTERFACE ENGINEER LAB MICROBIOLOGY - GENERAL ORDE ISIAH Final Result Performing Organization Address [facility] Co de Phone Number [facility] Department [place] [address] * (ABNORMAL) Hemoglobin A1c (11/06/2024 10:28 AM CDT) Hgb A1C 5.7(H) 4.0 - 5.6 % Estimated Average Glucose 117 mg/dL [facility] Comment: The ADA recommends reporting [...] CDT 11/06/2024 12:49 PM CDT Dianne Santizo INTERFACE ENGINEER LAB BLOOD ORDERABLES Final Resu lt Performing Organization Address [facility] de Phone Number [facility] Department [place] [address] * (ABNORMAL) Lipid panel (11/06/2024 10:28 AM [...] revised on 2018. Triglycerides 272(H) <=149 mg/dL [facility] Comment: Interpretive Data Ages < [...] revised on 2018. HDL 53 >=40 mg/dL [facility] Comment: Interpretive Data Ages < [...] on 2018. LDL, calculated 58 <=129 mg/dL [facility] Comment: Interpretive Data Ages < [...] NCEP Expert Panel. Circulation 2004;110:227 3. Damien Landa al. [place] Cardiol. 2020 December 14;5(5):540-548. doi: 10.1001/[email or web address] Current Interpretive Data was last revised on 2024. Non-HDL Cholesterol 101 mg/dL [facility] Comment: Interpretive Data Ages < [...] last revised on 2018. Chol/HDL ratio 3 [facility] Blood 11/06/2024 10:2 8 AM CDT 11/06/2024 12:49 PM CDT us Dianne Santizo INTERFACE ENGINEER LAB BLOOD ORDERABLES Final Resu lt [facility] Department [place] [address] * Urinalysis reflex to microscopic and culture Urine (08/24/2022 10:56 AM ADJUSTMENT SUPERVISOR) Color, ur Yellow Yellow [facility] Clarity, ur Clear Clear [facility] Specific gravity, ur 1.022 1.003 - 1.030 [facility] pH, urine 6.0 [facility] Protein, ur ql Trace Negative [facility] Glucose, ur ql Negative Negative [facility] Ketones, ur Negative Negative [facility] Bilirubin, ur Negative Negative [facility] Blood, ur Negative Negative [facility] Urobilinogen, ur <2.0 <2.0 mg/dL [facility] Nitrite, ur Negative Negative [facility] Leukocyte esterase, ur Negative Negative [facility] UA reflex comment Reflex conditions for microscopic UA and culture not met. [facility] Urine 08/24/2022 10:5 6 AM ADJUSTMENT SUPERVISOR 08/24/2022 4:00 PM ADJUSTMENT SUPERVISOR Narrative [facility] - 08/24/2022 4:29 PM ADJUSTMENT SUPERVISOR Urine pH is affected by diet, medications, systemic acid-base disturbances, and renal tubular function. pH may affect urinary stone formation. For example, urine pH below 6.0 may help reduce the tendency for calcium phosphate stones and pH greater than 6.0 may reduce the tendency for uric acid stone formation. Source: [employer]. Last revised 08-26-2017 us Dianne Santizo NP LAB MICROBIOLOGY - GENERAL ORDE ISIAH Final Result [facility] Department [place] [address] from Last 3 Months or Most Recently Relevant to Health Maintenance Insurance [facility] MEDICARE MEDICARE [facility] MEDICARE [facility] Care Teams Battery Assembler Dry Cell Relationship Specialty Start Date End Date William Vicente MD [address] [place] [address] PCP - General 01/18/17
--- OUTSIDE RECORDS SUMMARY | 2025-02-13 08:59 | XMS_ITS | Clinical Summary ---
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 11/02/2022 Social History Tobacco Use Types Packs/Day Years Used Date Smoking Tobacco: Former Smokeless Tobacco: Never Sex and Gender Information Value Date Recorded Sex Assigned at Not on file Legal Sex Male 11:14 PM RAND TACKER Gender Identity Not on file Sexual Orientation Not on file Last Filed Vital Signs Vital Sign Reading Time Taken Comments Blood Pressure 135/66 09/04/2024 8:54 AM RAND TACKER Pulse 63 09/04/2024 8:54 AM RAND TACKER Temperature - - Respiratory Rate - - Oxygen Saturation - - Inhaled Oxygen Concentration - - Weight 102.1 kg (225 lb) 09/04/2024 8:54 AM RAND TACKER Height 185.4 cm (6' 1) 09/04/2024 8:54 AM RAND TACKER Body Mass Index 29.69 09/04/2024 8:54 AM RAND TACKER Plan of Treatment Health Maintenance Due Date Last Done Comments Colorectal Cancer Screening Colonoscopy (10 Years) 1950 Meningococcal Vaccine (1 - Risk 2-dose series) 01/17/1954 Hepatitis C 01/17/1970 Zoster Vaccines (1 of 2) 01/17/1971 RSV Immunization or 60+ Years (1 - Risk 60-74 years 1-dose series) 2012 Annual Medicare Wellness Visit 01/17/2017 Pneumococcal Vaccine: 50+ Years (4 of 4 - PCV20 or PCV21) 08/02/2019 08/02/2014, 11/13/2013, 01/02/2013 DTaP, Tdap and Td Vaccines ( 2 - Td or Tdap) 12/21/2021 12/22/2011 COVID-19 Vaccine (4 - 2023-2 5 season) 2024 06/11/2021, 11/01/2020, 10/14/2020 Meningococcal B Vaccine Aged Out No l onger eligible based on patient's age to complete this topic RSV Immunizations Under 20 Months Aged Out No longer eligible b ased on patient's age to complete this topic Insurance AETNA AETNA Care Teams Solderer Assembler Relationship Specialty Start Date End Date William Vicente MD [address] [place] [address] PCP - General FAMILY PRACTICE 11/02/19
--- OUTSIDE RECORDS SUMMARY | 2025-02-13 08:59 | XMS_ITS | Referral Summary ---
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 Currently on medication 2. Continue Lipitor [...] cardiology Assessment & Plan (08/29/2021 2:14 PM SOCIAL INSURANCE SPECIALIST): 1. Well controlled 2. Continue Norvasc, Coreg [...] present. Assessment & Plan (08/31/2022 3:51 PM SOCIAL INSURANCE SPECIALIST): 1. Continue Descovy plus Tivicay 2. Advised [...] booster Assessment & Plan (08/29/2021 2:08 PM SOCIAL INSURANCE SPECIALIST): 1. Continue Descovy plus Tivicay 2. Advised [...] infection. Assessment & Plan (09/04/2019 1:48 PM SOCIAL INSURANCE SPECIALIST): 1. Continue Descovy plus Tivicay 2. Advised [...] STDS Assessment & Plan (09/04/2018 6:28 PM SOCIAL INSURANCE SPECIALIST): 1. Continue Truvada plus Tivicay. 2. Advised [...] PM CDT Legal Sex Male 9:26 PM SOCIAL INSURANCE SPECIALIST Gender Identity Male 03/14/2019 1:20 PM CDT [...] MICROSCOPIC AND CULTURE Routine 08/24/2022 10:56 AM SOCIAL INSURANCE SPECIALIST Symptomatic HIV infection (HCC) from Last 3 Months or Most Recently Relevant to Health Maintenance Results * T-SPOT.TB Blood (11/06/2024 10:28 AM CDT) T-SPOT.TB Negative SeeBelow Comment: Normal [...] T-SPOT.TB Panel A Spot Count 0 [facility] T-SPOT.TB Panel B Spot Count 1 [facility] T-SPOT.TB Negative Control Passed [facility] T-SPOT.TB Positive Control Passed [facility] Comment: Test Performed at: [facility], [employer] [address] [place] [phone] MINI GEORGE,PHD Blood 11/06/2024 10:2 8 AM CDT 11/06/2024 12:59 PM CDT Dianne Santizo NP LAB MICROBIOLOGY - GENERAL JEFFREY JOYCE Final Result [facility] [place] [address] * PSA screen (11/06/2024 10:28 AM CDT) [...] CDT 11/06/2024 12:49 PM CDT Dianne Santizo ANIMAL NURSERY WORKER LAB BLOOD ORDERABLES Final Resu lt Performing Organization Address City/[facility] Co de Phone Number [facility] [place] [address] * Hepatitis C antibody Blood (11/06/2024 10:28 AM CDT) Hep C Ab Nonreactive Nonreactive Comment:Antibodies to HCV no t detected. Does NOT exclude the possibility of recent exposure to HCV. Current interpretive data was last revised on 22 Blood 11/06/2024 10:2 8 AM CDT 11/06/2024 12:49 PM CDT Dianne Santizo ANIMAL NURSERY WORKER LAB MICROBIOLOGY - GENERAL ORDE RABLES Final Result Performing Organization Address [facility] Co de Phone Number [facility] [place] [address] * RPR Blood (11/06/2024 10:28 AM CDT) Pathologist [facility] RPR Nonreactive Nonreactive Blood 11/06/2024 10:2 8 AM CDT 11/06/2024 12:49 PM CDT Dianne Santizo ANIMAL NURSERY WORKER LAB MICROBIOLOGY - GENERAL ORDE RABLES Final Result Performing Organization Address [facility] Co de Phone Number [facility] [place] [address] * (ABNORMAL) Hemoglobin A1c (11/06/2024 10:28 AM CDT) Hgb A1C 5.7(H) 4.0 - 5.6 % Estimated Average Glucose 117 mg/dL [facility] Comment: The ADA recommends reporting an [...] 11/06/2024 12:49 PM CDT us Dianne Santizo ANIMAL NURSERY WORKER LAB BLOOD ORDERABLES Final Resu lt [facility] [place] [address] * (ABNORMAL) Lipid panel (11/06/2024 10:28 AM [...] revised on 2018. Triglycerides 272(H) <=149 mg/dL [facility] Comment: Interpretive Data Ages < or [...] revised on 2018. HDL 53 >=40 mg/dL [facility] Comment: Interpretive Data Ages < or [...] on 2018. LDL, calculated 58 <=129 mg/dL [facility] Comment: Interpretive Data Ages < or [...] NCEP Expert Panel. Circulation 2004;110:227 3. Damien Starr et al. [place] Cardiol. 2019December 14;5(5):540-548. doi: [email or web address] Current Interpretive Data was last revised on 2024. Non-HDL Cholesterol 101 mg/dL [facility] Comment: Interpretive Data Ages < or [...] last revised on 2018. Chol/HDL ratio 3 [facility] Blood 11/06/2024 10:2 8 AM CDT 11/06/2024 12:49 PM CDT us Dianne Santizo ANIMAL NURSERY WORKER LAB BLOOD ORDERABLES Final Resu lt Performing Organization Address City/[facility]/ZIP Co de Phone Number [facility] [place] [address] * Urinalysis reflex to microscopic and culture Urine (08/24/2022 10:56 AM SOCIAL INSURANCE SPECIALIST) Color, ur Yellow Yellow [facility] Clarity, ur Clear Clear [facility] Specific gravity, ur 1.022 1.003 - 1.030 [facility] pH, urine 6.0 [facility] Protein, ur ql Trace Negative [facility] Glucose, ur ql Negative Negative [facility] Ketones, ur Negative Negative [facility] Bilirubin, ur Negative Negative [facility] Blood, ur Negative Negative [facility] Urobilinogen, ur <2.0 <2.0 mg/dL [facility] Nitrite, ur Negative Negative [facility] Leukocyte esterase, ur Negative Negative [facility] UA reflex comment Reflex conditions for microscopic UA and culture not met. [facility] Urine 08/24/2022 10:5 6 AM SOCIAL INSURANCE SPECIALIST 08/24/2022 4:00 PM SOCIAL INSURANCE SPECIALIST Narrative [facility] - 08/24/2022 4:29 PM SOCIAL INSURANCE SPECIALIST Urine pH is affected by diet, medications, systemic acid-base disturbances, and renal tubular function. pH may affect urinary stone formation. For example, urine pH below 6.0 may help reduce the tendency for calcium phosphate stones and pH greater than 6.0 may reduce the tendency for uric acid stone formation. Source: [email or web address]. Last revised 08-26-2017 us Dianne Santizo ANIMAL NURSERY WORKER LAB MICROBIOLOGY - GENERAL ORDE ISIAH Final Result Performing Organization Address [facility]/ZIP Co de Phone Number [facility] [place] [address] from Last 3 Months or Most Recently Relevant to Health Maintenance Insurance [facility] MEDICARE MEDICARE [facility] MEDICARE ADVANTAGE [facility] MEDICARE Care Teams Kersey Department Supervisor Relationship Specialty Start Date End Date William Vicente MD [address] [place] [address] PCP - General 01/18/17
[2025-02-13 09:05] LABS: Hematocrit 40.1 % (37.0-46.0); Hemoglobin 13.5 g/dL (12.4-15.3); Immature Granulocyte Percent A 0.2 % (0.0-0.0); Lymphocytes Absolute Auto 1.64 K/mm3 (1.10-4.50); Mean Corpuscular HGB Conc 33.7 g/dL (32-36); Mean Corpuscular Hemoglobin 31.3 pg (27.0-31.0); Mean Corpuscular Volume 92.8 fL (78.0-102.0); Nucleated Red Blood Cells Absolute Auto 0.00 K/mm3 (0.00-0.00); Nucleated Red Blood Cells Perc 0.0 % (0-0.0); Platelet Count Result 236 K/mm3 (150-420); Red Blood Count 4.32 M/mm3 (4.70-6.10); White Blood Count 5.1 K/mm3 (4.8-10.8)
[2025-02-13 09:40] LABS: Alanine Aminotransferase 20 U/L (6-50); Albumin Level 3.9 g/dL (3.5-5.1); Alkaline Phosphatase 93 U/L (38-126); Anion Gap 5 mmol/L (4-12); Aspartate Amino Transferase 24 U/L (17-59); Bilirubin,Total 0.7 mg/dL (0.2-1.3); Blood Urea Nitrogen 17 mg/dL (9-20); Calcium 9.2 mg/dL (8.4-10.2); Carbon Dioxide 30 mmol/L (22-30); Chloride 105 mmol/L (98-107); Estimated Glomerular Filt Rate 56; Glucose 110 mg/dL (65-110); Osmolality Calculated 292 mOsm/kg (285-295); Potassium 4.7 mmol/L (3.4-5.0); Sodium 140 mmol/L (137-145); Total Protein 7.3 g/dL (6.3-8.2)
== END 2025-02-13 08:53 | disposition home or self-care (01) ==
LOC: CHSLAB 08:54
PROVIDERS: PCP Family Medicine; Visit Provider Family Medicine
DX: K62.89 Other specified diseases of anus and rectum (principal)
CPT/HCPCS: 36415; 80053; 85025

== ENCOUNTER 2025-03-19 07:00 | Outpatient (CLI) | payer MEDICARE, SELFPAY ==
--- OUTSIDE RECORDS SUMMARY | 2025-03-19 07:08 | XMS_ITS | Referral Summary ---
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 Currently on medication 2. Continue [...] cardiology Assessment & Plan (08/29/2021 2:14 PM UPHOLSTERY TECHNICIAN): 1. Well controlled 2. Continue Norvasc, [...] present. Assessment & Plan (08/31/2022 3:51 PM UPHOLSTERY TECHNICIAN): 1. Continue Descovy plus Tivicay 2. [...] booster Assessment & Plan (08/29/2021 2:08 PM UPHOLSTERY TECHNICIAN): 1. Continue Descovy plus Tivicay 2. [...] infection. Assessment & Plan (09/04/2019 1:48 PM UPHOLSTERY TECHNICIAN): 1. Continue Descovy plus Tivicay 2. [...] STDS Assessment & Plan (09/04/2018 6:28 PM UPHOLSTERY TECHNICIAN): 1. Continue Truvada plus Tivicay. 2. [...] PM CDT Legal Sex Male 9:26 PM UPHOLSTERY TECHNICIAN Gender Identity Male 03/14/2019 1:20 PM [...] MICROSCOPIC AND CULTURE Routine 08/24/2022 10:56 AM UPHOLSTERY TECHNICIAN Symptomatic HIV infection (HCC) from Last [...] test. T-SPOT.TB Panel A Spot Count 0 [facility] T-SPOT.TB Panel B Spot Count 1 [facility] T-SPOT.TB Negative Control Passed [facility] T-SPOT.TB Positive Control Passed [facility] Comment: Test Performed at: [facility] [employer] [facility] [place] [address] MINI GEORGE,PHD Blood 11/06/2024 10:2 8 AM CDT 11/06/2024 12:59 PM CDT us Dianne Santizo NP LAB MICROBIOLOGY - GENERAL JEFFREY JOYCE Final Result [facility] Department [place] [address] * PSA screen (11/06/2024 10:28 AM CDT) [...] CDT 11/06/2024 12:49 PM CDT Dianne Santizo AUDIT CONSULTANT LAB BLOOD ORDERABLES Final Resu lt Performing Organization Address [facility] Co de Phone Number [facility] [place] [address] * Hepatitis C antibody Blood (11/06/2024 10:28 AM CDT) Pathologist [facility] Hep C Ab Nonreactive Nonreactive Comment:Antibodies to HCV no t detected. Does NOT exclude the possibility of recent exposure to HCV. Current interpretive data was last revised on 22 Blood 11/06/2024 10:2 8 AM CDT 11/06/2024 12:49 PM CDT us Dianne Santizo AUDIT CONSULTANT LAB MICROBIOLOGY - GENERAL ORDE RABLES Final Result Performing Organization Address [facility] de Phone Number [facility] [place] [address] * RPR Blood (11/06/2024 10:28 AM CDT) [facility] RPR Nonreactive Nonreactive Blood 11/06/2024 10:2 8 AM CDT 11/06/2024 12:49 PM CDT Dianne Santizo AUDIT CONSULTANT LAB MICROBIOLOGY - GENERAL ORDE RABLES Final Result Performing Organization Address [facility] de Phone Number [facility] [place] [address] * (ABNORMAL) Hemoglobin A1c (11/06/2024 10:28 AM CDT) [facility] Hgb A1C 5.7(H) 4.0 - 5.6 % Estimated Average Glucose 117 mg/dL [facility] Comment: The ADA recommends reporting an [...] NP LAB BLOOD ORDERABLES Final Resu lt [facility] Department [place] [address] * (ABNORMAL) Lipid panel (11/06/2024 10:28 AM [...] on 2018. Triglycerides 272(H) <=149 mg/dL [facility] Comment: Interpretive Data [...] on 2018. LDL, calculated 58 <=129 mg/dL [facility] Comment: Interpretive Data Ages < or [...] 3. Damien Starr et al. [place] Cardiol. 2020 December 14;5(5):540-548. doi: 10.1001/jamacardio.2020.0013 Current Interpretive Data was last revised on 2024. Non-HDL Cholesterol 101 mg/dL [facility] Comment: Interpretive Data Ages < or [...] last revised on 2018. Chol/HDL ratio 3 [facility] Blood 11/06/2024 10:2 8 AM CDT 11/06/2024 12:49 PM CDT us Dianne Santizo NP LAB BLOOD ORDERABLES Final Resu lt Performing Organization Address City/[facility]/ZIP Co de Phone Number [facility] Department [place] [address] * Urinalysis reflex to microscopic and culture Urine (08/24/2022 10:56 AM UPHOLSTERY TECHNICIAN) Color, ur Yellow Yellow [facility] Clarity, ur Clear Clear [facility] Specific gravity, ur 1.022 1.003 - 1.030 [facility] pH, urine 6.0 [facility] Protein, ur ql Trace Negative [facility] Glucose, ur ql Negative Negative [facility] Ketones, ur Negative Negative [facility] Bilirubin, ur Negative Negative [facility] Blood, ur Negative Negative [facility] Urobilinogen, ur <2.0 <2.0 mg/dL [facility] Nitrite, ur Negative Negative [facility] Leukocyte esterase, ur Negative Negative [facility] UA reflex comment Reflex conditions for microscopic UA and culture not met. [facility] Urine 08/24/2022 10:5 6 AM UPHOLSTERY TECHNICIAN 08/24/2022 4:00 PM UPHOLSTERY TECHNICIAN Narrative [facility] - 08/24/2022 4:29 PM UPHOLSTERY TECHNICIAN Urine pH is affected by diet, medications, systemic acid-base disturbances, and renal tubular function. pH may affect urinary stone formation. For example, urine pH below 6.0 may help reduce the tendency for calcium phosphate stones and pH greater than 6.0 may reduce the tendency for uric acid stone formation. Source: [employer]. Last revised 08-26-2017 us Dianne Santizo NP LAB MICROBIOLOGY - GENERAL ORDE ISIAH Final Result Performing Organization Address [facility]/ZIP Co de Phone Number [facility] Department [place] [address] from Last 3 Months or Most Recently Relevant to Health Maintenance Insurance AET[employer] MEDICARE MEDICARE [facility] Address: [address] [address] [place] [address] [facility] MEDICARE ADVANTAGE [facility] MEDICARE Address: [address] [address] [place] [address] AET[employer] MEDICARE Care Teams Urban Renewal Manager Relationship Specialty Start Date End Date William Vicente MD [address] [place], [place] [id number] PCP - General 01/18/17
--- OUTSIDE RECORDS SUMMARY | 2025-03-19 07:08 | XMS_ITS | Clinical Summary ---
Author Organization 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 Currently on medication 2. Continue Lipitor [...] cardiology Assessment & Plan (08/29/2021 2:14 PM RETAIL TEAM MEMBER): 1. Well controlled 2. Continue Norvasc, Coreg [...] present. Assessment & Plan (08/31/2022 3:51 PM RETAIL TEAM MEMBER): 1. Continue Descovy plus Tivicay 2. Advised [...] booster Assessment & Plan (08/29/2021 2:08 PM RETAIL TEAM MEMBER): 1. Continue Descovy plus Tivicay 2. Advised [...] infection. Assessment & Plan (09/04/2019 1:48 PM RETAIL TEAM MEMBER): 1. Continue Descovy plus Tivicay 2. Advised [...] STDS Assessment & Plan (09/04/2018 6:28 PM RETAIL TEAM MEMBER): 1. Continue Truvada plus Tivicay. 2. Advised [...] PM CDT Legal Sex Male 9:26 PM RETAIL TEAM MEMBER Gender Identity Male 03/14/2019 1:20 PM CDT [...] MICROSCOPIC AND CULTURE Routine 08/24/2022 10:56 AM RETAIL TEAM MEMBER Symptomatic HIV infection (HCC) from Last 3 [...] [facility] Panel B Spot Count 1 [facility] T-SPOT.TB Negative Control Passed [facility] T-SPOT.TB Positive Control Passed [facility] Comment: Test Performed at: [facility] [employer] [facility] [employer] [address] [place] [id number] MINI GEORGE,PHD Blood 11/06/2024 10:2 8 AM CDT 11/06/2024 12:59 PM CDT us Dianne Santizo NP LAB MICROBIOLOGY - GENERAL JEFFREY JOYCE Final Result [facility] One [facility] Department [place] [address] * PSA screen (11/06/2024 10:28 AM CDT) [...] CDT 11/06/2024 12:49 PM CDT Dianne Santizo REVENUE COLLECTOR LAB BLOOD ORDERABLES Final Resu lt Performing Organization Address [facility] Co de Phone Number [facility] Department [place] [address] * Hepatitis C antibody Blood (11/06/2024 10:28 AM CDT) Hep C Ab Nonreactive Nonreactive Comment:Antibodies to HCV no t detected. Does NOT exclude the possibility of recent exposure to HCV. Current interpretive data was last revised on 22 Blood 11/06/2024 10:2 8 AM CDT 11/06/2024 12:49 PM CDT us Dianne Santizo REVENUE COLLECTOR LAB MICROBIOLOGY - GENERAL ORDE RABLES Final Result Performing Organization Address [facility] Co de Phone Number [facility] Department [place] [address] * RPR Blood (11/06/2024 10:28 AM CDT) RPR Nonreactive Nonreactive Blood 11/06/2024 10:2 8 AM CDT 11/06/2024 12:49 PM CDT Dianne Santizo REVENUE COLLECTOR LAB MICROBIOLOGY - GENERAL ORDE RABLES Final Result Performing Organization Address [facility] Co de Phone Number [facility] Department [place] [address] * (ABNORMAL) Hemoglobin A1c (11/06/2024 10:28 AM CDT) Hgb A1C 5.7(H) 4.0 - 5.6 % Estimated Average Glucose 117 mg/dL [facility] Comment: The ADA recommends reporting an estimated [...] 11/06/2024 12:49 PM CDT us Dianne Santizo REVENUE COLLECTOR LAB BLOOD ORDERABLES Final Resu lt [facility] [place] [address] * (ABNORMAL) Lipid panel (11/06/2024 10:28 AM [...] on 2018. Triglycerides 272(H) <=149 mg/dL [facility] Comment: Interpretive Data Ages [...] on 2018. HDL 53 >=40 mg/dL [facility] Comment: Interpretive Data Ages < or = [...] 2018. LDL, calculated 58 <=129 mg/dL [facility] Comment: Interpretive Data Ages < or = [...] revised on 2024. Non-HDL Cholesterol 101 mg/dL [facility] Comment: Interpretive Data Ages < or = [...] last revised on 2018. Chol/HDL ratio 3 [facility] Blood 11/06/2024 10:2 8 AM CDT 11/06/2024 12:49 PM CDT us Dianne Santizo NP LAB BLOOD ORDERABLES Final Resu lt [facility] One [facility] Department [place] [address] * Urinalysis reflex to microscopic and culture Urine (08/24/2022 10:56 AM RETAIL TEAM MEMBER) Color, ur Yellow Yellow [facility] Clarity, ur Clear Clear [facility] Specific gravity, ur 1.022 1.003 - 1.030 [facility] pH, urine 6.0 [facility] Protein, ur ql Trace Negative [facility] Glucose, ur ql Negative Negative [facility] Ketones, ur Negative Negative [facility] Bilirubin, ur Negative Negative [facility] Blood, ur Negative Negative [facility] Urobilinogen, ur <2.0 <2.0 mg/dL [facility] Nitrite, ur Negative Negative [facility] Leukocyte esterase, ur Negative Negative [facility] UA reflex comment Reflex conditions for microscopic UA and culture not met. [facility] Urine 08/24/2022 10:5 6 AM RETAIL TEAM MEMBER 08/24/2022 4:00 PM RETAIL TEAM MEMBER Narrative [facility] - 08/24/2022 4:29 PM RETAIL TEAM MEMBER Urine pH is affected by diet, medications, systemic acid-base disturbances, and renal tubular function. pH may affect urinary stone formation. For example, urine pH below 6.0 may help reduce the tendency for calcium phosphate stones and pH greater than 6.0 may reduce the tendency for uric acid stone formation. Source: [facility]. Last revised 08-26-2017 us Dianne Santizo NP LAB MICROBIOLOGY - GENERAL ORDGabi JOYCE Final Result [facility] Department [place] [address] from Last 3 Months or Most Recently Relevant to Health Maintenance Insurance [facility] MEDICARE MEDICARE [facility] Address: [address] [address] [place] [address] [facility] MEDICARE ADVANTAGE AETNA MEDICARE [facility] MEDICARE Address: [address] [place] [address] Care Teams Manager Mission Relationship Specialty Start Date End Date William Vicente MD [address] [place] [address] PCP - General 01/18/17
--- OUTSIDE RECORDS SUMMARY | 2025-03-19 07:08 | XMS_ITS | Clinical Summary ---
Author Organization [facility] Address [facility] [place] [address] Care Team Providers Care Drafter Automotive Design Name Role Phone William Vicente MD Primary Care Provider [phone] Medications amLODIPine (NORVASC) 10 MG tablet Take [...] on file Legal Sex Male 11:14 PM CONTACT PRINTER DRY FILM Gender Identity Not on file Sexual Orientation Not on file Last Filed Vital Signs Vital Sign Reading Time Taken Comments Blood Pressure 135/66 09/04/2024 8:54 AM CONTACT PRINTER DRY FILM Pulse 63 09/04/2024 8:54 AM CONTACT PRINTER DRY FILM Temperature - - Respiratory Rate - - Oxygen Saturation - - Inhaled Oxygen Concentration - - Weight 102.1 kg (225 lb) 09/04/2024 8:54 AM CONTACT PRINTER DRY FILM Height 185.4 cm (6' 1) 09/04/2024 8:54 AM CONTACT PRINTER DRY FILM Body Mass Index 29.69 09/04/2024 8:54 AM CONTACT PRINTER DRY FILM Plan of Treatment Health Maintenance Due Date [...] this topic Insurance AETNA AETNA Care Teams Drafter Automotive Design Relationship Specialty Start Date End Date William Vicente MD [address] [place] [address] PCP - General FAMILY PRACTICE 11/02/19
[2025-03-19 07:40] LABS: Hematocrit 42.7 % (37.0-46.0); Hemoglobin 14.3 g/dL (12.4-15.3); Mean Corpuscular HGB Conc 33.5 g/dL (32-36); Mean Corpuscular Hemoglobin 31.0 pg (27.0-31.0); Mean Corpuscular Volume 92.4 fL (78.0-102.0); Platelet Count Result 170 K/mm3 (150-420); Red Blood Count 4.62 M/mm3 (4.70-6.10); White Blood Count 4.3 K/mm3 (4.8-10.8)
[2025-03-19 07:42] LABS: Add Urine Microscopic? YES; Appearance Urine Sl Cloudy (Clear); Glucose Urine UA Negative (Negative); Leukocyte Esterase Ur 2+ (Negative); Nitrate Urine Negative (Negative); Specific Grav Ur 1.015 (1.010-1.020)
[2025-03-19 07:54] LABS: Albumin Level 4.3 g/dL (3.5-5.1); Anion Gap 6 mmol/L (4-12); Blood Urea Nitrogen 18 mg/dL (9-20); Calcium 8.7 mg/dL (8.4-10.2); Carbon Dioxide 28 mmol/L (22-30); Chloride 107 mmol/L (98-107); Estimated Glomerular Filt Rate 53; Glucose 112 mg/dL (65-110); Osmolality Calculated 294 mOsm/kg (285-295); Potassium 4.3 mmol/L (3.4-5.0); Sodium 141 mmol/L (137-145); Total Protein Urine Random 28 mg/dL; Ur Ttl Prot Creatinine Ratio 0.11 mg/mg (0-0.20)
== END 2025-03-19 07:01 | disposition home or self-care (01) ==
PROVIDERS: PCP Family Medicine
DX: N18.31 Chronic kidney disease, stage 3a (principal); I12.9 Hypertensive chronic kidney disease with stage 1 through stage 4 chronic kidney disease, or unspecified chronic kidney disease
CPT/HCPCS: 36415; 80069; 81001; 82570; 83970; 84156; 85027

== ENCOUNTER 2025-05-02 07:00 | Outpatient (CLI) | payer MEDICARE, SELFPAY ==
--- OUTSIDE RECORDS SUMMARY | 2012-10-06 19:00 | XMS_ITS | Continuity of Care Document ---
Author Organization [facility], [facility] Address [address] [place] [phone] Phone Care Team Providers Care Linux Network Engineer Name Role Phone Daniel Saldana MD Unavailable Unavailable Procedures Procedure Date Vision svcs frames purchases Bifocal Lens Progressive lens per lens Lens Polycarb A/R Standard Miscellaneous vision service Vision svcs frames purchases Trifocal Lens Vision svcs frames purchases Trifocal Lens Frame Trifocal Lens Advance Directives Directive Yes / No Effective Date File Name No Information Encounters Encounter Description Practice Location Reason(s) For Visit Diagnoses Date Provider Providers Copied on Encounter [facility], [address] [place] [address], [id number], tel:[phone] [facility] No Information Shana Sanchez. [address] [place] [address], [place], [place], [id number], [place]. tel:[phone] [facility], [address] [place] [address], [id number], [place] tel:[phone] [facility] No Information Shana Sanchez. [facility] [address] [facility] [address], [place], [place], [id number], [place]. tel:[phone] [facility], [address] [place] [address], [id number], [place] tel:[phone] [facility]- No Information Jesusjose luis Daniel. [address] [facility] [address], [place], [place], [id number], [place]. tel:[phone] Family History Family Member Type Diagnosis Age At Onset No Information Payers Payer name Insurance type Covered republican ID Authoriza tion(s) No Information Social History Type Description Quantity Date Captured Comments Sex Male Smoking Status No Information Chief Complaint And Reason For Visit No Information Reason For Referral Reason For Referral No Information History Of Present Illness Encounter Date Complaint History Of Prese nt Illness No Information Functional Status Date Functional Assessmen t No Information Instructions Date Instruction Additional Infor mation No Information Assessments Type Assessment Date No Information Patient Care Teams Name Effective Dates (start - stop) Status Members No Information
--- OUTSIDE RECORDS SUMMARY | 2025-05-02 07:05 | XMS_ITS | Clinical Summary ---
Author Organization [facility] Address [address] [place] [address] Care Team Providers Care Training And Documentation Specialist Name Role Phone William Vicente MD Primary Care Provider [phone] Medications amLODIPine (NORVASC) 10 MG tablet Take [...] on file Legal Sex Male 11:14 PM SHIPPING COORDINATOR Gender Identity Not on file Sexual Orientation Not on file Last Filed Vital Signs Vital Sign Reading Time Taken Comments Blood Pressure 135/66 09/04/2024 8:54 AM SHIPPING COORDINATOR Pulse 63 09/04/2024 8:54 AM SHIPPING COORDINATOR Temperature - - Respiratory Rate - - Oxygen Saturation - - Inhaled Oxygen Concentration - - Weight 102.1 kg (225 lb) 09/04/2024 8:54 AM SHIPPING COORDINATOR Height 185.4 cm (6' 1) 09/04/2024 8:54 AM SHIPPING COORDINATOR Body Mass Index 29.69 09/04/2024 8:54 AM SHIPPING COORDINATOR Plan of Treatment Health Maintenance Due Date [...] Tdap) 12/21/2021 12/22/2011 COVID-19 Vaccine (4 - 2024-2 6 season) 2025 06/11/2021, 11/01/2020, 10/14/2020 Meningococcal B Vaccine Aged Out No l onger eligible based on patient's age to complete this topic RSV Immunizations Under 20 Months Aged Out No longer eligible b ased on patient's age to complete this topic Insurance AETNA Care Teams Training And Documentation Specialist Relationship Specialty Start Date End Date William Vicente MD [address] [place] [address] PCP - General FAMILY PRACTICE 11/02/19
[2025-05-02 07:18] LABS: Add Urine Microscopic? YES; Appearance Urine Clear (Clear); Glucose Urine UA Negative (Negative); Hematocrit 42.9 % (37.0-46.0); Hemoglobin 14.4 g/dL (12.4-15.3); Immature Granulocyte Percent A 0.2 % (0.0-0.0); Leukocyte Esterase Ur Trace (Negative); Lymphocytes Absolute Auto 1.63 K/mm3 (1.10-4.50); Mean Corpuscular HGB Conc 33.6 g/dL (32-36); Mean Corpuscular Hemoglobin 31.2 pg (27.0-31.0); Mean Corpuscular Volume 93.1 fL (78.0-102.0); Nitrate Urine Negative (Negative); Nucleated Red Blood Cells Absolute Auto 0.00 K/mm3 (0.00-0.00); Nucleated Red Blood Cells Perc 0.0 % (0-0.0); Platelet Count Result 161 K/mm3 (150-420); Red Blood Count 4.61 M/mm3 (4.70-6.10); Specific Grav Ur 1.010 (1.010-1.020); White Blood Count 4.3 K/mm3 (4.8-10.8)
[2025-05-02 07:41] LABS: MALB Creatinine Ratio 7.3 mg/g (0-30)
[2025-05-02 08:03] LABS: Alanine Aminotransferase 25 U/L (6-50); Albumin Level 4.5 g/dL (3.5-5.1); Alkaline Phosphatase 71 U/L (38-126); Anion Gap 10 mmol/L (4-12); Aspartate Amino Transferase 32 U/L (17-59); Bilirubin,Total 1.0 mg/dL (0.2-1.3); Blood Urea Nitrogen 15 mg/dL (9-20); Calcium 10.0 mg/dL (8.4-10.2); Carbon Dioxide 28 mmol/L (22-30); Chloride 105 mmol/L (98-107); Cholesterol 171 mg/dL (0-200); Estimated Glomerular Filt Rate 51; Glucose 111 mg/dL (65-110); HDL Direct 63 mg/dL; Osmolality Calculated 297 mOsm/kg (285-295); Potassium 5.0 mmol/L (3.4-5.0); Sodium 143 mmol/L (137-145); Total Protein 8.6 g/dL (6.3-8.2); Triglycerides 162 mg/dL (<150)
[2025-05-02 08:33] LABS: Thyroid Stimulating Hormone 1.780 uIU/mL (0.465-4.680)
== END 2025-05-02 07:01 | disposition home or self-care (01) ==
LOC: CHSLAB 07:02
PROVIDERS: PCP Family Medicine; Visit Provider Family Medicine
DX: I10 Essential (primary) hypertension (principal); E78.2 Mixed hyperlipidemia
CPT/HCPCS: 36415; 80053; 80061; 81001; 82043; 84443; 85025